=== PATIENT | male | born 1940 | race Caucasian/White ===

== ENCOUNTER 2017-12-08 11:08 | Observation (INO) | payer OTHER ==
[2017-12-08] MEDS ORDERED: morphine CARPU-JECT 2 MG/1 ML DISP.SYRIN IM ONE (11:12)
[2017-12-08] MEDS ORDERED: morphine SULFATE 4 MG/ML VIAL ONE (11:18)
--- NOTE | 2017-12-08 11:20 | PDOC ---
History of Present Illness - General Chief Complaint: Injury Stated Complaint: DISLOCATED L SHOULDER Time Seen by Provider: 12/08/17 11:12 History Source: Patient Exam Limitations: No Limitations - History of Present Illness Initial Comments: 12/08/17 11:24 Sindi 77 YOM with h/o AAA s/p repair, depression, BPH presenting to the ED s/p mechanical fall after tripping on his carpet. No LOC, +hit head against the fan , also landing on his left shoulder. +left shoulder pain and swelling, possibly dislocated. h/o left shoulder dislocation s/p operative repair and reduction. No prodromal sx. 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 no [place], dizziness, weakness, paresthesias, cp, sob, abd pain, back pain or gait instability. Past History - Past Medical History Allergies/Adverse Reactions: Allergies Allergy/AdvReac Type Severity Reaction Status Date / Time No Known Drug Allergies Allergy Verified 12/08/17 11:10 Home Medications: Ambulatory Orders Aspirin [ASA -] 81 mg PO HS 04/01/16 Paroxetine HCl [Paxil -] 20 mg PO HS 04/01/16 Nicotine Mint ([facility]) 1 tab PO PRN PRN 12/08/17 Anemia: No Asthma: No Cancer: No Cardiac Disorders: No CVA: No COPD: No CHF: No Dementia: No Diabetes: No 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) Disorders: Yes (ENLARGED PROSTATE) HTN: No Hypercholesterolemia: No Liver Disease: No Seizures: No Thyroid Disease: No - Surgical History Abdominal Surgery: Yes (ABDOMINAL AORTIC ANEURYSM 2012) Appendectomy: No Cardiac Surgery: No Cholecystectomy: No Lung Surgery: No Neurologic Surgery: No Orthopedic Surgery: Yes (L SHOULDER DISLOCATION, PARTIAL LEFT KNEE REPAIR) - Suicide/Smoking/Psychosocial Hx Smoking History: Former smoker Have you smoked in the past 12 months: No If you are a former smoker, when did you quit?: 2000 Hx Alcohol Use: No Drug/Substance Use Hx: No Substance Use Type: None Hx Substance Use Treatment: No Review of Systems - Review of Systems Able to Perform ROS?: Yes Comments:: 12/08/17 11:26 Constitutional: no fevers or chills. HEENT: no headache or dizziness. CVS: no cp or syncope. Resp: no sob. Abdomen: no abdominal pain, nausea or vomiting. MUSCULOSKELETAL: +joint pain and swelling. No neck or back pain. SKIN: no redness or skin changes, no discharge, no rash. Hematologic: no easy bruising/bleeding. NEUROLOGIC: No headache, LOC or altered mental status. No weakness, numbness or tingling. All other systems reviewed and negative, or as documented in HPI. *Physical Exam - Physical Exam Comments: 12/08/17 11:24 General: GCS 15 NAD HEENT: NCAT, PERRL, EOMI. Airway intact. No hematoma over forehead Neck: neck supple, no midline C spine tenderness, ROM intact. Resp: Lungs clear, no crepitus Chest: no clavicle or chest wall tenderness CVS: RRR, 2+ pulses throughout. Abdomen: Abdomen soft, NTND, nonperitoneal. Back: Back nontender, no midline spinal tenderness, FROM, no stepoffs. MSK: Pelvis stable, ROM limited in abduction, extension and flexion at left shoulder. +left AC tenderness and squared off shoulder with palp paucity, deltoid/axillnary nerve sensation intact. prox strength 4/5 passive ROM limited 2/2 pain. 5/5 shoulder shrug strength. No distal elbow or forearm or wrist tenderness. sensation grossly intact in median/ radial/ulnar distribution. 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 2+ radialis pulses bilaterally and symmetric. Neuro: Alert, no focal neuro deficits. Skin: intact, normal color and well perfused. no bruising or skin dislocation. 12/08/17 11:33 ED Treatment Course - LABORATORY CBC & Chemistry Diagram: 12/08/17 12:20 12/08/17 12:20 - RADIOLOGY Radiology Studies Ordered: Category Date Time Status HEAD CT WITHOUT CONTRAST [CT] Stat CT Scan 12/08/17 11:12 Ordered HUMERUS-LEFT [RAD] Stat Radiology 12/08/17 11:13 Ordered SHOULDER-LEFT [RAD] Stat Radiology 12/08/17 11:13 Ordered Medical Decision Making - Medical Decision Making 12/08/17 11:26 77 YOM s/p trip and fall, +hit forehead, no LOC, also landed on left shoulder c/ o pain and swelling DDx. prox humerus fx, anterior shoulder dislocation. ICH, SDH, closed head injury. clinically doubt c spine injury or syncope, clear historian and mechanical fall history. no cp or respiratory distress or skin change/findings/ wounds. Vital signs stable. pain med administration with IM morphine plan for XR left shoulder/humerus to r/o prox humerus fx/anterior shoulder dislocation and CT head to r/o bleed neurovascular intact over affected area; oriented appropriately, alert and no focal deficits. . only on ASA, no AC. CT head neg. XR LUE: prox humerus displaced fx and joint space widening in glenoid fossa, inferior displacement noted. placed in sling for immobilization. Plan: Ortho cs to [id number]- pt has fall safety concerns given etiology of his injury today and pt feels more comfortable with hospital observation.. basic labs ordered, TxS. admit for pain control, neurovasc checks and supportive care, fall safety prevention and assessment and ortho eval, spoke with JORGE Phelps, in agreement with plan, most likely nonoperative. admitted to hospitalist. 12/08/17 12:00 12/08/17 12:20 *DC/Admit/Observation/Transfer Diagnosis at time of Disposition: Closed fracture of left proximal humerus Qualifiers: Encounter type: initial encounter Fracture morphology: unspecified fracture morphology Qualified Code(s): S42.202A - Unspecified fracture of upper end of left humerus, initial encounter for closed fracture - Discharge Dispostion Condition at time of disposition: Guarded Decision to Admit order: Yes Decision to Admit order Date/Time: 12/08/17 12:20 12/08/17: 12:20pm - Referrals - Patient Instructions - Post Discharge Activity
[2017-12-08 11:30] VITALS: BMI 25.7
[2017-12-08 12:58] LABS: ANION GAP 6 (8-16); BASO % 0.7 % (0-2.0); BLOOD UREA NITROGEN 29 mg/dl (7-18); CHLORIDE 103 mmol/L (98-107); CO2 25 mmol/L (22-28); CREATININE 0.9 mg/dl (0.6-1.3); EOS % 5.5 % (0-4.5); GLUCOSE,RANDOM 121 mg/dl (74-106); HEMATOCRIT 39.3 % (35.4-49); HEMOGLOBIN 13.6 GM/dl (11.7-16.9); LYMPH % 16.9 % (8-40); MCH 32.2 pg (25.7-33.7); MCHC 34.6 g/dl (32.0-35.9); MEAN PLT VOLUME 7.9 fl (7.5-11.1); MONO % 7.1 % (3.8-10.2); NEUT % 69.8 % (42.8-82.8); PLATELET COUNT 167 K/MM3 (134-434); RBC 4.22 M/mm3 (4.00-5.60); SODIUM 134 mmol/L (136-145); WHITE BLOOD COUNT 8.8 K/mm3 (4.0-10.8)
--- NOTE | 2017-12-08 13:20 | HP ---
CHIEF COMPLAINT: s/p mechanical fall, left shoulder pain PCP: Dr Dawson HISTORY OF PRESENT ILLNESS: Patient is a 77 y/o male with a past medical history of anxiety, past surgical history of partial left knee replacement, AAA repair 2012 and left shoulder rotator cuff repair 1978. Patient reports he was ambulating at home, tripped on his area rug and fell onto his left shoulder. He reports ongoing pain to the left upper extremity that worsens upon movement. Patient denies any paresthesia to the upper extremity ER course was notable for: (1)x-ray of left humerus, comminuted displaced left head and neck fracture (2)ct of head no acute pathology (3)chest xray: no infiltrates no effusions noted Recent Travel: none PAST MEDICAL HISTORY: see HPI PAST SURGICAL HISTORY: see HPI Social History: retired, resides at home alone Smoking:none Alcohol:none Drugs: none Family History:non-contributory allergies: No Known Drug Allergies Allergy (Verified 12/08/17 11:10) HOME MEDICATIONS: Home Medications Medication Instructions Recorded Aspirin [ASA -] 81 mg PO HS 04/01/16 Paroxetine HCl [Paxil -] 20 mg PO HS 04/01/16 REVIEW OF SYSTEMS CONSTITUTIONAL: Absent: fever, chills, diaphoresis, generalized weakness, malaise, loss of appetite, weight change HEENT: Absent: rhinorrhea, nasal congestion, throat pain, throat swelling, difficulty swallowing, mouth swelling, ear pain, eye pain, visual changes CARDIOVASCULAR: Absent: chest pain, syncope, palpitations, irregular heart rate, lightheadedness , peripheral edema RESPIRATORY: Absent: cough, shortness of breath, dyspnea with exertion, orthopnea, wheezing, stridor, hemoptysis GASTROINTESTINAL: Absent: abdominal pain, abdominal distension, nausea, vomiting, diarrhea, constipation, melena, hematochezia GENITOURINARY: Absent: dysuria, frequency, urgency, hesitancy, hematuria, flank pain, genital pain MUSCULOSKELETAL: Present: left shoulder pain Absent: myalgia, arthralgia, joint swelling, back pain, neck pain SKIN: Absent: rash, itching, pallor HEMATOLOGIC/IMMUNOLOGIC: Absent: easy bleeding, easy bruising, lymphadenopathy, frequent infections ENDOCRINE: Absent: unexplained weight gain, unexplained weight loss, heat intolerance, cold intolerance NEUROLOGIC: Absent: headache, focal weakness or paresthesias, dizziness, unsteady gait, seizure, mental status changes, bladder or bowel incontinence PSYCHIATRIC: Absent: anxiety, depression, suicidal or homicidal ideation, hallucinations. PHYSICAL EXAMINATION Vital Signs - 24 hr 12/08/17 12/08/17 12/08/17 11:09 13:00 13:06 Temperature 98.7 F 97.8 F 97.8 F Pulse Rate 75 68 Pulse Rate [ 68 Right Radial] Respiratory 16 16 16 Rate Blood Pressure 139/90 120/77 Blood Pressure 120/77 [Right Arm] O2 Sat by Pulse 96 96 96 Oximetry (%) GENERAL: Awake, alert, and fully oriented, in no acute distress. HEAD: Normal with no signs of trauma. EYES: Pupils equal, round and reactive to light, extraocular movements intact, sclera anicteric, conjunctiva clear. No lid lag. EARS, NOSE, THROAT: Ears normal, nares patent, oropharynx clear without exudates. Moist mucous membranes. NECK: Normal range of motion, supple without lymphadenopathy, JVD, or masses. LUNGS: Breath sounds equal, clear to auscultation bilaterally. No wheezes, and no crackles. No accessory muscle use. HEART: Regular rate and rhythm, normal S1 and S2 without murmur, rub or gallop. ABDOMEN: Soft, nontender, not distended, normoactive bowel sounds, no guarding, no rebound, no masses. No hepatomegaly or splenomegaly. MUSCULOSKELETAL: Normal range of motion at all joints. No bony deformities or tenderness. No CVA tenderness. UPPER EXTREMITIES: 2+ pulses, warm, well-perfused. No cyanosis. No clubbing. No peripheral edema. LEFT UPPER EXTREMITY: + DEFORMITY OF THE PROXIMAL HUMERUS WITH ECCHYMOSIS, LESS THAN 3 SECOND CAPILLARY REFILL +4 RADIAL PULSES PATIENT IS ABLE TO MOVE THE DIGITS OF THE HAND WITHOUT ANY DIFFICULTY LOWER EXTREMITIES: 2+ pulses, warm, well-perfused. No calf tenderness. No peripheral edema. NEUROLOGICAL: Cranial nerves II-XII intact. Normal speech. Normal gait. PSYCHIATRIC: Cooperative. Good eye contact. Appropriate mood and affect. SKIN: Warm, dry, normal turgor, no rashes or lesions noted, normal capillary refill. Laboratory Results - last 24 hr 12/08/17 12/08/17 12:20 12:20 WBC 8.8 RBC 4.22 Hgb 13.6 Hct 39.3 MCV 93.0 MCH 32.2 MCHC 34.6 RDW 12.0 Plt Count 167 D MPV 7.9 Absolute Neuts (auto) 6.1 Neutrophils % 69.8 Lymphocytes % 16.9 Monocytes % 7.1 Eosinophils % 5.5 H Basophils % 0.7 Sodium 134 L Potassium 4.0 D Chloride 103 Carbon Dioxide 25 D Anion Gap 6 L BUN 29 H Creatinine 0.9 Creat Clearance w eGFR > 60 Random Glucose 121 H D Calcium 9.0 ASSESSMENT/PLAN: 1) ms left humeral head/neck fracture - ortho consulted by ED physician, Dr Mullen - britton to left upper extremity - neurovascular checks -tylenol for minimal pain, oxycodone for severe pain - physical therapy evaluation f/e/n - regular diet ppx - oob - less than 2mn stay dispo: pt requires obsv admission Visit type - Emergency Visit Emergency Visit: Yes ED Registration Date: 12/08/17 Care time: The patient presented to the Emergency Department on the above date and was hospitalized for further evaluation of their emergent condition. - New Patient This patient is new to me today: Yes Date on this admission: 12/08/17 - Critical Care Critical Care patient: No Hospitalist Screening - Colonoscopy Questionnaire Colonoscopy Questionnaire: Colonoscopy Questionnaire - Patient: 50 - 75 years old and never had a screening colonoscopy: No History of colon or rectal polyps, or CA: No History of IBD, Crohn's disease or UC: No History of abdominal radiation therapy as a child: No - Relative: 1 with colon or rectal CA, or polyps at age 60 or younger: No Colon or rectal CA diagnosed at age 45 or younger: No Multiple relatives with colon or rectal CA: No - Outcome: Screening Result: Negative Screen
[2017-12-08] MEDS: oxyCODONE HCL 5 MG TABLET PO PRN (20:00)
[2017-12-08] MEDS: ACETAMINOPHEN 325 MG TABLET (FP) PO PRN (21:08)
[2017-12-08] MEDS ORDERED: ASPIRIN 81 MG CHEWABLE TABLETS PO SCH (22:00)
[2017-12-08] MEDS ORDERED: PARoxetine HCL 20 MG TABLET (FP) PO SCH (22:00)
[2017-12-09] MEDS: oxyCODONE HCL 5 MG TABLET PO PRN (06:33)
--- NOTE | 2017-12-09 08:46 | CON.ORTH ---
Consult Reason for Consultation:: left humerus fx - Alcohol/Substance Use Hx Alcohol Use: No - Smoking History Smoking history: Former smoker Have you smoked in the past 12 months: No If you are a former smoker, when did you quit?: 2000 Home Medications - Allergies Allergies/Adverse Reactions: Allergies Allergy/AdvReac Type Severity Reaction Status Date / Time No Known Drug Allergies Allergy Verified 12/08/17 11:10 - Home Medications Home Medications: Ambulatory Orders Aspirin [ASA -] 81 mg PO HS 04/01/16 Paroxetine HCl [Paxil -] 20 mg PO HS 04/01/16 Nicotine Mint ([facility]) 1 tab PO PRN PRN 12/08/17 Physical Exam for Ortho Vital Signs: Vital Signs Temperature 98.8 F 12/09/17 05:00 Pulse Rate 80 12/09/17 05:00 Respiratory Rate 18 12/09/17 05:00 Blood Pressure 112/59 12/09/17 05:00 O2 Sat by Pulse Oximetry (%) 94 L 12/09/17 05:00 Labs: CBC, BMP 12/08/17 12:20 12/08/17 12:20 - Upper Extremity Shoulder: Yes: Left, Limited ROM, Pain, Swelling, Tenderness, Other (well healed surgical incision, + swelling, ++ ttp, decr rom, nvi) Imaging - Results X-ray: Report Reviewed, Image Reviewed Assessment/Plan 77 y/o male with a past medical history of anxiety, past surgical history of partial left knee replacement, AAA repair 2012 and left shoulder rotator cuff repair 1978. Patient reports he was ambulating at home, tripped on his area rug and fell onto his left shoulder. He reports ongoing pain to the left upper extremity that worsens upon movement. Patient denies any paresthesia to the upper extremity. a/p left proximal humerus fx No surgical treatment at this time sling NWB pain control ok to d/c from ortho pov d/c planning d/w Dr. Levin
--- NOTE | 2017-12-09 11:51 | DS ---
Physical Exam: SUBJECTIVE: Patient seen and examined patient reports feeling well and denies any chest pain or shortness of breath, does report pain to the left upper arm denies any paresthesia extremity OBJECTIVE: Patient is a 77 y/o male with a past medical history of anxiety, past surgical history of partial left knee replacement, AAA repair 2012 and left shoulder rotator cuff repair 1978. Patient reports he was ambulating at home, tripped on his area rug and fell onto his left shoulder. He reports ongoing pain to the left upper extremity that worsens upon movement. Patient denies any paresthesia to the upper extremity ER course was notable for: (1)x-ray of left humerus, comminuted displaced left head and neck fracture (2)ct of head no acute pathology (3)chest xray: no infiltrates no effusions noted Vital Signs Period Temp Pulse Resp BP Sys/Verde Pulse Ox Last 24 Hr 97.6 F-98.8 F 68-84 16-18 97-120/55-77 94-96 PHYSICAL EXAM GENERAL: Awake, alert, and fully oriented, in no acute distress. HEAD: Normal with no signs of trauma. EYES: Pupils equal, round and reactive to light, extraocular movements intact, sclera anicteric, conjunctiva clear. No lid lag. EARS, NOSE, THROAT: Ears normal, nares patent, oropharynx clear without exudates. Moist mucous membranes. NECK: Normal range of motion, supple without lymphadenopathy, JVD, or masses. LUNGS: Breath sounds equal, clear to auscultation bilaterally. No wheezes, and no crackles. No accessory muscle use. HEART: Regular rate and rhythm, normal S1 and S2 without murmur, rub or gallop. ABDOMEN: Soft, nontender, not distended, normoactive bowel sounds, no guarding, no rebound, no masses. No hepatomegaly or splenomegaly. MUSCULOSKELETAL: Normal range of motion at all joints. No bony deformities or tenderness. No CVA tenderness. UPPER EXTREMITIES: 2+ pulses, warm, well-perfused. No cyanosis. No clubbing. No peripheral edema. LEFT UPPER EXTREMITY: + DEFORMITY OF THE PROXIMAL HUMERUS WITH ECCHYMOSIS, LESS THAN 3 SECOND CAPILLARY REFILL +4 RADIAL PULSES PATIENT IS ABLE TO MOVE THE DIGITS OF THE HAND WITHOUT ANY DIFFICULTY LOWER EXTREMITIES: 2+ pulses, warm, well-perfused. No calf tenderness. No peripheral edema. NEUROLOGICAL: Cranial nerves II-XII intact. Normal speech. Normal gait. PSYCHIATRIC: Cooperative. Good eye contact. Appropriate mood and affect. SKIN: Warm, dry, normal turgor, no rashes or lesions noted, normal capillary refill. LABS Laboratory Results - last 24 hr 12/08/17 12/08/17 12/08/17 12:20 12:20 12:20 WBC 8.8 RBC 4.22 Hgb 13.6 Hct 39.3 MCV 93.0 MCH 32.2 MCHC 34.6 RDW 12.0 Plt Count 167 D MPV 7.9 Absolute Neuts (auto) 6.1 Neutrophils % 69.8 Lymphocytes % 16.9 Monocytes % 7.1 Eosinophils % 5.5 H Basophils % 0.7 Sodium 134 L Potassium 4.0 D Chloride 103 Carbon Dioxide 25 D Anion Gap 6 L BUN 29 H Creatinine 0.9 Creat Clearance w eGFR > 60 Random Glucose 121 H D Calcium 9.0 Blood Type O NEGATIVE Antibody Screen Negative HOSPITAL COURSE: patient was admitted from the emergency department to observation for pain management for a left humeral head/neck fracture. Orthopedic surgeon (JORGE morales) was consulted. Sling applied, the patient ambulated throughout nursing station without any difficulty. Pain was well controlled with narcotic and nonnarcotic management. Date of Admission:12/08/17 Date of Discharge: 12/09/17 Minutes to complete discharge: 45 Discharge Summary Reason For Visit: CLOSED FRACTURE OF LEFT PROXIMAL HUMERUS Current Active Problems Closed fracture of left proximal humerus (Acute) Condition: Guarded - Instructions Referrals: Dirk Funez MD [Primary Care Provider] - - Home Medications Comprehensive Discharge Medication List: Ambulatory Orders Aspirin [ASA -] 81 mg PO HS 04/01/16 Paroxetine HCl [Paxil -] 20 mg PO HS 04/01/16 Nicotine Mint ([facility]) 1 tab PO PRN PRN 12/08/17
--- NOTE | 2017-12-09 14:33 | EKG ---
Test Reason : Blood Pressure : / mmHG Vent. Rate : 074 BPM Atrial Rate : 074 BPM P-R Int : 168 ms QRS Dur : 082 ms QT Int : 386 ms P-R-T Axes : -10 005 029 degrees QTc Int : 428 ms POOR DATA QUALITY, INTERPRETATION MAY BE ADVERSELY AFFECTED NORMAL SINUS RHYTHM NORMAL ECG WHEN COMPARED WITH ECG OF 06-OCT-2013 12:54, PREMATURE VENTRICULAR COMPLEXES ARE NO LONGER PRESENT Confirmed by ANDRAE CALERO, LEONOR ([id number]) on 12/09/2017 2:32:39 PM Referred By: MD CHAPPELL Confirmed By:LEONOR ABEBE MD
[2017-12-09 14:36] VITALS: BP 121/58; PULSE 70; TEMP 97.6
[2017-12-09] MEDS: ACETAMINOPHEN 325 MG TABLET (FP) PO PRN (15:15)
== END 2017-12-09 16:30 | disposition home health service (06) ==
LOC: FER 11:08 → FM/S 12:18
PROVIDERS: ADMIT Internal Medicine; ATTEND Nurse Practitioner Family
PROC: 3E023NZ Introduction of Analgesics, Hypnotics, Sedatives into Muscle, Percutaneous Approach (ICD-10-PCS; principal; 2017-12-08)
DX: S42.202A Unspecified fracture of upper end of left humerus, initial encounter for closed fracture (principal); W01.198A Fall on same level from slipping, tripping and stumbling with subsequent striking against other object, initial encounter; Y93.01 Activity, walking, marching and hiking; Y92.009 Unspecified place in unspecified non-institutional (private) residence as the place of occurrence of the external cause; F41.9 Anxiety disorder, unspecified; F32.9 Major depressive disorder, single episode, unspecified; N40.0 Benign prostatic hyperplasia without lower urinary tract symptoms; Z86.79 Personal history of other diseases of the circulatory system; Z79.82 Long term (current) use of aspirin; Z87.891 Personal history of nicotine dependence
CPT/HCPCS: 36415; 70450-TC; 71045-TC-FY; 73030-TC-LT-FY; 73060-TC-LT-FY; 80048; 85025; 86850; 86900; 86901; 93005; 96372; 97116-GP; 97162-GP; 99284-25; G0378

== ENCOUNTER 2017-12-17 09:30 | Inpatient (IN) | payer OTHER ==
[2017-12-17 09:51] VITALS: BMI 19.5
--- NOTE | 2017-12-17 10:06 | PDOC ---
History of Present Illness - General Chief Complaint: Nausea Stated Complaint: shaking,nausea Time Seen by Provider: 12/17/17 09:32 History Source: Patient Exam Limitations: No Limitations - History of Present Illness Initial Comments: 12/17/17 10:11 Pt is a 77y M hx of AAA sp repair, depression, bph, recent hospitalization for humeral fracture s/p fall about 1 week ago presents with complaint of nausea/ chills that started approximately 3am. Pt endorses feeling weak/malaise. Pt endorses a mild nonproductive cough the past few days. Deneis any cp, sob, abd pain, dysuria, diarrhea, melena. Pt still has mild pain in his shoulder that has been improving every day. PMD:Dr. Savage Past History - Past Medical History Allergies/Adverse Reactions: Allergies Allergy/AdvReac Type Severity Reaction Status Date / Time No Known Drug Allergies Allergy Verified 12/08/17 11:10 Home Medications: Ambulatory Orders Aspirin [ASA -] 81 mg PO HS 04/01/16 Paroxetine HCl [Paxil -] 20 mg PO HS 04/01/16 Nicotine Mint ([facility]) 1 tab PO PRN PRN 12/08/17 Acetaminophen [Tylenol .Regular Strength -] 650 mg PO Q4H PRN tablet 12/09/17 oxyCODONE HCL [Roxicodone -] 5 mg PO Q6H PRN #28 tablet MDD 4 12/09/17 Anemia: No Asthma: No Cancer: No Cardiac Disorders: No CVA: No COPD: No CHF: No Dementia: No Diabetes: No 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) Disorders: Yes (ENLARGED PROSTATE) HTN: No Hypercholesterolemia: No Liver Disease: No Psychiatric Problems: Yes (DEPRESSION) Seizures: No Thyroid Disease: No - Surgical History Abdominal Surgery: Yes (ABDOMINAL AORTIC ANEURYSM 2012) Appendectomy: No Cardiac Surgery: No Cholecystectomy: No Lung Surgery: No Neurologic Surgery: No Orthopedic Surgery: Yes (L SHOULDER DISLOCATION, PARTIAL LEFT KNEE REPLACEMENT) - Suicide/Smoking/Psychosocial Hx Smoking History: Never smoked Have you smoked in the past 12 months: No If you are a former smoker, when did you quit?: 2000 Information on smoking cessation initiated: No 'Breaking Loose' booklet given: 12/08/17 Hx Alcohol Use: No Drug/Substance Use Hx: No Substance Use Type: None Hx Substance Use Treatment: No Review of Systems - Review of Systems Able to Perform ROS?: Yes Comments:: 12/17/17 10:53 Constitutional - +Chills, malaise no reported Fever, HEENT: no reported vision changes, sore throat Respiratory: +cough, no reported sob, hemoptysis Cardiac: no reported chest pain, palpitations, light headedness, leg swelling Abd/GI: no reported abd pain, nausea, vomiting, blood per rectum, melena, diarrhea : no reported dysuria, frequency, discharge Musculskelatal - no reported back pain, joint swelling skin - no reported bruising, erythema, rash neurological: no reported headache, numbness, focal weakness, tingling, ataxia, hematologic: no reported easy bruising, easy bleeding *Physical Exam - Vital Signs Last Vital Signs Temp Pulse Resp BP Pulse Ox 100.6 F H 112 H 20 139/78 100 12/17/17 09:31 12/17/17 09:31 12/17/17 09:31 12/17/17 09:31 12/17/17 09:31 - Physical Exam Comments: 12/17/17 10:55 GENERAL: The patient is awake, alert, and fully oriented, Nontoxic - in no acute distress. HEAD: Normocephalic, atraumatic. EYES: extraocular movements intact, sclera anicteric, conjunctiva clear. ENT: Normal voice, Moist mucous membranes. NECK: Normal range of motion, supple LUNGS: Breath sounds equal, clear to auscultation bilaterally. No wheezes, no rhonchi, no rales. HEART: tachycardic ABDOMEN: Soft, nontender. No guarding, no rebound. No CVA tenderness EXTREMITIES: ecchymosis on L chest/shoulder, trace edema on LUE, normal n/v status on LUE, no LE edema on legs NEUROLOGICAL: No facial assymetry, Normal speech, PSYCH: Normal mood, normal affect. SKIN: hot to touch, Dry, normal turgor, Heart Score/ECG Review - ECG Impressions Comment:: 12/17/17 10:56 Twelve-lead EKG was performed and reviewed by me. There is normal sinus rhythm with a rate of 120 The axis is normal. The intervals are normal. There is normal R wave progression Impression: Sinus tachycardia ED Treatment Course - LABORATORY CBC & Chemistry Diagram: 12/17/17 10:45 12/17/17 10:45 - RADIOLOGY Radiology Studies Ordered: Category Date Time Status CHEST X-RAY PORTABLE* [RAD] Stat Radiology 12/17/17 09:56 Ordered Medical Decision Making - Critical Care Time Total Critical Care Time (minutes): 35 Critical Care Statement: The care of this patient involved high complexity decision making to prevent further life threatening deterioration of the patient 's condition and/or to evaluate & treat vital organ system(s) failure or risk of failure. - Medical Decision Making 12/17/17 10:56 77-year-old gentleman history of recent shoulder injury presents with malaise, chills, mild cough. Exam is unremarkable besides being hot to touch and being tachycardic. Sepsis order set obtained, differential includes occult infection will rule out pneumonia, UTI Will reassess 12/17/17 13:09 labs reviewed no leukocytosis noted lactic acid slightly elevated at 2.2 trop slightly elevated at .11 - suspect trop leak from his tachycardia no cp or signs of ischemia on his ekg will admit for further management pt had only a 1 night stay 1 week ago - will treat for CAP with ceftriaxone and azithromycin case dw ART PSYCHOTHERAPIST OR THERAPIST syed agree with management stable fo rmed surg pts vitals were repeated and are much improved, though bp is a bit soft. will continue hydration Case discussed in detail with admitting physician including history, physical exam and ancillary studies. Admitting physician has assumed care for the patient, will follow all pending diagnostics and will complete the evaluation and treatment. *DC/Admit/Observation/Transfer Diagnosis at time of Disposition: Pneumonia Qualifiers: Pneumonia type: due to unspecified organism Laterality: right Lung location: unspecified part of lung Qualified Code(s): J18.9 - Pneumonia, unspecified organism Closed fracture of left proximal humerus Qualifiers: Encounter type: initial encounter Fracture morphology: unspecified fracture morphology Qualified Code(s): S42.202A - Unspecified fracture of upper end of left humerus, initial encounter for closed fracture Sepsis Qualifiers: Sepsis type: sepsis due to unspecified organism Qualified Code(s): A41.9 - Sepsis, unspecified organism - Discharge Dispostion Condition at time of disposition: Guarded Decision to Admit order: Yes - Referrals - Patient Instructions - Post Discharge Activity
[2017-12-17] MEDS ORDERED: ACETAMINOPHEN 325 MG TABLET (FP) PO ONE (10:24)
[2017-12-17 11:03] LABS: HEMOGLOBIN 11.9 GM/dl (11.7-16.9); MCH 31.8 pg (25.7-33.7); MCHC 34.1 g/dl (32.0-35.9); MEAN CELL VOLUME 93.1 fl (80-96); MEAN PLT VOLUME 7.5 fl (7.5-11.1); PLATELET COUNT 245 K/MM3 (134-434); RBC 3.76 M/mm3 (4.00-5.60); RDW 12.5 % (11.9-15.9); WHITE BLOOD COUNT 9.6 K/mm3 (4.0-10.8)
[2017-12-17] MEDS ORDERED: ACETAMINOPHEN 325 MG TABLET (FP) ONE (11:03)
[2017-12-17 11:13] LABS: ACTIVATED PTT 27.7 SECONDS (25.2-36.5)
[2017-12-17] MEDS ORDERED: SODIUM CHLORIDE 500 ML IV STA (11:14)
[2017-12-17] MEDS ORDERED: AZITHROMYCIN IVPB 500 MG in DEXTROSE 5%-WATER - 250 ML IVPB ONE (11:14)
[2017-12-17] MEDS ORDERED: CEFTRIAXONE 1 GM in DEXTROSE 5%-WATER - 50 ML IVPB ONE (11:14)
[2017-12-17 11:18] LABS: INR 1.2 (0.82-1.09); PROTHROMBIN TIME (PATIENT) 13.4 SEC (10.2-13.0)
[2017-12-17 12:06] LABS: PLATELET ESTIMATE ADEQUATE
[2017-12-17] MEDS ORDERED: AZITHROMYCIN 500 MG VIAL IVPB ONE (12:07)
[2017-12-17] MEDS ORDERED: cefTRIAXone SODIUM 1 GM VIAL ONE (12:07)
[2017-12-17 12:20] LABS: VENOUS PC02 46.8 mmHg (38-52); VENOUS PH 7.39 (7.32-7.42); VENOUS PO2 23.4 mmHg (28-48)
[2017-12-17 12:44] LABS: ALBUMIN 3.2 g/dl (3.4-5.0); ANION GAP 8 (8-16); BLOOD UREA NITROGEN 25 mg/dL (7-18); CALCIUM 8.9 mg/dL (8.5-10.1); CHLORIDE 104 mmol/L (98-107); CO2 27 mmol/L (21-32); CREATININE 1.1 mg/dL (0.7-1.3); GLUCOSE,RANDOM 101 mg/dL (74-106); POTASSIUM 4.6 mmol/L (3.5-5.1); SGOT/AST 23 U/L (15-37); SGPT/ALT 23 U/L (12-78); SODIUM 139 mmol/L (136-145)
[2017-12-17 12:46] LABS: ALK PHOS 98 U/L (45-117); TOT PROT 6.6 g/dl (6.4-8.2)
--- NOTE | 2017-12-17 12:53 | HP ---
CHIEF COMPLAINT: generalized malaise PCP: Dr Dawson HISTORY OF PRESENT ILLNESS: Patient is a 77 y/o male, with a past medical history of depression, BPH, and a past surgical history of AAA repair. patient reports generalized weakness and malaise for the past week with productive cough. Of note patient was recently discharged from this hospital on December 10 2017 after a observation stay for a left proximal humerus fracture ER course was notable for: (1) chest xray, right lower lobe infiltrate (2)MAXIMUM TEMPERATURE 100.6 (3)lactic acid 2.2 Recent Travel: none PAST MEDICAL HISTORY: see history of present illness PAST SURGICAL HISTORY:see history of present illness Social History: retired resides at home alone Smoking:former smoker quit 2000 Alcohol:none Drugs: none Family History: non-contributory to this admission Allergies No Known Drug Allergies Allergy (Verified 12/08/17 11:10) HOME MEDICATIONS: Home Medications Medication Instructions Recorded Aspirin [ASA -] 81 mg PO HS 04/01/16 Paroxetine HCl [Paxil -] 20 mg PO HS 04/01/16 Nicotine Mint ([facility]) 1 tab PO PRN PRN 12/08/17 Acetaminophen [Tylenol .Regular 650 mg PO Q4H PRN tablet 12/09/17 Strength -] oxyCODONE HCL [Roxicodone -] 5 mg PO Q6H PRN #28 tablet MDD 4 12/09/17 REVIEW OF SYSTEMS CONSTITUTIONAL: present: generalized weakness, malaise Absent: fever, chills, diaphoresis, , loss of appetite, weight change HEENT: Absent: rhinorrhea, nasal congestion, throat pain, throat swelling, difficulty swallowing, mouth swelling, ear pain, eye pain, visual changes CARDIOVASCULAR: Absent: chest pain, syncope, palpitations, irregular heart rate, lightheadedness , peripheral edema RESPIRATORY: Present: cough, Absent: shortness of breath, dyspnea with exertion, orthopnea, wheezing, stridor, hemoptysis GASTROINTESTINAL: Absent: abdominal pain, abdominal distension, nausea, vomiting, diarrhea, constipation, melena, hematochezia GENITOURINARY: Absent: dysuria, frequency, urgency, hesitancy, hematuria, flank pain, genital pain MUSCULOSKELETAL: Absent: myalgia, arthralgia, joint swelling, back pain, neck pain SKIN: Absent: rash, itching, pallor HEMATOLOGIC/IMMUNOLOGIC: Absent: easy bleeding, easy bruising, lymphadenopathy, frequent infections ENDOCRINE: Absent: unexplained weight gain, unexplained weight loss, heat intolerance, cold intolerance NEUROLOGIC: Absent: headache, focal weakness or paresthesias, dizziness, unsteady gait, seizure, mental status changes, bladder or bowel incontinence PSYCHIATRIC: Absent: anxiety, depression, suicidal or homicidal ideation, hallucinations. PHYSICAL EXAMINATION Vital Signs - 24 hr 12/17/17 12/17/17 12/17/17 09:31 11:28 12:12 Temperature 100.6 F H 98.6 F Pulse Rate 112 H Pulse Rate [ 116 H 90 Apical] Respiratory 20 20 18 Rate Blood Pressure 139/78 Blood Pressure 97/53 98/53 [Right Arm] O2 Sat by Pulse 100 97 96 Oximetry (%) 12/17/17 12:48 Temperature Pulse Rate Pulse Rate [ 91 H Apical] Respiratory 18 Rate Blood Pressure Blood Pressure 93/49 [Right Arm] O2 Sat by Pulse 95 Oximetry (%) GENERAL: Awake, alert, and fully oriented, in no acute distress. HEAD: Normal with no signs of trauma. EYES: Pupils equal, round and reactive to light, extraocular movements intact, sclera anicteric, conjunctiva clear. No lid lag. EARS, NOSE, THROAT: Ears normal, nares patent, oropharynx clear without exudates. Moist mucous membranes. NECK: Normal range of motion, supple without lymphadenopathy, JVD, or masses. LUNGS: Breath sounds equal, crackles to billateral bases, clear to apexes, No wheezes No accessory muscle use. HEART: Regular rate and rhythm, normal S1 and S2 without murmur, rub or gallop. ABDOMEN: Soft, nontender, not distended, normoactive bowel sounds, no guarding, no rebound, no masses. No hepatomegaly or splenomegaly. MUSCULOSKELETAL: Normal range of motion at all joints. No bony deformities or tenderness. No CVA tenderness. UPPER EXTREMITIES: ecchymosis noted to the left proximal humerus no deformity noted sling in placed, 2+ pulses, warm, well-perfused. No cyanosis. No clubbing. No peripheral edema. LOWER EXTREMITIES: 2+ pulses, warm, well-perfused. No calf tenderness. No peripheral edema. NEUROLOGICAL: Cranial nerves II-XII intact. Normal speech. Normal gait. PSYCHIATRIC: Cooperative. Good eye contact. Appropriate mood and affect. SKIN: Warm, dry, normal turgor, no rashes or lesions noted, normal capillary refill. Laboratory Results - last 24 hr 12/17/17 12/17/17 12/17/17 10:45 10:45 10:45 WBC 9.6 RBC 3.76 L Hgb 11.9 Hct 35.0 L MCV 93.1 MCH 31.8 MCHC 34.1 RDW 12.5 Plt Count 245 D MPV 7.5 Absolute Neuts (auto) 8.2 Neutrophils % No Result Required. Neutrophils % (Manual) 82.0 Band Neutrophils % 2.0 Lymphocytes % No Result Required. Lymphocytes % (Manual) 12.0 Monocytes % (Manual) 2 L Eosinophils % (Manual) 2.0 Platelet Estimate Adequate PT with INR 13.4 H INR 1.20 PTT (Actin FS) 27.7 VBG pH 7.39 POC VBG pCO2 46.8 POC VBG pO2 23.4 L Mixed VBG HCO3 27.8 H Sodium Potassium Chloride Carbon Dioxide Anion Gap BUN Creatinine Creat Clearance w eGFR Random Glucose Lactic Acid Calcium Total Bilirubin AST ALT Alkaline Phosphatase Troponin I Total Protein Albumin 12/17/17 12/17/17 12/17/17 10:45 10:45 10:45 WBC RBC Hgb Hct MCV MCH MCHC RDW Plt Count MPV Absolute Neuts (auto) Neutrophils % Neutrophils % (Manual) Band Neutrophils % Lymphocytes % Lymphocytes % (Manual) Monocytes % (Manual) Eosinophils % (Manual) Platelet Estimate PT with INR INR PTT (Actin FS) VBG pH POC VBG pCO2 POC VBG pO2 Mixed VBG HCO3 Sodium 139 Potassium 4.6 Chloride 104 Carbon Dioxide 27 Anion Gap 8 BUN 25 H Creatinine 1.1 Creat Clearance w eGFR > 60 Random Glucose 101 Lactic Acid 2.2 H* Calcium 8.9 Total Bilirubin 1.0 AST 23 D ALT 23 Alkaline Phosphatase 98 Troponin I 0.11 H Total Protein 6.6 Albumin 3.2 L ASSESSMENT/PLAN: 1) pulmonary community acquired pneumonia - curb score 2, continue Rocephin and Zithromax - lactic acid elevated, 500ml NS given in ED, continue NS @100ml/hr, repeat lactic acid at 1300 - Pending urine antigens follow-up blood cultures - Combivent nebulizers as needed, keep SpO2 above 92% with supplemental O2 as needed - incentive spiromter - trend WBC and fever curve 2) psych depression - continue home medications 3) cardiovascular elevated troponin - Troponin 0.11, EKG sinus tachycardia nonspecific ST abnormality, elevated troponin likely secondary to ischemic demand, close monitoring continue to trend - Continuous cardiac monitoring F/E/N - regular diet - replete electrolytes when necessary ppx - Heparin - Zantac dispo: Patient requires inpatient admission Hospitalist Screening - Colonoscopy Questionnaire Colonoscopy Questionnaire: Colonoscopy Questionnaire
[2017-12-17] MEDS ORDERED: ACETAMINOPHEN 325 MG TABLET (FP) PO PRN (13:00)
[2017-12-17 13:59] LABS: PH,URINE 5.5 (4.5-8); URINE APPEARANCE Clear; URINE BILIRUBIN Negative (NEGATIVE); URINE COLOR Yellow; URINE GLUCOSE (UA) Negative (NEGATIVE); URINE KETONE Negative (NEGATIVE); URINE LEUK ESTERASE Negative (NEGATIVE); URINE NITRITE Negative (NEGATIVE); URINE PROTEIN Negative (NEGATIVE); URINE UROBILINOGEN 0.2 (0.2-1.0)
[2017-12-17] MEDS ORDERED: SODIUM CHLORIDE 1,000 ML IV SCH (14:00)
[2017-12-17] MEDS ORDERED: ALBUTEROL SO4 0.083% IH SOL 2.5 MG/3 ML VIAL.NEB. NEB PRN (14:04)
[2017-12-17] MEDS ORDERED: ENOXAPARIN NA (PORCINE) 60 MG/0.6 ML DISP.SYRIN SQ SCH (18:00)
[2017-12-17] MEDS: DOCUSATE SODIUM 100 MG CAPSULE (FP) PO SCH (21:37)
[2017-12-17] MEDS ORDERED: ASPIRIN 81 MG CHEWABLE TABLETS PO SCH (22:00)
[2017-12-17] MEDS ORDERED: HEPARIN NA (PORCINE) 5,000 UNITS/ML 1ML VIAL SQ SCH (22:00)
[2017-12-17] MEDS ORDERED: RANITIDINE HCL 150 MG TABLET (FP) PO SCH (22:00)
--- NOTE | 2017-12-17 23:26 | HOSP ---
Subjective - Review of Symptoms Events since last encounter: Hospitalist Encounter Was informed by primary team that the patient's troponin is elevated After speaking with the RN the Technology Analyst requests patient to be transferred to Telemetry at the [facility] Assessment Patient is a 77 y/o male, with a past medical history of depression, BPH, and a past surgical history of AAA repair. patient reports generalized weakness and malaise for the past week with productive cough. Admitted for Pneumonia Plan: Nursing Supervisor Assembly Department aware, transfer orders placed by SAMUEL Valdez. Patient awaiting bed Stat EKG ordered for comparison EKG-showed Posterior Infarct, possibly acute, Acute TN, STEMI, changes from initial ST with ST abnormality Call placed to Cardiology, discussed with Dr. Hamitlon Asa 162mg ordered Patient denies chest pain, chest pressure, palpitations, back pain,SOB at present. Patient awaiting transport via EMS [facility] Musculoskeletal: Yes: Extremity Pain Physical Examination Vital Signs: Vital Signs Temperature 98 F 12/17/17 15:14 Pulse Rate 101 H 12/17/17 15:14 Respiratory Rate 18 12/17/17 15:14 Blood Pressure 97/72 12/17/17 15:14 O2 Sat by Pulse Oximetry (%) 97 12/17/17 21:00 Constitutional: Yes: No Distress, Calm, Thin Eyes: Yes: WNL, Conjunctiva Clear, PERRL HENT: Yes: WNL, Atraumatic, Normocephalic Neck: Yes: WNL, Supple, Trachea Midline Cardiovascular: Yes: Regular Rate and Rhythm, S1, S2 Respiratory: Yes: Diminished, On Nasal O2 (right base) Gastrointestinal: Yes: Soft, Hypoactive Bowel Sounds Renal/: Yes: WNL Musculoskeletal: Yes: Other (left humeral pain) Extremities: Yes: Other (ecchymosis to left humerus with sling) Edema: No Peripheral Pulses WNL: Yes Integumentary: Yes: Bruising Neurological: Yes: WNL, Alert, Oriented, Cran Nerves II-XII Intact Psychiatric: Yes: WNL, Alert, Oriented Labs: CBC, BMP 12/17/17 10:45 12/17/17 10:45 Laboratory Results - last 24 hr 12/17/17 12/17/17 12/17/17 10:45 10:45 10:45 WBC 9.6 RBC 3.76 L Hgb 11.9 Hct 35.0 L MCV 93.1 MCH 31.8 MCHC 34.1 RDW 12.5 Plt Count 245 D MPV 7.5 Absolute Neuts (auto) 8.2 Neutrophils % No Result Required. Neutrophils % (Manual) 82.0 Band Neutrophils % 2.0 Lymphocytes % No Result Required. Lymphocytes % (Manual) 12.0 Monocytes % (Manual) 2 L Eosinophils % (Manual) 2.0 Platelet Estimate Adequate PT with INR 13.4 H INR 1.20 PTT (Actin FS) 27.7 VBG pH 7.39 POC VBG pCO2 46.8 POC VBG pO2 23.4 L Mixed VBG HCO3 27.8 H Sodium Potassium Chloride Carbon Dioxide Anion Gap BUN Creatinine Creat Clearance w eGFR Random Glucose Lactic Acid Calcium Total Bilirubin AST ALT Alkaline Phosphatase Creatine Kinase Creatine Kinase Index CK-MB (CK-2) Troponin I Total Protein Albumin Urine Color Urine Appearance Urine pH Ur Specific [place] Urine Protein Urine Glucose (UA) Urine Ketones Urine Blood Urine Nitrite Urine Bilirubin Urine Urobilinogen Ur Leukocyte Esterase 12/17/17 12/17/17 12/17/17 10:45 10:45 10:45 WBC RBC Hgb Hct MCV MCH MCHC RDW Plt Count MPV Absolute Neuts (auto) Neutrophils % Neutrophils % (Manual) Band Neutrophils % Lymphocytes % Lymphocytes % (Manual) Monocytes % (Manual) Eosinophils % (Manual) Platelet Estimate PT with INR INR PTT (Actin FS) VBG pH POC VBG pCO2 POC VBG pO2 Mixed VBG HCO3 Sodium 139 Potassium 4.6 Chloride 104 Carbon Dioxide 27 Anion Gap 8 BUN 25 H Creatinine 1.1 Creat Clearance w eGFR > 60 Random Glucose 101 Lactic Acid 2.2 H* Calcium 8.9 Total Bilirubin 1.0 AST 23 D ALT 23 Alkaline Phosphatase 98 Creatine Kinase Creatine Kinase Index CK-MB (CK-2) Troponin I 0.11 H Total Protein 6.6 Albumin 3.2 L Urine Color Urine Appearance Urine pH Ur Specific [place] Urine Protein Urine Glucose (UA) Urine Ketones Urine Blood Urine Nitrite Urine Bilirubin Urine Urobilinogen Ur Leukocyte Esterase 12/17/17 12/17/17 12/17/17 13:00 13:52 16:00 WBC RBC Hgb Hct MCV MCH MCHC RDW Plt Count MPV Absolute Neuts (auto) Neutrophils % Neutrophils % (Manual) Band Neutrophils % Lymphocytes % Lymphocytes % (Manual) Monocytes % (Manual) Eosinophils % (Manual) Platelet Estimate PT with INR INR PTT (Actin FS) VBG pH POC VBG pCO2 POC VBG pO2 Mixed VBG HCO3 Sodium Potassium Chloride Carbon Dioxide Anion Gap BUN Creatinine Creat Clearance w eGFR Random Glucose Lactic Acid 1.1 Calcium Total Bilirubin AST ALT Alkaline Phosphatase Creatine Kinase Creatine Kinase Index CK-MB (CK-2) Troponin I 1.17 H* Total Protein Albumin Urine Color Yellow Urine Appearance Clear Urine pH 5.5 Ur Specific [place] 1.010 Urine Protein Negative Urine Glucose (UA) Negative Urine Ketones Negative Urine Blood Negative Urine Nitrite Negative Urine Bilirubin Negative Urine Urobilinogen 0.2 Ur Leukocyte Esterase Negative 12/17/17 12/17/17 12/17/17 16:00 22:00 22:00 WBC RBC Hgb Hct MCV MCH MCHC RDW Plt Count MPV Absolute Neuts (auto) Neutrophils % Neutrophils % (Manual) Band Neutrophils % Lymphocytes % Lymphocytes % (Manual) Monocytes % (Manual) Eosinophils % (Manual) Platelet Estimate PT with INR INR PTT (Actin FS) VBG pH POC VBG pCO2 POC VBG pO2 Mixed VBG HCO3 Sodium Potassium Chloride Carbon Dioxide Anion Gap BUN Creatinine Creat Clearance w eGFR Random Glucose Lactic Acid Calcium Total Bilirubin AST ALT Alkaline Phosphatase Creatine Kinase 188 335 H Creatine Kinase Index 8.1 H* 7.7 H* CK-MB (CK-2) 15.4 H 25.9 H Troponin I 3.82 H* D Total Protein Albumin Urine Color Urine Appearance Urine pH Ur Specific [place] Urine Protein Urine Glucose (UA) Urine Ketones Urine Blood Urine Nitrite Urine Bilirubin Urine Urobilinogen Ur Leukocyte Esterase Current Medications Generic Name Dose Route Start Last Admin Trade Name Freq PRN Reason Stop Dose Admin Acetaminophen 650 mg 12/17/17 13:00 Tylenol - PO Q4H PRN FEVER Albuterol Sulfate 1 amp 12/17/17 14:04 Ventolin 0.083% Nebulizer Soln - NEB Q4H PRN SHORT OF BREATH/WHEEZING Aspirin 81 mg 12/17/17 22:00 12/17/17 21:37 Asa - PO 81 mg HS CHANTELLE Administration Docusate Sodium 100 mg 12/17/17 14:00 12/17/17 21:37 Colace - PO 100 mg TID CHANTELLE Administration Enoxaparin Sodium 60 mg 12/17/17 18:00 12/17/17 20:03 Lovenox - SQ 60 mg Q12H CHANTELLE Administration Sodium Chloride 1,000 mls @ 100 mls/hr 12/17/17 14:00 12/17/17 14:25 Normal Saline - IV 100 mls/hr ASDIR CHANTELLE Administration Azithromycin 250 mg/ Dextrose 250 mls @ 250 mls/hr 12/18/17 10:00 IVPB DAILY CHANTELLE Ceftriaxone Sodium 1 gm in 50 mls @ 100 mls/hr 12/18/17 10:00 Rocephin 1gm Ivpb (Pre-Docked) IVPB DAILY CHANTELLE Protocol Ranitidine HCl 150 mg 12/17/17 22:00 12/17/17 21:37 Zantac - PO 150 mg BID CHANTELLE Administration Intake & Output 12/14/17 12/15/17 12/16/17 12/17/17 23:59 23:59 23:59 23:59 Weight 60 kg Critical Care Total Critical Care Time (in minutes): 35 Critical Care Statement: The care of this patient involved high complexity decision making to prevent further life threatening deterioration of the patient 's condition and/or to evaluate & treat vital organ system(s) failure or risk of failure.
[2017-12-17] MEDS ORDERED: ASPIRIN 81 MG CHEWABLE TABLETS PO ONE (23:47)
[2017-12-18] MEDS ORDERED: diphenhydrAMINE HCL 25 MG CAPSULE (FP) PO ONE ×3 (01:39→21:34)
--- NOTE | 2017-12-18 01:45 | PN ---
Progress Note (short form) - Note Progress Note: ICU Resident Note HPI: Briefly, 77yo M with h/o of AAA (repaired in 2012), BPH, and depression who initially presented with b/l pneumonia noted at Street to have L underarm discomfort. Pt has been having these symptoms intermittently, however attributed it to fall where he fractured his humerus. Currently pt does not have any complaints. He denies any chest pain, underarm pain, shortness of breath, diaphoresis, jaw claudication, abdominal pain, palpitations, fever/ chills, back pain. His only need is to receive his home Paxil dose and if he could possibly have anything to aid his sleep. Brief PE: Gen: Resting comfortably laying in bed, alert, oriented x3 HEENT: EOMI, CHRISTIAN, sclera anicteric, MMM Neck: No JVD Lungs: CTA b/l no accessory muscle use Cardiac: regular rhythm with 87bpm on overhead monitor, no murmurs appreciated at the moment, PMI at apex Abd: soft, NT/ND, normoactive BS, no bruits auscultated currently Ext: no edema noted A/P: Elevated troponins 2/2 to NSTEMI Multilobar pneumonia H/o Depression H/o AAA s/p repair (2012) H/o BPH H/o Constipation Dr. Santos aware of pt --ASA 162mg given PO If pain resurfaces can give morphine vs. nitro SL if BP allows Rpt cardiac profile in AM (increasing troponins to 3.1) ABX per primary team: Agree with Zithromax and Rocephin Urine and Blood cultures pending Tylenol PRN for fevers CXR and Chest CT reviewed Will reinitiate Paxil 5mg PO HS as pt reports he takes this nightly Benadryl 25mg PO for sleep aid tonight ONCE Continue Colace FEN: No fluids indicated, no electrolyte abnormalities currently, regular diet PPX: DVT - Lovenox already on board; GI - Zantic 150mg PO BID Dispo: Telemetry monitoring; pt currently in ICU due to lack of telemetry beds available? Loki Pearson, DO - IM PGY-2
[2017-12-18] MEDS ORDERED: ACETAMINOPHEN 325 MG TABLET (FP) PO PRN ×2 (01:55→01:59)
[2017-12-18] MEDS ORDERED: ALBUTEROL SO4 0.083% IH SOL 2.5 MG/3 ML VIAL.NEB. NEB PRN (01:55)
[2017-12-18] MEDS ORDERED: ALBUTEROL SO4 2.5/IPRATROPIUM 0.5 INH SOL 3 ML VIAL.NEB. NEB PRN (01:59)
[2017-12-18] MEDS ORDERED: DOCUSATE SODIUM 100 MG CAPSULE (FP) PO SCH (06:00)
[2017-12-18] MEDS ORDERED: ENOXAPARIN NA (PORCINE) 60 MG/0.6 ML DISP.SYRIN SQ SCH ×2 (06:00→08:00)
[2017-12-18 06:09] LABS: BASO % 0.3 % (0-2.0); EOS % 2.2 % (0-4.5); HEMATOCRIT 27.1 % (35.4-49); HEMOGLOBIN 9.5 GM/dL (11.7-16.9); LYMPH % 12.7 % (8-40); MCH 32.3 pg (25.7-33.7); MEAN CELL VOLUME 92.3 fl (80-96); MEAN PLT VOLUME 7.6 fl (7.5-11.1); MONO % 5.7 % (3.8-10.2); NEUT % 79.1 % (42.8-82.8); PLATELET COUNT 179 K/MM3 (134-434); RBC 2.93 M/mm3 (4.00-5.60); RDW 13.2 % (11.9-15.9); WHITE BLOOD COUNT 14.2 K/mm3 (4.0-10.0)
[2017-12-18 06:23] LABS: INR 1.32 (0.83-1.09); PROTHROMBIN TIME (PATIENT) 14.9 SEC (9.7-13.0)
[2017-12-18 06:33] LABS: CHLORIDE 107 mmol/L (98-107); POTASSIUM 4.1 mmol/L (3.5-5.1); SODIUM 140 mmol/L (136-145)
[2017-12-18 06:40] LABS: ALBUMIN 2.6 g/dl (3.4-5.0); ALK PHOS 82 U/L (45-117); ANION GAP 6 (8-16); BILIRUBIN,TOTAL 0.7 mg/dL (0.2-1.0); BLOOD UREA NITROGEN 20 mg/dL (7-18); CALCIUM 8.3 mg/dL (8.5-10.1); CO2 27 mmol/L (21-32); CREATININE 0.8 mg/dL (0.7-1.3); GLUCOSE,RANDOM 100 mg/dL (74-106); SGOT/AST 59 U/L (15-37); SGPT/ALT 22 U/L (12-78); TOT PROT 5.6 g/dl (6.4-8.2)
[2017-12-18] MEDS: DOCUSATE SODIUM 100 MG CAPSULE (FP) PO SCH ×4 (07:00→21:28)
--- NOTE | 2017-12-18 08:35 | PN ---
Progress Note (short form) - Note Progress Note: Chief Complaint: Events noted, notes reviewed, denies any chest pain or dyspnea , reports left arm discomfort at the fracture site History of Present Illness: Seen and examined in the ICU. Full consult dictated - Current Medication List Current Medications: Current Medications Acetaminophen (Tylenol -) 650 mg PO Q4H PRN PRN Reason: FEVER Albuterol/Ipratropium (Duoneb -) 1 amp NEB Q4H PRN PRN Reason: SHORTNESS OF BREATH Aspirin (Asa -) 81 mg PO HS [facility] Docusate Sodium (Colace -) 100 mg PO TID [facility] Last Admin: 12/18/17 07:00 Dose: 100 mg Enoxaparin Sodium (Lovenox -) 60 mg SQ BID@0800,2000 [facility] Azithromycin 250 mg/ Dextrose 250 mls @ 250 mls/hr IVPB DAILY [facility] Ceftriaxone Sodium 1 gm/ (Dextrose) 50 mls @ 100 mls/hr IVPB DAILY [facility]; Protocol Paroxetine HCl (Paxil -) 5 mg PO HS [facility] Ranitidine HCl (Zantac -) 150 mg PO BID [facility] Review of Systems - Review of Systems Cardiovascular: As noted above Respiratory: denies: Hemoptysis, Orthopnea, PND reoprts: Cough Gastrointestinal: denies: Abdominal Pain, Constipation, Diarrhea, Melena, Nausea , Vomiting, Rectal Bleeding Genitourinary: denies: Dysuria, Hematuria Musculoskeletal: No symptoms reported Neurological: denies: Dizziness, Headache, Seizure Endocrine: denies: Excessive Sweating - Objective Vital Signs: Last Vital Signs Temp Pulse Resp BP Pulse Ox 99.9 F H 76 11 L 93/56 99 12/18/17 02:00 12/18/17 06:00 12/18/17 06:00 12/18/17 06:00 12/18/17 02:01 Intake & Output 12/15/17 12/16/17 12/17/17 12/18/17 23:59 23:59 23:59 23:59 Intake Total 100 Balance 100 Weight 132 lb 4.438 oz Neck: Supple Negative JVD No Bruit Cardiovascular: S1 S2 Regular Rate and Rhythm No Murmurs noted Respiratory: Minimal Scattered Rhonchi Gastrointestinal: Soft Benign Normal Bowel Sounds Ext: No Edema Intact Distal Pulses Labs: Troponin, BNP 12/17/17 12/17/17 12/17/17 10:45 16:00 22:00 Troponin I 0.11 H 1.17 H* 3.82 H* D 12/18/17 12/18/17 12/18/17 05:30 05:30 05:30 Troponin I Cancelled 7.43 H* CBC, BMP 12/18/17 05:30 12/18/17 05:30 Hepatic Panel Total Bilirubin 0.7 mg/dL (0.2-1.0) 12/18/17 05:30 AST 59 U/L (15-37) H D 12/18/17 05:30 ALT 22 U/L (12-78) 12/18/17 05:30 Alkaline Phosphatase 82 U/L (45-117) D 12/18/17 05:30 Albumin 2.6 g/dl (3.4-5.0) L 12/18/17 05:30 Assessment/Plan ASSESSMENT: 1. Clinical presentation is consistent with CAD NSTEMI/posterior infarct currently asymptomatic angina pectoris, for medical management considering current co-morbidities 2. 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 Pneumonia, probable community acquired 4. Hypercholesterolemia 5. History of abdominal aortic aneurysm post EVAR 6. Recent fall fracture Humerus for conservative management 7. Anemia 8. Pre-renal azotemia PLAN: 1. B-Blockers hemodynamics permitting 2. ACEI or ARBS hemodynamics permitting 3. High dose statins, Lipitor 4. ASA and Lovenox, in addition Brilinta with caution and close monitoring of CBC/Hg 5. Antibiotics as per the primary team 6. Echocardiography for evaluation of LV size and function and valvular function 7. Pending clinical course will plan either conservative strategy/MPI study and deciding future intervention vs. invasive strategy (intervention is being deferred at this point considering patient is asymptomatic, with extensive pneumonia) Mc Hamilton MD
--- NOTE | 2017-12-18 09:01 | EKG ---
Test Reason : Blood Pressure : / mmHG Vent. Rate : 120 BPM Atrial Rate : 120 BPM P-R Int : 166 ms QRS Dur : 086 ms QT Int : 304 ms P-R-T Axes : 040 005 065 degrees QTc Int : 429 ms SINUS TACHYCARDIA NONSPECIFIC ST ABNORMALITY ABNORMAL ECG WHEN COMPARED WITH ECG OF 08-DEC-2017 12:31, VENT. RATE HAS INCREASED BY [address] NOW DEPRESSED IN ANTERIOR LEADS Confirmed by ARIANA CAELRO, INGA ([id number]) on 12/18/2017 9:01:11 AM Referred By: KWASI WHITLEY Confirmed By:INGA LANE MD
[2017-12-18] MEDS ORDERED: DEXTROSE 5%-WATER - 50 ML IVPB ONE (09:09)
[2017-12-18] MEDS ORDERED: cefTRIAXone SODIUM 1 GM VIAL ONE (09:09)
[2017-12-18] MEDS ORDERED: PT OWN MED DRAWER 7, Y5N ONE ×3 (09:55→20:46)
[2017-12-18] MEDS ORDERED: VALSARTAN 40 MG TABLET (FP) PO SCH (10:00)
[2017-12-18] MEDS ORDERED: metoPROLOL SUCCINATE 25 MG TAB.SR.24H (FP) PO SCH (10:00)
[2017-12-18] MEDS ORDERED: AZITHROMYCIN IVPB 250 MG in DEXTROSE 5%-WATER - 250 ML IVPB SCH ×3 (10:00)
[2017-12-18] MEDS ORDERED: CEFTRIAXONE 1 GM/50 ML BAG IVPB SCH ×2 (10:00)
[2017-12-18] MEDS ORDERED: RANITIDINE HCL 150 MG TABLET (FP) PO SCH ×2 (10:00)
[2017-12-18] MEDS ORDERED: CEFTRIAXONE 1 GM in DEXTROSE 5%-WATER - 50 ML IVPB SCH (10:00)
[2017-12-18] MEDS ORDERED: TICAGRELOR 90 MG TABLET PO SCH (10:00)
--- NOTE | 2017-12-18 10:18 | CONS ---
DATE OF CONSULTATION: 12/18/2017 REQUESTING PHYSICIAN: Hospitalist. CHIEF COMPLAINT: Dyspnea, elevated troponin I, abnormal electrocardiogram consistent with [id number] elevation myocardial infarction. HISTORY OF PRESENT ILLNESS: A 77-year-old male who denied any prior history of coronary artery disease or congestive heart failure, with known history of probable hypercholesterolemia, currently on no statin therapy, abdominal aortic aneurysm, post EVAR endovascular repair, who recently presented to [facility] after sustaining extent of fall and was noted to have fractured humerus, which was treated conservatively. Patient presented to the emergency room last night with increasing dyspnea, cough and upon evaluation in the emergency room he was noted to have evidence of pneumonia. In addition, patient was noted to have elevated troponin I consistent with acute coronary syndrome and subsequently he was noted to have further evaluation of troponin I levels with evolving electrocardiogram. Patient denied any chest discomfort, but had been reporting left shoulder discomfort at the site of the fracture. Denied any orthopnea or paroxysmal nocturnal dyspnea. Denied any peripheral edema. Denied any palpitation, dizziness, lightheadedness, or syncope. PAST MEDICAL HISTORY: Probable hypercholesterolemia currently on no statin therapy, denied any hypertension, or diabetes mellitus, abdominal aortic aneurysm, post endovascular repair. SOCIAL HISTORY: Prior history of tobacco abuse. FAMILY HISTORY: Positive coronary artery disease. ALLERGIES: No known medical allergies. MEDICATIONS: Medical therapy at home included aspirin 81 mg once a day, Paxil 20 mg once a day, and oxycodone 5 mg every 6 hours as needed. REVIEW OF SYSTEMS: Head and Neck: He denies headache, photophobia, blurring of vision. Respiratory: Cough productive of clear sputum. Cardiovascular: As noted above. Gastrointestinal: Denied nausea, vomiting, diarrhea, abdominal discomfort. Genitourinary: No symptoms reported. Musculoskeletal: Left shoulder discomfort. PHYSICAL EXAMINATION: Vitals: Blood pressure is 93/56 mmHg. Pulse rate is 76 beats per minute. Temperature 99.9 Fahrenheit. Head and Neck: Pupils equal, reactive to light and accommodation. Extraocular muscles intact. Anicteric sclera. Negative JVD. No bruit appreciated. Chest: Minimal scattered rhonchi. Cardiovascular: S1, S2 regular. No murmurs appreciated. Abdomen: Soft, benign, normoactive bowel sounds. Extremities: Negative edema, intact peripheral pulses, no calf tenderness. Electrocardiogram revealed sinus rhythm, early transition, ST segment depression in the anterior chest leads suggestive of a posterior wall myocardial infarction. CBC revealed white count 14.3, hemoglobin 9.5, platelet count 175. Basic metabolic profile revealed sodium 140, potassium 4.1, BUN 20, creatinine 0.8, glucose 100. Liver function testing revealed AST of 59. CPK and troponin I levels were noted. Chest x-ray was noted. ASSESSMENT: 1. Clinical presentation consistent with coronary artery disease, [id number] elevation myocardial infarction, acute posterior wall infarct, currently asymptomatic, angina pectoris for conservative medical management considering his current comorbidities. 2. Probable systolic/diastolic left ventricular dysfunction with class 0 [place] Heart Association Classification left ventricular failure. 3. Pneumonia, probably community-acquired. 4. Hypercholesterolemia. 5. History of abdominal aortic aneurysm post endovascular aneurysm repair. 6. Recent fall fractured humerus for conservative management. 7. Anemia. 8. Prerenal azotemia. RECOMMENDATIONS: 1. Beta-blockers, hemodynamics permitting. 2. MARTHA inhibitors or angiotensin receptive blockers, hemodynamics permitting. 3. High-dose statin therapy, Lipitor, or Crestor. 4. Aspirin plus Lovenox and in addition Brilinta therapy with caution and close monitoring of CBC and hemoglobin. 5. Antibiotics as per the primary team. 6. Echocardiography for evaluation left ventricular size and systolic function and valvular function. 7. Pending clinical course will plan either conservative strategy, myocardial perfusion imaging study and deciding future intervention, versus invasive strategy intervention is being deferred at this point considering patient is asymptomatic with his comorbidity, extensive pneumonia. Above was discussed in detail with the patient. Thank you for the kind referral. MILDRED CHENEY M.D. [id number]
--- NOTE | 2017-12-18 12:52 | PN ---
Teaching Attending Note Name of Resident: Esteban Graham ATTENDING PHYSICIAN STATEMENT I saw and evaluated the patient. I reviewed the resident's note and discussed the case with the resident. I agree with the resident's findings and plan as documented. SUBJECTIVE: Pt seen and examined in the ICU. Denies chest pain but with left arm pain. + nonproductive cough. Fever curve trending down. OBJECTIVE: Vital Signs Period Temp Pulse Resp BP Sys/Verde Pulse Ox Last 24 Hr 98 F-99.9 F 73-101 11-20 93-108/56-72 95-99 Intake & Output 12/15/17 12/16/17 12/17/17 12/18/17 23:59 23:59 23:59 23:59 Intake Total 650 Balance 650 Weight 60 kg Gen: NAD at rest Heart: RRR Lung: right base rales Abd: soft, nontender Ext: no edema CBC, BMP 12/18/17 05:30 12/18/17 05:30 Active Medications Acetaminophen (Tylenol -) 650 mg PO Q4H PRN PRN Reason: FEVER Albuterol/Ipratropium (Duoneb -) 1 amp NEB Q4H PRN PRN Reason: SHORTNESS OF BREATH Aspirin (Asa -) 81 mg PO HS [facility] Atorvastatin Calcium (Lipitor -) 80 mg PO HS [facility] Docusate Sodium (Colace -) 100 mg PO TID [facility] Last Admin: 12/18/17 07:00 Dose: 100 mg Enoxaparin Sodium (Lovenox -) 60 mg SQ BID@0800,2000 [facility] Last Admin: 12/18/17 09:00 Dose: 60 mg Azithromycin 250 mg/ Dextrose 250 mls @ 250 mls/hr IVPB DAILY [facility] Last Admin: 12/18/17 11:00 Dose: 250 mls/hr Ceftriaxone Sodium 1 gm/ (Dextrose) 50 mls @ 100 mls/hr IVPB DAILY [facility]; Protocol Last Admin: 12/18/17 09:52 Dose: 100 mls/hr Metoprolol Succinate (Toprol Xl -) 25 mg PO DAILY [facility] Last Admin: 12/18/17 09:57 Dose: 25 mg Paroxetine HCl (Paxil -) 5 mg PO HS [facility] Ranitidine HCl (Zantac -) 150 mg PO BID [facility] Last Admin: 12/18/17 09:52 Dose: 150 mg Ticagrelor (Brilinta -) 90 mg PO BID [facility] Last Admin: 12/18/17 10:00 Dose: 90 mg Valsartan (Diovan -) 40 mg PO DAILY [facility] Last Admin: 12/18/17 10:00 Dose: 40 mg ASSESSMENT AND PLAN: Pneumonia Acute NSTEMI LV Systolic/Diastolic Dysfunction Hypercholesterolemia h/o AAA s/p EVAR Recent Left Humerus fracture - continue antibiotics - f/u cultures - ASA, brilinta - continue anticoagulation - beta oskar, statin - O2 to keep Spo2 >90% - echocardiogram - when more stable, will likely need stress testing - can monitor on telemetry
[2017-12-18] MEDS ORDERED: ARTIFICIAL TEARS (POLYVINYL ALCOHOL 1.4%) OPTH DROPS OU PRN (13:58)
--- NOTE | 2017-12-18 14:31 | CONSULT ---
Consultation: CONSULT REQUEST: We have been asked to medically evaluate this patient for critical care. HISTORY OF PRESENT ILLNESS: 77 y/o M w/PMH of AAA repair (2012), BPH, depression presented to [place] ER with cough and generalized weakness and was found to have pneumonia. Pt was being treated for pna and trops were being trended as part of workup and found to have elevated trops with EKG changes (ST segment depression). Pt was transferred to ICU at [facility]. Pt denies having any chest pain, nausea, radiating pain or discomfort, SOB, chest pressure. He has pain in his L arm due to humeral fracture sustained approx 1 week ago. He otherwise has no complaints at this time. Denies fevers, chills, CP, SOB, abd pain, pain with urination, light-headedness, dizziness, sick contacts, recent travel. PMH: AAA repair 2012, BPH, depression PSHx: AAA repair 2012 SH: Former smoker, quit 2000; lives at home alone Allergies: NKDA REVIEW OF SYSTEMS: CONSTITUTIONAL: +generalized weakness Absent: fever, chills CARDIOVASCULAR: Absent: chest pain, lightheadedness RESPIRATORY: +cough Absent: shortness of breath, dyspnea with exertion GASTROINTESTINAL: Absent: abdominal pain, nausea, vomiting GENITOURINARY: Absent: dysuria, frequency, urgency, hesitancy, hematuria, flank pain, genital pain NEUROLOGIC: Absent: headache, dizziness PHYSICAL EXAMINATION Vital Signs - 24 hr 12/17/17 12/17/17 12/17/17 15:14 21:00 22:30 Temperature 98 F 98.1 F Pulse Rate 100 H Pulse Rate [ 101 H Apical] Respiratory 18 18 Rate Blood Pressure 108/61 Blood Pressure 97/72 [Right Arm] O2 Sat by Pulse 95 97 Oximetry (%) 12/18/17 12/18/17 12/18/17 01:00 02:00 02:01 Temperature 99.8 F H 99.9 F H Pulse Rate 83 85 Pulse Rate [ Apical] Respiratory 15 17 Rate Blood Pressure 98/58 95/58 Blood Pressure [Right Arm] O2 Sat by Pulse 99 Oximetry (%) 12/18/17 12/18/17 12/18/17 04:00 06:00 08:00 Temperature Pulse Rate 73 76 85 Pulse Rate [ Apical] Respiratory 12 11 L 17 Rate Blood Pressure 107/58 93/56 95/60 Blood Pressure [Right Arm] O2 Sat by Pulse Oximetry (%) 12/18/17 12/18/17 12/18/17 08:33 10:00 12:00 Temperature 98.0 F Pulse Rate 84 80 Pulse Rate [ Apical] Respiratory 17 20 20 Rate Blood Pressure 105/67 99/62 Blood Pressure [Right Arm] O2 Sat by Pulse 99 Oximetry (%) GENERAL: Awake, alert, and fully oriented, in no acute distress. EYES:extraocular movements intact, sclera anicteric, conjunctiva clear. EARS, NOSE, THROAT: Moist mucous membranes. LUNGS: Breath sounds equal, clear to auscultation bilaterally. HEART: Regular rate and rhythm, normal S1 and S2 ABDOMEN: Soft, nontender, not distended, normoactive bowel sounds. LOWER EXTREMITIES: warm, well-perfused. No peripheral edema. NEUROLOGICAL: Normal speech PSYCHIATRIC: Cooperative. Good eye contact. Appropriate mood and affect. SKIN: Warm, dry Laboratory Results - last 24 hr 12/17/17 12/17/17 12/17/17 13:00 16:00 16:00 WBC RBC Hgb Hct MCV MCH MCHC RDW Plt Count MPV Absolute Neuts (auto) Neutrophils % Lymphocytes % Monocytes % Eosinophils % Basophils % Nucleated RBC % PT with INR INR Sodium Potassium Chloride Carbon Dioxide Anion Gap BUN Creatinine Creat Clearance w eGFR Random Glucose Lactic Acid 1.1 Calcium Total Bilirubin AST ALT Alkaline Phosphatase Creatine Kinase 188 Creatine Kinase Index 8.1 H* CK-MB (CK-2) 15.4 H Troponin I 1.17 H* Total Protein Albumin Triglycerides Cholesterol Total LDL Cholesterol HDL Cholesterol 12/17/17 12/17/17 12/18/17 22:00 22:00 05:30 WBC 14.2 H RBC 2.93 L Hgb 9.5 L Hct 27.1 L D MCV 92.3 MCH 32.3 MCHC 35.0 RDW 13.2 Plt Count 179 MPV 7.6 Absolute Neuts (auto) 11.2 Neutrophils % 79.1 D Lymphocytes % 12.7 D Monocytes % 5.7 Eosinophils % 2.2 Basophils % 0.3 Nucleated RBC % 0 PT with INR INR Sodium Potassium Chloride Carbon Dioxide Anion Gap BUN Creatinine Creat Clearance w eGFR Random Glucose Lactic Acid Calcium Total Bilirubin AST ALT Alkaline Phosphatase Creatine Kinase 335 H Creatine Kinase Index 7.7 H* CK-MB (CK-2) 25.9 H Troponin I 3.82 H* D Total Protein Albumin Triglycerides Cholesterol Total LDL Cholesterol HDL Cholesterol 12/18/17 12/18/17 12/18/17 05:30 05:30 05:30 WBC RBC Hgb Hct MCV MCH MCHC RDW Plt Count MPV Absolute Neuts (auto) Neutrophils % Lymphocytes % Monocytes % Eosinophils % Basophils % Nucleated RBC % PT with INR 14.90 H INR 1.32 H Sodium 140 Potassium 4.1 Chloride 107 Carbon Dioxide 27 Anion Gap 6 L BUN 20 H Creatinine 0.8 Creat Clearance w eGFR > 60 Random Glucose 100 Lactic Acid Calcium 8.3 L Total Bilirubin 0.7 AST 59 H D ALT 22 Alkaline Phosphatase 82 D Creatine Kinase Creatine Kinase Index CK-MB (CK-2) Troponin I Cancelled Total Protein 5.6 L Albumin 2.6 L Triglycerides Cholesterol Total LDL Cholesterol HDL Cholesterol 12/18/17 12/18/17 12/18/17 05:30 05:30 09:06 WBC RBC Hgb Hct MCV MCH MCHC RDW Plt Count MPV Absolute Neuts (auto) Neutrophils % Lymphocytes % Monocytes % Eosinophils % Basophils % Nucleated RBC % PT with INR INR Sodium Potassium Chloride Carbon Dioxide Anion Gap BUN Creatinine Creat Clearance w eGFR Random Glucose Lactic Acid Calcium Total Bilirubin AST ALT Alkaline Phosphatase Creatine Kinase 428 H Creatine Kinase Index 6.9 H* CK-MB (CK-2) 29.58 H Troponin I 7.43 H* Total Protein Albumin Triglycerides 43 D Cancelled Cholesterol 105 D Cancelled Total LDL Cholesterol 54 D Cancelled HDL Cholesterol 46 Cancelled Active Medications Generic Name Dose Route Start Last Admin Trade Name Freq PRN Reason Stop Dose Admin Acetaminophen 650 mg 12/18/17 01:59 Tylenol - PO Q4H PRN FEVER Albuterol/Ipratropium 1 amp 12/18/17 01:59 Duoneb - NEB Q4H PRN SHORTNESS OF BREATH Artificial Tears 1 drop 12/18/17 13:58 Artificial Tears OU TID PRN DRY EYES Aspirin 81 mg 12/18/17 22:00 Asa - PO HS [facility] Atorvastatin Calcium 80 mg 12/18/17 22:00 Lipitor - PO HS [facility] Docusate Sodium 100 mg 12/18/17 06:00 12/18/17 13:55 Colace - PO 100 mg TID [facility] Administration Enoxaparin Sodium 60 mg 12/18/17 08:00 12/18/17 09:00 Lovenox - SQ 60 mg BID@0800,2000 [facility] Administration Azithromycin 250 mg/ Dextrose 250 mls @ 250 mls/hr 12/18/17 10:00 12/18/17 11 :00 IVPB 250 mls/hr DAILY [facility] Administration Ceftriaxone Sodium 1 gm/ 50 mls @ 100 mls/hr 12/18/17 10:00 12/18/17 09:52 Dextrose IVPB 100 mls/hr DAILY [facility] Administration Protocol Metoprolol Succinate 25 mg 12/18/17 10:00 12/18/17 09:57 Toprol Xl - PO 25 mg DAILY [facility] Administration Nicotine 7 mg 12/19/17 10:00 Nicoderm Patch - TD DAILY [facility] Paroxetine HCl 5 mg 12/18/17 22:00 Paxil - PO HS [facility] Ranitidine HCl 150 mg 12/18/17 10:00 12/18/17 09:52 Zantac - PO 150 mg BID [facility] Administration Ticagrelor 90 mg 12/18/17 10:00 12/18/17 10:00 Brilinta - PO 90 mg BID [facility] Administration Valsartan 40 mg 12/18/17 10:00 12/18/17 10:00 Diovan - PO 40 mg DAILY [facility] Administration ASSESSMENT/PLAN: 77 y/o M w/PMH of AAA repair (2012), BPH, depression presented to [place] ER with cough and generalized weakness and was found to have pneumonia. Found to have concurrent NSTEMI. NSTEMI -ASA, Ticagrelor, Lipitor 80 mg, Tylenol for pain -Lovenox full dose -Cardiology on board -Trend trops until peak -Toprol XL 25 mg po qd -Valsartan 40 mg po qd -ECHO -Check EKG for evolution of UT -O2 supplementation to keep O2 saturation >90% -check TSH, Mg CAP -Monitor CXR in AM -Ceftriaxone -Azithromycin -O2 supplementation to keep O2 saturation >90% -Nicotine dependance -Nicotine patch -Depression -c/w paxil -DVT ppx -on lovenox -FEN -No fluids -Monitor electrolytes -Low fat/cholesterol diet Dispo: Transfer to tele. Visit type - Emergency Visit Emergency Visit: Yes ED Registration Date: 12/17/17 Care time: The patient presented to the Emergency Department on the above date and was hospitalized for further evaluation of their emergent condition. - New Patient This patient is new to me today: Yes Date on this admission: 12/18/17 - Critical Care Critical Care patient: Yes Total Critical Care Time (in minutes): 45 Critical Care Statement: The care of this patient involved high complexity decision making to prevent further life threatening deterioration of the patient 's condition and/or to evaluate & treat vital organ system(s) failure or risk of failure.
--- NOTE | 2017-12-18 18:20 | PN ---
Physical Exam: SUBJECTIVE: Patient seen and examined Events noted. Patient is comfortable with no acute distress. No shortness breath , no fever or chills, lying in bed with no acute distress. OBJECTIVE: Vital Signs Temperature 97 F L 12/18/17 17:17 Pulse Rate 83 12/18/17 17:17 Respiratory Rate 20 12/18/17 17:17 Blood Pressure 144/59 12/18/17 17:17 O2 Sat by Pulse Oximetry (%) 99 12/18/17 08:33 GENERAL: The patient is awake, alert, and fully oriented, in no acute distress. HEAD: Normal with no signs of trauma. EYES: PERRL, extraocular movements intact, sclera anicteric, conjunctiva clear. ENT: Ears normal, oropharynx clear without exudates, moist mucous membranes. NECK: Trachea midline, full range of motion, supple. LUNGS: Breath sounds equal, clear to auscultation bilaterally, no wheezes, no crackles, no accessory muscle use. HEART: Regular rate and rhythm, S1, S2 without murmur, rub or gallop. ABDOMEN: Soft, nontender, nondistended, normoactive bowel sounds, no guarding, no rebound, no hepatosplenomegaly, no masses appreciated. EXTREMITIES: 2+ pulses, warm, well-perfused, no edema. NEUROLOGICAL: Cranial nerves II through XII grossly intact. Normal speech, gait not observed. PSYCH: Normal mood, normal affect. SKIN: Warm, dry, normal turgor, no rashes or lesions noted CBCD WBC 14.2 K/mm3 (4.0-10.0) H 12/18/17 05:30 RBC 2.93 M/mm3 (4.00-5.60) L 12/18/17 05:30 Hgb 9.5 GM/dL (11.7-16.9) L 12/18/17 05:30 Hct 27.1 % (35.4-49) L D 12/18/17 05:30 MCV 92.3 fl (80-96) 12/18/17 05:30 MCHC 35.0 g/dl (32.0-35.9) 12/18/17 05:30 RDW 13.2 % (11.9-15.9) 12/18/17 05:30 Plt Count 179 K/MM3 (134-434) 12/18/17 05:30 MPV 7.6 fl (7.5-11.1) 12/18/17 05:30 CMP Sodium 140 mmol/L (136-145) 12/18/17 05:30 Potassium 4.1 mmol/L (3.5-5.1) 12/18/17 05:30 Chloride 107 mmol/L (98-107) 12/18/17 05:30 Carbon Dioxide 27 mmol/L (21-32) 12/18/17 05:30 Anion Gap 6 (8-16) L 12/18/17 05:30 BUN 20 mg/dL (7-18) H 12/18/17 05:30 Creatinine 0.8 mg/dL (0.7-1.3) 12/18/17 05:30 Creat Clearance w eGFR > 60 (>60) 12/18/17 05:30 Random Glucose 100 mg/dL (74-106) 12/18/17 05:30 Calcium 8.3 mg/dL (8.5-10.1) L 12/18/17 05:30 Total Bilirubin 0.7 mg/dL (0.2-1.0) 12/18/17 05:30 AST 59 U/L (15-37) H D 12/18/17 05:30 ALT 22 U/L (12-78) 12/18/17 05:30 Alkaline Phosphatase 82 U/L (45-117) D 12/18/17 05:30 Total Protein 5.6 g/dl (6.4-8.2) L 12/18/17 05:30 Albumin 2.6 g/dl (3.4-5.0) L 12/18/17 05:30 CARDIAC ENZYMES Creatine Kinase 442 IU/L (39-308) H 12/18/17 16:10 Troponin I 9.25 ng/ml (0.00-0.05) H* 12/18/17 16:10 Active Medications Generic Name Dose Route Start Last Admin Trade Name Freq PRN Reason Stop Dose Admin Acetaminophen 650 mg 12/18/17 14:44 Tylenol - PO Q4H PRN FEVER Albuterol/Ipratropium 1 amp 12/18/17 14:44 Duoneb - NEB Q4H PRN SHORTNESS OF BREATH Artificial Tears 1 drop 12/18/17 13:58 Artificial Tears OU TID PRN DRY EYES Aspirin 81 mg 12/18/17 22:00 Asa - PO HS [facility] Atorvastatin Calcium 80 mg 12/18/17 22:00 Lipitor - PO HS [facility] Docusate Sodium 100 mg 12/18/17 22:00 Colace - PO TID [facility] Enoxaparin Sodium 60 mg 12/18/17 20:00 Lovenox - SQ BID@0800,2000 [facility] Azithromycin 250 mg/ Dextrose 250 mls @ 250 mls/hr 12/19/17 10:00 IVPB DAILY [facility] Ceftriaxone Sodium 1 gm/ 50 mls @ 100 mls/hr 12/19/17 10:00 Dextrose IVPB DAILY [facility] Protocol Metoprolol Succinate 25 mg 12/19/17 10:00 Toprol Xl - PO DAILY [facility] Nicotine 7 mg 12/19/17 10:00 Nicoderm Patch - TD DAILY [facility] Paroxetine HCl 5 mg 12/18/17 22:00 Paxil - PO HS [facility] Ranitidine HCl 150 mg 12/18/17 22:00 Zantac - PO BID [facility] Ticagrelor 90 mg 12/18/17 22:00 Brilinta - PO BID [facility] Valsartan 40 mg 12/19/17 10:00 Diovan - PO DAILY [facility] Home Medications Medication Instructions Recorded Aspirin [ASA -] 81 mg PO HS 04/01/16 Paroxetine HCl [Paxil -] 20 mg PO HS 04/01/16 Acetaminophen [Tylenol .Regular 650 mg PO Q4H PRN tablet 12/09/17 Strength -] oxyCODONE HCL [Roxicodone -] 5 mg PO Q6H PRN #28 tablet MDD 4 12/09/17 ASSESSMENT/PLAN: Patient is a 77 y/o male, with a past medical history of depression, BPH, and a past surgical history of AAA repair. patient reports generalized weakness and malaise for the past week with productive cough. On December 10 2017 ,Patient was in the hospital for a left proximal humerus fracture # Multilobar Pneumonia (CAP) on IV antibiotic , Pulmonary on the case, On rocephin Zithromax # NSTEMI , Ekg consistent with posterior [place],Dr. Santos is on the case, elevated troponins on Lovenox, Brilinta continue, Aspirin, in Tele to be monitored, echo ordered, to evaluate the LV function . 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 invasive strategy (intervention is being deferred at this point considering patient is asymptomatic, with extensive pneumonia) DVT Px: Lovenox Visit type - Emergency Visit Emergency Visit: Yes ED Registration Date: 12/17/17 Care time: The patient presented to the Emergency Department on the above date and was hospitalized for further evaluation of their emergent condition. - New Patient This patient is new to me today: No - Critical Care Critical Care patient: No
[2017-12-18] MEDS: ENOXAPARIN NA (PORCINE) 60 MG/0.6 ML DISP.SYRIN SQ SCH (21:27)
[2017-12-18] MEDS: ASPIRIN 81 MG CHEWABLE TABLETS PO SCH (21:27)
[2017-12-18] MEDS: RANITIDINE HCL 150 MG TABLET (FP) PO SCH (21:27)
[2017-12-18] MEDS: TICAGRELOR 90 MG TABLET PO SCH (21:27)
[2017-12-18] MEDS: PARoxetine HCL 10 MG TABLET (FP) PO SCH (21:27)
[2017-12-18] MEDS: ACETAMINOPHEN 325 MG TABLET (FP) PO PRN (21:28)
[2017-12-18] MEDS: ATORVASTATIN CA 80 MG TABLET (FP) PO SCH (21:28)
[2017-12-18] MEDS ORDERED: ATORVASTATIN CA 80 MG TABLET (FP) PO SCH (22:00)
[2017-12-18] MEDS ORDERED: ASPIRIN 81 MG CHEWABLE TABLETS PO SCH ×2 (22:00)
[2017-12-18] MEDS ORDERED: PARoxetine HCL 10 MG TABLET (FP) PO SCH (22:00)
[2017-12-18] MEDS ORDERED: PARoxetine HCL 20 MG TABLET (FP) PO SCH (22:00)
[2017-12-19] MEDS: DOCUSATE SODIUM 100 MG CAPSULE (FP) PO SCH ×3 (05:49→21:18)
[2017-12-19 07:15] LABS: ANION GAP 6 (8-16); BLOOD UREA NITROGEN 17 mg/dL (7-18); CALCIUM 8.4 mg/dL (8.5-10.1); CHLORIDE 106 mmol/L (98-107); CO2 28 mmol/L (21-32); GLUCOSE,RANDOM 115 mg/dL (74-106); POTASSIUM 4.1 mmol/L (3.5-5.1); SODIUM 140 mmol/L (136-145)
[2017-12-19 07:18] LABS: BASO % 0.3 % (0-2.0); EOS % 4.5 % (0-4.5); HEMATOCRIT 29.1 % (35.4-49); LYMPH % 11.5 % (8-40); MCH 32.2 pg (25.7-33.7); MCHC 34.3 g/dl (32.0-35.9); MEAN CELL VOLUME 93.8 fl (80-96); MEAN PLT VOLUME 7.9 fl (7.5-11.1); MONO % 9.2 % (3.8-10.2); NEUT % 74.5 % (42.8-82.8); PLATELET COUNT 211 K/MM3 (134-434); RDW 13.2 % (11.9-15.9); WHITE BLOOD COUNT 11.8 K/mm3 (4.0-10.0)
--- NOTE | 2017-12-19 08:54 | PN ---
Physical Exam: SUBJECTIVE: Patient seen and examined at bedside. No cute events overnight. Denies chest pain, sob, fever/chills, headache/dizziness. OBJECTIVE: Vital Signs Period Temp Pulse Resp BP Sys/Verde Pulse Ox Last 24 Hr 97 F-98.4 F 80-88 18-23 99-144/59-78 99 GENERAL: AAOx3. NAD. Resting comfortably. HEAD: Normal with no signs of trauma. EYES: Pupils equal, round and reactive to light, extraocular movements intact, sclera anicteric, conjunctiva clear. No lid lag. EARS, NOSE, THROAT: Ears normal, nares patent, oropharynx clear without exudates. Moist mucous membranes. NECK: Normal range of motion, supple without lymphadenopathy, JVD, or masses. LUNGS: Breath sounds equal, crackles to bilateral bases, clear to apexes. No wheezes. No accessory muscle use. HEART: Regular rate and rhythm, normal S1 and S2 without murmur, rub or gallop. ABDOMEN: Soft, nontender, not distended, normoactive bowel sounds, no guarding, no rebound, no masses. No hepatomegaly or splenomegaly. MUSCULOSKELETAL: Normal range of motion at all joints. No bony deformities or tenderness. No CVA tenderness. UPPER EXTREMITIES: Ecchymosis noted to the left proximal humerus. No deformity noted. Sling in place, 2+ pulses, warm, well-perfused. No cyanosis. No clubbing. No peripheral edema. LOWER EXTREMITIES: 2+ pulses, warm, well-perfused. No calf tenderness. No peripheral edema. NEUROLOGICAL: Cranial nerves II-XII intact. Normal speech. Normal gait. PSYCHIATRIC: Cooperative. Good eye contact. Appropriate mood and affect. SKIN: Warm, dry, normal turgor, no rashes or lesions noted, normal capillary refill. Laboratory Results - last 24 hr 12/18/17 12/18/17 12/18/17 05:30 09:06 16:10 WBC RBC Hgb Hct MCV MCH MCHC RDW Plt Count MPV Absolute Neuts (auto) Neutrophils % Lymphocytes % Monocytes % Eosinophils % Basophils % Nucleated RBC % Sodium Potassium Chloride Carbon Dioxide Anion Gap BUN Creatinine Creat Clearance w eGFR Random Glucose Calcium Creatine Kinase 442 H Creatine Kinase Index 6.7 H* CK-MB (CK-2) 29.79 H Troponin I 7.43 H* 9.25 H* Triglycerides 43 D Cancelled Cholesterol 105 D Cancelled Total LDL Cholesterol 54 D Cancelled HDL Cholesterol 46 Cancelled 12/19/17 12/19/17 06:05 06:05 WBC 11.8 H RBC 3.10 L Hgb 10.0 L Hct 29.1 L MCV 93.8 MCH 32.2 MCHC 34.3 RDW 13.2 Plt Count 211 MPV 7.9 Absolute Neuts (auto) 8.8 Neutrophils % 74.5 Lymphocytes % 11.5 Monocytes % 9.2 Eosinophils % 4.5 D Basophils % 0.3 Nucleated RBC % 0 Sodium 140 Potassium 4.1 Chloride 106 Carbon Dioxide 28 Anion Gap 6 L BUN 17 Creatinine 1.0 Creat Clearance w eGFR > 60 Random Glucose 115 H Calcium 8.4 L Creatine Kinase Creatine Kinase Index CK-MB (CK-2) Troponin I 7.60 H* Triglycerides Cholesterol Total LDL Cholesterol HDL Cholesterol Active Medications Generic Name Dose Route Start Last Admin Trade Name Freq PRN Reason Stop Dose Admin Acetaminophen 650 mg 12/18/17 14:44 12/18/17 21:28 Tylenol - PO 650 mg Q4H PRN Administration FEVER Albuterol/Ipratropium 1 amp 12/18/17 14:44 Duoneb - NEB Q4H PRN SHORTNESS OF BREATH Artificial Tears 1 drop 12/18/17 13:58 Artificial Tears OU TID PRN DRY EYES Aspirin 81 mg 12/18/17 22:00 12/18/17 21:27 Asa - PO 81 mg HS [facility] Administration Atorvastatin Calcium 80 mg 12/18/17 22:00 12/18/17 21:28 Lipitor - PO 80 mg HS [facility] Administration Docusate Sodium 100 mg 12/18/17 22:00 12/19/17 05:49 Colace - PO Not Given TID [facility] Enoxaparin Sodium 60 mg 12/18/17 20:00 12/18/17 21:27 Lovenox - SQ 60 mg BID@0800,2000 [facility] Administration Azithromycin 250 mg/ Dextrose 250 mls @ 250 mls/hr 12/19/17 10:00 IVPB DAILY [facility] Ceftriaxone Sodium 1 gm/ 50 mls @ 100 mls/hr 12/19/17 10:00 Dextrose IVPB DAILY [facility] Protocol Metoprolol Succinate 25 mg 12/19/17 10:00 Toprol Xl - PO DAILY [facility] Nicotine 7 mg 12/19/17 10:00 Nicoderm Patch - TD DAILY [facility] Paroxetine HCl 5 mg 12/18/17 22:00 12/18/17 21:27 Paxil - PO 5 mg HS [facility] Administration Ranitidine HCl 150 mg 12/18/17 22:00 12/18/17 21:27 Zantac - PO 150 mg BID [facility] Administration Ticagrelor 90 mg 12/18/17 22:00 12/18/17 21:27 Brilinta - PO 90 mg BID [facility] Administration Valsartan 40 mg 12/19/17 10:00 Diovan - PO DAILY [facility]: CXR: Right infiltrate. Old left rib trauma. Recent proximal left humeral trauma. Prominent mediastinum. CT chest: pending ECG: NORMAL SINUS RHYTHM. POSTERIOR INFARCT , POSSIBLY ACUTE ASSESSMENT/PLAN: 77M w/PMH of AAA repair (2012), BPH, depression presented to [place] ER with cough and generalized weakness and was found to have pneumonia. Found to have concurrent NSTEMI. #NSTEMI; Initial ECG showed new posterior infarct. Pt stable and asymptomatic today. Trops peaked yesterday at 9.25, today 7.60. -cont Aspirin 81 mg PO HS -cont Ticagrelor 90 mg PO BID -cont Atorvastatin 80 mg PO HS -cont Tylenol 650 mg PO Q4H for pain -cont Lovenox 60 mg SQ BID -cont Toprol XL 25 mg PO QD -cont Valsartan 40 mg PO QD -Per cardio (Dr. Hamilton): cont to monitor CBC/Hgb as pt is taking Aspirin, Ticragrelor and Lovenox. Pending clinical course will plan either conservative strategy/MPI study and deciding future intervention vs. invasive strategy ( intervention is being deferred at this point considering patient is asymptomatic , with extensive pneumonia) -ECHO in AM, f/u results for possible LV/RV or valvular dysfxn -O2 supplementation to keep O2 saturation >90% #CAP. Pt stable, denies sob or cough. -cont Ceftriaxone 50cc @ 100cc/hr -cont Azithromycin 250cc @ 250cc/hr -O2 supplementation to keep O2 saturation >90% -Monitor CXR in AM -urine cx (-) -blood cx (-) x48hrs -Urine Ag presumptive (-) for Legionella/Pneumococcal #Nicotine dependance -Nicotine patch 7 mg TD QD #Depression -cont Paxil 5 mg PO HS #DVT ppx -cont Lovenox 60 mg SQ BID #FEN -No fluids -Monitor electrolytes -Low fat/cholesterol diet Dispo -cont to monitor on tele Visit type - Emergency Visit Emergency Visit: Yes ED Registration Date: 12/17/17 Care time: The patient presented to the Emergency Department on the above date and was hospitalized for further evaluation of their emergent condition. - New Patient This patient is new to me today: Yes Date on this admission: 12/19/17 - Critical Care Critical Care patient: No
--- NOTE | 2017-12-19 08:58 | EKG ---
Test Reason : Blood Pressure : / mmHG Vent. Rate : 100 BPM Atrial Rate : 100 BPM P-R Int : 194 ms QRS Dur : 084 ms QT Int : 338 ms P-R-T Axes : 041 006 013 degrees QTc Int : 436 ms NORMAL SINUS RHYTHM POSTERIOR INFARCT , POSSIBLY ACUTE ACUTE [place] / STEMI ABNORMAL ECG WHEN COMPARED WITH ECG OF 17-DEC-2017 10:28, NO SIGNIFICANT CHANGE WAS FOUND Confirmed by ARIANA CALERO, INGA ([id number]) on 12/19/2017 8:58:43 AM Referred By: ANGELA IVEY Confirmed By:INGA LANE MD
[2017-12-19] MEDS ORDERED: cefTRIAXone SODIUM 1 GM VIAL ONE (10:02)
[2017-12-19] MEDS ORDERED: DEXTROSE 5%-WATER - 50 ML IVPB ONE (10:02)
[2017-12-19] MEDS: ENOXAPARIN NA (PORCINE) 60 MG/0.6 ML DISP.SYRIN SQ SCH ×2 (10:13→21:17)
[2017-12-19] MEDS: CEFTRIAXONE 1 GM in DEXTROSE 5%-WATER - 50 ML IVPB SCH (10:14)
[2017-12-19] MEDS: RANITIDINE HCL 150 MG TABLET (FP) PO SCH ×2 (10:15→21:18)
[2017-12-19] MEDS: VALSARTAN 40 MG TABLET (FP) PO SCH (10:15)
[2017-12-19] MEDS: AZITHROMYCIN IVPB 250 MG in DEXTROSE 5%-WATER - 250 ML IVPB SCH (10:15)
[2017-12-19] MEDS: metoPROLOL SUCCINATE 25 MG TAB.SR.24H (FP) PO SCH (10:15)
[2017-12-19] MEDS: NICOTINE 7 MG/24 HOURS TOPICAL PATCH TD SCH (10:16)
[2017-12-19] MEDS: TICAGRELOR 90 MG TABLET PO SCH ×2 (10:16→21:18)
--- NOTE | 2017-12-19 10:20 | PN ---
Progress Note (short form) - Note Progress Note: Chief Complaint: Events noted, notes reviewed, denies any chest pain or dyspnea , reports persistence left arm discomfort at the fracture site History of Present Illness: Seen and examined on telemetry. Events noted, notes reviewed, denies any chest pain or dyspnea, reports persistence left arm discomfort at the fracture site CPK and Troponin I noted Plan to proceed with echocardiography in AM and eventually plan further evaluation including MPI study vs. invasive strategy - Current Medication List Current Medications: Current Medications Acetaminophen (Tylenol -) 650 mg PO Q4H PRN PRN Reason: FEVER Last Admin: 12/18/17 21:28 Dose: 650 mg Albuterol/Ipratropium (Duoneb -) 1 amp NEB Q4H PRN PRN Reason: SHORTNESS OF BREATH Artificial Tears (Artificial Tears) 1 drop OU TID PRN PRN Reason: DRY EYES Aspirin (Asa -) 81 mg PO [facility] Last Admin: 12/18/17 21:27 Dose: 81 mg Atorvastatin Calcium (Lipitor -) 80 mg PO [facility] Last Admin: 12/18/17 21:28 Dose: 80 mg Docusate Sodium (Colace -) 100 mg PO TID [facility] Last Admin: 12/19/17 05:49 Dose: Not Given Enoxaparin Sodium (Lovenox -) 60 mg SQ BID@0800,2000 [facility] Last Admin: 12/19/17 10:13 Dose: 60 mg Azithromycin 250 mg/ Dextrose 250 mls @ 250 mls/hr IVPB DAILY [facility] Last Admin: 12/19/17 10:15 Dose: 250 mls/hr Ceftriaxone Sodium 1 gm/ (Dextrose) 50 mls @ 100 mls/hr IVPB DAILY [facility]; Protocol Last Admin: 12/19/17 10:14 Dose: 100 mls/hr Metoprolol Succinate (Toprol Xl -) 25 mg PO DAILY [facility] Last Admin: 12/19/17 10:15 Dose: 25 mg Nicotine (Nicoderm Patch -) 7 mg TD DAILY [facility] Last Admin: 12/19/17 10:16 Dose: 7 mg Paroxetine HCl (Paxil -) 5 mg PO HS [facility] Last Admin: 12/18/17 21:27 Dose: 5 mg Ranitidine HCl (Zantac -) 150 mg PO BID [facility] Last Admin: 12/19/17 10:15 Dose: 150 mg Ticagrelor (Brilinta -) 90 mg PO BID [facility] Last Admin: 12/19/17 10:16 Dose: 90 mg Valsartan (Diovan -) 40 mg PO DAILY [facility] Last Admin: 12/19/17 10:15 Dose: 40 mg Review of Systems - Review of Systems Cardiovascular: As noted above Respiratory: denies: Hemoptysis, Orthopnea, PND or Cough Gastrointestinal: denies: Abdominal Pain, Constipation, Diarrhea, Melena, Nausea , Vomiting, Rectal Bleeding Genitourinary: denies: Dysuria, Hematuria Musculoskeletal: No symptoms reported Neurological: denies: Dizziness, Headache, Seizure Endocrine: denies: Excessive Sweating - Objective Vital Signs: Last Vital Signs Temp Pulse Resp BP Pulse Ox 98.4 F 86 20 109/63 99 12/19/17 06:00 12/19/17 06:00 12/19/17 06:00 12/19/17 06:00 12/18/17 21:00 Intake & Output 12/16/17 12/17/17 12/18/17 12/19/17 23:59 23:59 23:59 23:59 Intake Total 1330 Output Total 660 600 Balance 670 -600 Weight 132 lb 4.438 oz Neck: Supple Negative JVD No Bruit Cardiovascular: S1 S2 Regular Rate and Rhythm No Murmurs noted Respiratory: Clear to A&P Gastrointestinal: Soft Benign Normal Bowel Sounds Ext: No Edema Intact Distal Pulses Labs: Troponin, BNP 12/18/17 12/19/17 16:10 06:05 Troponin I 9.25 H* 7.60 H* CBC, BMP 12/19/17 06:05 12/19/17 06:05 Hepatic Panel Total Bilirubin 0.7 mg/dL (0.2-1.0) 12/18/17 05:30 AST 59 U/L (15-37) H D 12/18/17 05:30 ALT 22 U/L (12-78) 12/18/17 05:30 Alkaline Phosphatase 82 U/L (45-117) D 12/18/17 05:30 Albumin 2.6 g/dl (3.4-5.0) L 12/18/17 05:30 INR, PTT INR 1.32 (0.83-1.09) H 12/18/17 05:30 Assessment/Plan ASSESSMENT: 1. CAD post NSTEMI/posterior infarct angina pectoris, continue medical management considering current co-morbidities 2. 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 Pneumonia, probable community acquired 4. Hypercholesterolemia 5. History of abdominal aortic aneurysm post EVAR 6. Recent fall fracture Humerus for conservative management 7. Anemia 8. Pre-renal azotemia, resolved PLAN: 1. Continue Toprol XL hemodynamics permitting 2. Continue Diovan hemodynamics permitting 3. Continue Lipitor 4. Continue ASA, Brilinta and Lovenox, with caution and close monitoring of CBC/ Hg, Lovenox to be D/C in AM 5. Antibiotics as per the primary team 6. Echocardiography for evaluation of LV size and function and valvular function 7. Pending clinical course and results of echocardiography will plan either conservative strategy/MPI study and deciding future intervention vs. invasive strategy (intervention is being deferred at this point considering patient is asymptomatic, with extensive pneumonia) Mc Hamilton MD
--- NOTE | 2017-12-19 12:43 | PN ---
Teaching Attending Note Name of Resident: Bailee Zhou ATTENDING PHYSICIAN STATEMENT I saw and evaluated the patient. I reviewed the resident's note and discussed the case with the resident. I agree with the resident's findings and plan as documented. SUBJECTIVE: Patient is comfortable with no acute changes. No fever or chills, no shortness of breath. OBJECTIVE: Vital Signs Temperature 98.2 F 12/19/17 10:00 Pulse Rate 76 12/19/17 10:00 Respiratory Rate 20 12/19/17 10:00 Blood Pressure 112/59 12/19/17 10:00 O2 Sat by Pulse Oximetry (%) 99 12/19/17 10:00 CBCD WBC 11.8 K/mm3 (4.0-10.0) H 12/19/17 06:05 RBC 3.10 M/mm3 (4.00-5.60) L 12/19/17 06:05 Hgb 10.0 GM/dL (11.7-16.9) L 12/19/17 06:05 Hct 29.1 % (35.4-49) L 12/19/17 06:05 MCV 93.8 fl (80-96) 12/19/17 06:05 MCHC 34.3 g/dl (32.0-35.9) 12/19/17 06:05 RDW 13.2 % (11.9-15.9) 12/19/17 06:05 Plt Count 211 K/MM3 (134-434) 12/19/17 06:05 MPV 7.9 fl (7.5-11.1) 12/19/17 06:05 CMP Sodium 140 mmol/L (136-145) 12/19/17 06:05 Potassium 4.1 mmol/L (3.5-5.1) 12/19/17 06:05 Chloride 106 mmol/L (98-107) 12/19/17 06:05 Carbon Dioxide 28 mmol/L (21-32) 12/19/17 06:05 Anion Gap 6 (8-16) L 12/19/17 06:05 BUN 17 mg/dL (7-18) 12/19/17 06:05 Creatinine 1.0 mg/dL (0.7-1.3) 12/19/17 06:05 Creat Clearance w eGFR > 60 (>60) 12/19/17 06:05 Random Glucose 115 mg/dL (74-106) H 12/19/17 06:05 Calcium 8.4 mg/dL (8.5-10.1) L 12/19/17 06:05 Total Bilirubin 0.7 mg/dL (0.2-1.0) 12/18/17 05:30 AST 59 U/L (15-37) H D 12/18/17 05:30 ALT 22 U/L (12-78) 12/18/17 05:30 Alkaline Phosphatase 82 U/L (45-117) D 12/18/17 05:30 Total Protein 5.6 g/dl (6.4-8.2) L 12/18/17 05:30 Albumin 2.6 g/dl (3.4-5.0) L 12/18/17 05:30 CARDIAC ENZYMES Creatine Kinase 442 IU/L (39-308) H 12/18/17 16:10 Troponin I 7.60 ng/ml (0.00-0.05) H* 12/19/17 06:05 Current Medications Generic Name Dose Route Start Last Admin Trade Name Freq PRN Reason Stop Dose Admin Acetaminophen 650 mg 12/18/17 14:44 12/18/17 21:28 Tylenol - PO 650 mg Q4H PRN Administration FEVER Albuterol/Ipratropium 1 amp 12/18/17 14:44 Duoneb - NEB Q4H PRN SHORTNESS OF BREATH Artificial Tears 1 drop 12/18/17 13:58 Artificial Tears OU TID PRN DRY EYES Aspirin 81 mg 12/18/17 22:00 12/18/17 21:27 Asa - PO 81 mg HS [facility] Administration Atorvastatin Calcium 80 mg 12/18/17 22:00 12/18/17 21:28 Lipitor - PO 80 mg HS [facility] Administration Docusate Sodium 100 mg 12/18/17 22:00 12/19/17 05:49 Colace - PO Not Given TID [facility] Enoxaparin Sodium 60 mg 12/18/17 20:00 12/19/17 10:13 Lovenox - SQ 60 mg BID@0800,2000 [facility] Administration Azithromycin 250 mg/ Dextrose 250 mls @ 250 mls/hr 12/19/17 10:00 12/19/17 10 :15 IVPB 250 mls/hr DAILY [facility] Administration Ceftriaxone Sodium 1 gm/ 50 mls @ 100 mls/hr 12/19/17 10:00 12/19/17 10:14 Dextrose IVPB 100 mls/hr DAILY [facility] Administration Protocol Metoprolol Succinate 25 mg 12/19/17 10:00 12/19/17 10:15 Toprol Xl - PO 25 mg DAILY [facility] Administration Nicotine 7 mg 12/19/17 10:00 12/19/17 10:16 Nicoderm Patch - TD 7 mg DAILY [facility] Administration Paroxetine HCl 5 mg 12/18/17 22:00 12/18/17 21:27 Paxil - PO 5 mg HS [facility] Administration Ranitidine HCl 150 mg 12/18/17 22:00 12/19/17 10:15 Zantac - PO 150 mg BID [facility] Administration Ticagrelor 90 mg 12/18/17 22:00 12/19/17 10:16 Brilinta - PO 90 mg BID [facility] Administration Valsartan 40 mg 12/19/17 10:00 12/19/17 10:15 Diovan - PO 40 mg DAILY [facility] Administration Home Medications Medication Instructions Recorded Aspirin [ASA -] 81 mg PO HS 04/01/16 Paroxetine HCl [Paxil -] 20 mg PO HS 04/01/16 Acetaminophen [Tylenol .Regular 650 mg PO Q4H PRN tablet 12/09/17 Strength -] oxyCODONE HCL [Roxicodone -] 5 mg PO Q6H PRN #28 tablet MDD 4 12/09/17 ASSESSMENT AND PLAN: Patient is a 77 y/o male, with a past medical history of depression, BPH, and a past surgical history of AAA repair. patient reports generalized weakness and malaise for the past week with productive cough. On December 10 2017 ,Patient was in the hospital for a left proximal humerus fracture # Multilobar Pneumonia (CAP) on IV antibiotic , Pulmonary on the case, On rocephin Zithromax # NSTEMI , Ekg consistent with posterior [place],Dr. Santos is on the case, elevated troponins on Lovenox, Brilinta continue, Aspirin, in Tele to be monitored, echo ordered, and pending to evaluate the LV function . on aci/BB/ lipitor 80/ # Acute Systolic/diastolic LV dysfunction with class 0 NYHA classification LV failure # Hypercholesterolemia on Lipitor # History of abdominal aortic aneurysm post EVAR (2012) # Recent fall fracture Humerus for conservative management # Anemia # Hx of BPH # Hx of Depression on Paxil #Constipation on colace 3x per day # Hx of smoking on Nicoderm patch As per Danielle conditioning room worker : plan either conservative strategy/MPI study and deciding future intervention vs. invasive strategy (intervention is being deferred at this point considering patient is asymptomatic, with extensive pneumonia)
--- NOTE | 2017-12-19 13:05 | PN ---
Progress Note (short form) - Note Progress Note: PULMONARY Denies shortness of breath or chest pain. No fevers or chills. Vital Signs Period Temp Pulse Resp BP Sys/Verde Pulse Ox Last 24 Hr 97 F-98.4 F 76-88 18-23 102-144/59-78 99-99 Gen: NAD at rest Heart: RRR Lung: decreased breath sounds at the bases, scattered rales Abd: soft, nontender Ext: no edema CBC, BMP 12/19/17 06:05 12/19/17 06:05 Active Medications Acetaminophen (Tylenol -) 650 mg PO Q4H PRN PRN Reason: FEVER Last Admin: 12/18/17 21:28 Dose: 650 mg Albuterol/Ipratropium (Duoneb -) 1 amp NEB Q4H PRN PRN Reason: SHORTNESS OF BREATH Artificial Tears (Artificial Tears) 1 drop OU TID PRN PRN Reason: DRY EYES Aspirin (Asa -) 81 mg PO [facility] Last Admin: 12/18/17 21:27 Dose: 81 mg Atorvastatin Calcium (Lipitor -) 80 mg PO HS [facility] Last Admin: 12/18/17 21:28 Dose: 80 mg Docusate Sodium (Colace -) 100 mg PO TID [facility] Last Admin: 12/19/17 05:49 Dose: Not Given Enoxaparin Sodium (Lovenox -) 60 mg SQ BID@0800,2000 [facility] Last Admin: 12/19/17 10:13 Dose: 60 mg Azithromycin 250 mg/ Dextrose 250 mls @ 250 mls/hr IVPB DAILY [facility] Last Admin: 12/19/17 10:15 Dose: 250 mls/hr Ceftriaxone Sodium 1 gm/ (Dextrose) 50 mls @ 100 mls/hr IVPB DAILY [facility]; Protocol Last Admin: 12/19/17 10:14 Dose: 100 mls/hr Metoprolol Succinate (Toprol Xl -) 25 mg PO DAILY [facility] Last Admin: 12/19/17 10:15 Dose: 25 mg Nicotine (Nicoderm Patch -) 7 mg TD DAILY [facility] Last Admin: 12/19/17 10:16 Dose: 7 mg Paroxetine HCl (Paxil -) 5 mg PO HS [facility] Last Admin: 12/18/17 21:27 Dose: 5 mg Ranitidine HCl (Zantac -) 150 mg PO BID [facility] Last Admin: 12/19/17 10:15 Dose: 150 mg Ticagrelor (Brilinta -) 90 mg PO BID [facility] Last Admin: 12/19/17 10:16 Dose: 90 mg Valsartan (Diovan -) 40 mg PO DAILY [facility] Last Admin: 12/19/17 10:15 Dose: 40 mg A/P Pneumonia Acute NSTEMI LV Systolic/Diastolic Dysfunction Hypercholesterolemia h/o AAA s/p EVAR Recent Left Humerus fracture - continue antibiotics - ASA, brilinta - continue anticoagulation per cardiology - beta oskar, statin - O2 to keep Spo2 >90% - echocardiogram - will likely need stress testing
--- NOTE | 2017-12-19 19:51 | EKG ---
Test Reason : Blood Pressure : / mmHG Vent. Rate : 080 BPM Atrial Rate : 080 BPM P-R Int : 202 ms QRS Dur : 090 ms QT Int : 382 ms P-R-T Axes : 002 008 040 degrees QTc Int : 440 ms NORMAL SINUS RHYTHM NONSPECIFIC ST AND T WAVE ABNORMALITY ABNORMAL ECG WHEN COMPARED WITH ECG OF 17-DEC-2017 23:31, T WAVE INVERSION NOW EVIDENT IN ANTERIOR LEADS Confirmed by ARIANA CALERO, INGA ([id number]) on 12/19/2017 7:51:40 PM Referred By: Confirmed By:INGA LANE MD
[2017-12-19] MEDS ORDERED: diphenhydrAMINE HCL 25 MG CAPSULE (FP) PO ONE (20:45)
[2017-12-19] MEDS: PARoxetine HCL 10 MG TABLET (FP) PO SCH (21:18)
[2017-12-19] MEDS: ACETAMINOPHEN 325 MG TABLET (FP) PO PRN (21:18)
[2017-12-19] MEDS: ATORVASTATIN CA 80 MG TABLET (FP) PO SCH (21:18)
[2017-12-19] MEDS: ASPIRIN 81 MG CHEWABLE TABLETS PO SCH (21:18)
[2017-12-20] MEDS: DOCUSATE SODIUM 100 MG CAPSULE (FP) PO SCH ×3 (05:37→21:36)
[2017-12-20] MEDS: ALBUTEROL SO4 2.5/IPRATROPIUM 0.5 INH SOL 3 ML VIAL.NEB. NEB PRN (07:31)
[2017-12-20 08:20] LABS: HEMATOCRIT 32.5 % (35.4-49); MCH 31.7 pg (25.7-33.7); MCHC 33.9 g/dl (32.0-35.9); MEAN CELL VOLUME 93.7 fl (80-96); MEAN PLT VOLUME 8.2 fl (7.5-11.1); PLATELET COUNT 246 K/MM3 (134-434); RBC 3.47 M/mm3 (4.00-5.60); RDW 13.3 % (11.9-15.9); WHITE BLOOD COUNT 12.5 K/mm3 (4.0-10.0)
[2017-12-20 09:04] LABS: ANION GAP 7 (8-16); BLOOD UREA NITROGEN 15 mg/dL (7-18); CALCIUM 9.1 mg/dL (8.5-10.1); CHLORIDE 103 mmol/L (98-107); CO2 29 mmol/L (21-32); CREATININE 0.9 mg/dL (0.7-1.3); GLUCOSE,RANDOM 105 mg/dL (74-106); POTASSIUM 4.9 mmol/L (3.5-5.1); SODIUM 139 mmol/L (136-145)
[2017-12-20] MEDS ORDERED: DEXTROSE 5%-WATER - 50 ML IVPB ONE (09:23)
[2017-12-20] MEDS ORDERED: cefTRIAXone SODIUM 1 GM VIAL ONE (09:23)
[2017-12-20] MEDS: AZITHROMYCIN IVPB 250 MG in DEXTROSE 5%-WATER - 250 ML IVPB SCH (09:29)
[2017-12-20] MEDS: CEFTRIAXONE 1 GM in DEXTROSE 5%-WATER - 50 ML IVPB SCH (09:29)
[2017-12-20] MEDS: RANITIDINE HCL 150 MG TABLET (FP) PO SCH ×2 (09:30→21:37)
[2017-12-20] MEDS: VALSARTAN 40 MG TABLET (FP) PO SCH (09:30)
[2017-12-20] MEDS: metoPROLOL SUCCINATE 25 MG TAB.SR.24H (FP) PO SCH (09:30)
[2017-12-20] MEDS: ACETAMINOPHEN 325 MG TABLET (FP) PO PRN (09:30)
[2017-12-20] MEDS: TICAGRELOR 90 MG TABLET PO SCH ×2 (09:31→21:37)
[2017-12-20] MEDS: NICOTINE 7 MG/24 HOURS TOPICAL PATCH TD SCH (09:31)
[2017-12-20] MEDS: ENOXAPARIN NA (PORCINE) 60 MG/0.6 ML DISP.SYRIN SQ SCH (09:32)
--- NOTE | 2017-12-20 10:39 | PN ---
Progress Note, Physician History of Present Illness: Patient denies any chest pain or dyspnea, reports persistence left arm discomfort at the fracture site. - Current Medication List Current Medications: Active Medications Acetaminophen (Tylenol -) 650 mg PO Q4H PRN PRN Reason: FEVER Last Admin: 12/20/17 09:30 Dose: 650 mg Albuterol/Ipratropium (Duoneb -) 1 amp NEB Q4H PRN PRN Reason: SHORTNESS OF BREATH Last Admin: 12/20/17 07:31 Dose: 1 amp Artificial Tears (Artificial Tears) 1 drop OU TID PRN PRN Reason: DRY EYES Aspirin (Asa -) 81 mg PO [facility] Last Admin: 12/19/17 21:18 Dose: 81 mg Atorvastatin Calcium (Lipitor -) 80 mg PO HS [facility] Last Admin: 12/19/17 21:18 Dose: 80 mg Docusate Sodium (Colace -) 100 mg PO TID [facility] Last Admin: 12/20/17 05:37 Dose: Not Given Enoxaparin Sodium (Lovenox -) 60 mg SQ BID@0800,2000 [facility] Last Admin: 12/20/17 09:32 Dose: 60 mg Azithromycin 250 mg/ Dextrose 250 mls @ 250 mls/hr IVPB DAILY [facility] Last Admin: 12/20/17 09:29 Dose: 250 mls/hr Ceftriaxone Sodium 1 gm/ (Dextrose) 50 mls @ 100 mls/hr IVPB DAILY [facility]; Protocol Last Admin: 12/20/17 09:29 Dose: 100 mls/hr Metoprolol Succinate (Toprol Xl -) 25 mg PO DAILY [facility] Last Admin: 12/20/17 09:30 Dose: 25 mg Nicotine (Nicoderm Patch -) 7 mg TD DAILY [facility] Last Admin: 12/20/17 09:31 Dose: 7 mg Paroxetine HCl (Paxil -) 5 mg PO [facility] Last Admin: 12/19/17 21:18 Dose: 5 mg Ranitidine HCl (Zantac -) 150 mg PO BID [facility] Last Admin: 12/20/17 09:30 Dose: 150 mg Ticagrelor (Brilinta -) 90 mg PO BID [facility] Last Admin: 12/20/17 09:31 Dose: 90 mg Valsartan (Diovan -) 40 mg PO DAILY [facility] Last Admin: 12/20/17 09:30 Dose: 40 mg - Objective Vital Signs: Vital Signs Temperature 98.9 F 12/20/17 06:00 Pulse Rate 87 12/20/17 06:00 Respiratory Rate 20 12/20/17 06:00 Blood Pressure 129/77 12/20/17 06:00 O2 Sat by Pulse Oximetry (%) 98 12/19/17 21:00 Constitutional: Yes: No Distress, Calm Neck: Yes: Supple Cardiovascular: Yes: Regular Rate and Rhythm Respiratory: Yes: Regular, CTA Bilaterally, On Nasal O2 Gastrointestinal: Yes: Normal Bowel Sounds, Soft Edema: No Labs: CBC, BMP 12/20/17 06:25 12/20/17 06:25 INR, PTT INR 1.32 (0.83-1.09) H 12/18/17 05:30 - ....Imaging EKG: Report Reviewed (NSR nonspec ST-T changes) Problem List - Problems (1) NSTEMI (non-ST elevated myocardial infarction) Code(s): I21.4 - NON-ST ELEVATION (NSTEMI) MYOCARDIAL INFARCTION (2) Closed fracture of left proximal humerus Code(s): S42.A - UNSP FRACTURE OF UPPER END OF LEFT HUMERUS, INIT FOR CLOS FX Qualifiers: Encounter type: initial encounter Fracture morphology: unspecified fracture morphology Qualified Code(s): S42.202A - Unspecified fracture of upper end of left humerus, initial encounter for closed fracture (3) Pneumonia Code(s): J18.9 - PNEUMONIA, UNSPECIFIED ORGANISM Qualifiers: Pneumonia type: due to unspecified organism Laterality: right Lung location: unspecified part of lung Qualified Code(s): J18.9 - Pneumonia, unspecified organism (4) Diastolic dysfunction Code(s): I51.9 - HEART DISEASE, UNSPECIFIED (5) History of endovascular stent graft for abdominal aortic aneurysm Code(s): Z95.828 - PRESENCE OF OTHER VASCULAR IMPLANTS AND GRAFTS Assessment/Plan 1. CAD post NSTEMI/posterior infarct angina pectoris, continue medical management considering current co-morbidities 2. 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 Pneumonia, probable community acquired 4. Hypercholesterolemia 5. History of abdominal aortic aneurysm post EVAR 6. Recent fall with left humerus fracture for conservative management 7. Anemia 8. Pre-renal azotemia, resolved PLAN: 1. Continue Toprol XL 25 qd hemodynamics permitting 2. Continue Diovan 40 qd hemodynamics permitting 3. Continue Lipitor 80 qhs 4. Continue ASA 81 qd, Brilinta 90 bid and change Lovenox to DVT dosing, with caution and close monitoring of CBC/Hg, trops have peaked 5. Empiric antibiotics as per the primary team, BD, O2 to keep Spo2 >90% 6. Echocardiography for evaluation of LV size and function and valvular function 7. Pending clinical course and results of echocardiography will plan either conservative strategy/MPI study and deciding future intervention vs. invasive strategy (intervention is being deferred at this point considering patient is asymptomatic, with extensive pneumonia)
--- NOTE | 2017-12-20 11:22 | PN ---
Progress Note (short form) - Note Progress Note: Denies shortness of breath or chest pain. Some discomfort at fracture site. No fevers or chills. Intake & Output 12/17/17 12/18/17 12/19/17 12/20/17 23:59 23:59 23:59 23:59 Intake Total 1330 10 Output Total 660 600 Balance 670 -590 Weight 132 lb 4.438 oz Last Vital Signs Temp Pulse Resp BP Pulse Ox 98.9 F 87 20 129/77 98 12/20/17 06:00 12/20/17 06:00 12/20/17 06:00 12/20/17 06:00 12/19/17 21:00 Active Medications Acetaminophen (Tylenol -) 650 mg PO Q4H PRN PRN Reason: FEVER Last Admin: 12/20/17 09:30 Dose: 650 mg Albuterol/Ipratropium (Duoneb -) 1 amp NEB Q4H PRN PRN Reason: SHORTNESS OF BREATH Last Admin: 12/20/17 07:31 Dose: 1 amp Artificial Tears (Artificial Tears) 1 drop OU TID PRN PRN Reason: DRY EYES Aspirin (Asa -) 81 mg PO HS [facility] Last Admin: 12/19/17 21:18 Dose: 81 mg Atorvastatin Calcium (Lipitor -) 80 mg PO HS [facility] Last Admin: 12/19/17 21:18 Dose: 80 mg Docusate Sodium (Colace -) 100 mg PO TID [facility] Last Admin: 12/20/17 05:37 Dose: Not Given Enoxaparin Sodium (Lovenox -) 40 mg SQ DAILY [facility] Azithromycin 250 mg/ Dextrose 250 mls @ 250 mls/hr IVPB DAILY [facility] Last Admin: 12/20/17 09:29 Dose: 250 mls/hr Ceftriaxone Sodium 1 gm/ (Dextrose) 50 mls @ 100 mls/hr IVPB DAILY [facility]; Protocol Last Admin: 12/20/17 09:29 Dose: 100 mls/hr Metoprolol Succinate (Toprol Xl -) 25 mg PO DAILY [facility] Last Admin: 12/20/17 09:30 Dose: 25 mg Nicotine (Nicoderm Patch -) 7 mg TD DAILY [facility] Last Admin: 12/20/17 09:31 Dose: 7 mg Paroxetine HCl (Paxil -) 5 mg PO HS [facility] Last Admin: 12/19/17 21:18 Dose: 5 mg Ranitidine HCl (Zantac -) 150 mg PO BID [facility] Last Admin: 12/20/17 09:30 Dose: 150 mg Ticagrelor (Brilinta -) 90 mg PO BID [facility] Last Admin: 12/20/17 09:31 Dose: 90 mg Valsartan (Diovan -) 40 mg PO DAILY [facility] Last Admin: 12/20/17 09:30 Dose: 40 mg Gen: NAD at rest Heart: RRR Lung: decreased breath sounds at the bases, scattered rhonchi Abd: soft, nontender Ext: no edema Laboratory Results - last 24 hr 12/20/17 12/20/17 06:25 06:25 WBC 12.5 H RBC 3.47 L Hgb 11.0 L Hct 32.5 L MCV 93.7 MCH 31.7 MCHC 33.9 RDW 13.3 Plt Count 246 MPV 8.2 Sodium 139 Potassium 4.9 Chloride 103 Carbon Dioxide 29 Anion Gap 7 L BUN 15 Creatinine 0.9 Creat Clearance w eGFR > 60 Random Glucose 105 Calcium 9.1 A/P Pneumonia Acute NSTEMI LV Systolic/Diastolic Dysfunction Hypercholesterolemia h/o AAA s/p EVAR Recent Left Humerus fracture - ABX - ASA / brilinta - VTE prophylaxis - beta oskar, statin - O2 to keep Spo2 >90% Dr Medina
--- NOTE | 2017-12-20 17:16 | PN ---
Physical Exam: SUBJECTIVE: Patient seen and examined. No acute events overnight. Pt denies chest pain, sob, fever, chills, nausea, vomiting. Morris PO intake. OBJECTIVE: Vital Signs Vital Signs - 8 hr 12/20/17 10:00 Temperature 98.4 F Pulse Rate 91 H Respiratory 20 Rate Blood Pressure 108/61 O2 Sat by Pulse 98 Oximetry (%) PHYSICAL EXAMINATION GENERAL: AAOx3. NAD. Resting comfortably. HEAD: Normal with no signs of trauma. EYES: Pupils equal, round and reactive to light, extraocular movements intact, sclera anicteric, conjunctiva clear. No lid lag. EARS, NOSE, THROAT: Ears normal, nares patent, oropharynx clear without exudates. Moist mucous membranes. NECK: Normal range of motion, supple without lymphadenopathy, JVD, or masses. LUNGS: Breath sounds equal, crackles to bilateral bases, clear to apexes. No wheezes. No accessory muscle use. HEART: Regular rate and rhythm, normal S1 and S2 without murmur, rub or gallop. ABDOMEN: Soft, nontender, not distended, normoactive bowel sounds, no guarding, no rebound, no masses. No hepatomegaly or splenomegaly. MUSCULOSKELETAL: Normal range of motion at all joints. No bony deformities or tenderness. No CVA tenderness. UPPER EXTREMITIES: Ecchymosis noted to the left proximal humerus. No deformity noted. Sling in place, 2+ pulses, warm, well-perfused. No cyanosis. No clubbing. No peripheral edema. LOWER EXTREMITIES: 2+ pulses, warm, well-perfused. No calf tenderness. No peripheral edema. NEUROLOGICAL: Cranial nerves II-XII intact. Normal speech. Normal gait. PSYCHIATRIC: Cooperative. Good eye contact. Appropriate mood and affect. SKIN: Warm, dry, normal turgor, no rashes or lesions noted, normal capillary refill. Laboratory Results - last 24 hr 12/20/17 12/20/17 06:25 06:25 WBC 12.5 H RBC 3.47 L Hgb 11.0 L Hct 32.5 L MCV 93.7 MCH 31.7 MCHC 33.9 RDW 13.3 Plt Count 246 MPV 8.2 Sodium 139 Potassium 4.9 Chloride 103 Carbon Dioxide 29 Anion Gap 7 L BUN 15 Creatinine 0.9 Creat Clearance w eGFR > 60 Random Glucose 105 Calcium 9.1 Active Medications Generic Name Dose Route Start Last Admin Trade Name Freq PRN Reason Stop Dose Admin Acetaminophen 650 mg 12/18/17 14:44 12/20/17 09:30 Tylenol - PO 650 mg Q4H PRN Administration FEVER Albuterol/Ipratropium 1 amp 12/18/17 14:44 12/20/17 07:31 Duoneb - NEB 1 amp Q4H PRN Administration SHORTNESS OF BREATH Artificial Tears 1 drop 12/18/17 13:58 Artificial Tears OU TID PRN DRY EYES Aspirin 81 mg 12/18/17 22:00 12/19/17 21:18 Asa - PO 81 mg HS [facility] Administration Atorvastatin Calcium 80 mg 12/18/17 22:00 12/19/17 21:18 Lipitor - PO 80 mg HS [facility] Administration Docusate Sodium 100 mg 12/18/17 22:00 12/20/17 14:13 Colace - PO Not Given TID [facility] Enoxaparin Sodium 40 mg 12/21/17 10:00 Lovenox - SQ DAILY [facility] Azithromycin 250 mg/ Dextrose 250 mls @ 250 mls/hr 12/19/17 10:00 12/20/17 09 :29 IVPB 250 mls/hr DAILY [facility] Administration Ceftriaxone Sodium 1 gm/ 50 mls @ 100 mls/hr 12/19/17 10:00 12/20/17 09:29 Dextrose IVPB 100 mls/hr DAILY [facility] Administration Protocol Metoprolol Succinate 25 mg 12/19/17 10:00 12/20/17 09:30 Toprol Xl - PO 25 mg DAILY [facility] Administration Nicotine 7 mg 12/19/17 10:00 12/20/17 09:31 Nicoderm Patch - TD 7 mg DAILY [facility] Administration Paroxetine HCl 5 mg 12/18/17 22:00 12/19/17 21:18 Paxil - PO 5 mg HS [facility] Administration Ranitidine HCl 150 mg 12/18/17 22:00 12/20/17 09:30 Zantac - PO 150 mg BID [facility] Administration Ticagrelor 90 mg 12/18/17 22:00 12/20/17 09:31 Brilinta - PO 90 mg BID [facility] Administration Valsartan 40 mg 12/19/17 10:00 12/20/17 09:30 Diovan - PO 40 mg DAILY [facility] Administration IMAGING: CXR: Right infiltrate. Old left rib trauma. Recent proximal left humeral trauma. Prominent mediastinum. CT chest: Mild COPD changes w/ airspace disease/pna mainly in the R lung and minimal airspace opacities/infiltrates in the L lower lobe. ECG: NORMAL SINUS RHYTHM. POSTERIOR INFARCT , POSSIBLY ACUTE ASSESSMENT/PLAN: 77M w/PMH of AAA repair (2012), BPH, depression presented to [place] ER with cough and generalized weakness and was found to have pneumonia. Found to have concurrent NSTEMI. #NSTEMI; Initial ECG showed new posterior infarct. Pt stable and asymptomatic today. Trops peaked yesterday at 9.25, today 7.60. -cont Aspirin 81 mg PO HS -cont Ticagrelor 90 mg PO BID -cont Atorvastatin 80 mg PO HS -cont Tylenol 650 mg PO Q4H for pain -cont Lovenox 60 mg SQ BID -cont Toprol XL 25 mg PO QD -cont Valsartan 40 mg PO QD -Per cardio (Dr. Hamilton): cont to monitor CBC/Hgb as pt is taking Aspirin, Ticragrelor and Lovenox. Pending clinical course will plan either conservative strategy/MPI study and deciding future intervention vs. invasive strategy ( intervention is being deferred at this point considering patient is asymptomatic , with extensive pneumonia) -ECHO in AM, f/u results for possible LV/RV or valvular dysfxn -O2 supplementation to keep O2 saturation >90% #CAP. Pt stable, denies sob or cough. Afebrile at 98.4. -cont Ceftriaxone 50cc @ 100cc/hr (Day 2) -cont Azithromycin 250cc @ 250cc/hr (Day 2) -O2 supplementation to keep O2 saturation >90% -Monitor CXR in AM -urine cx (-) -blood cx (-) x72hrs -Urine Ag presumptive (-) for Legionella/Pneumococcal #Nicotine dependance -Nicotine patch 7 mg TD QD #Depression -cont Paxil 5 mg PO HS #DVT ppx -cont Lovenox 60 mg SQ BID #FEN -No fluids -Monitor electrolytes -Low fat/cholesterol diet Dispo -cont to monitor on tele Visit type - Emergency Visit Emergency Visit: Yes ED Registration Date: 12/17/17 Care time: The patient presented to the Emergency Department on the above date and was hospitalized for further evaluation of their emergent condition. - New Patient This patient is new to me today: No - Critical Care Critical Care patient: No
--- NOTE | 2017-12-20 17:24 | ECHO ---
Name: JAIDEN DUNNE, Exam:Adult Echocardiogram Study Date: 12/20/2017 03:57 PM Age: 77 yrs Reason For Study: r/o lv dysfunction Height: 69 in Weight: 132 lb BSA: 1.7 m2 MMode/2D Measurements & Calculations IVSd: 1.4 cm Ao root diam: 3.6 cm LVIDd: 4.4 cm LA dimension: 3.1 cm LVIDs: 2.9 cm LVPWd: 1.1 cm LVPWs: 1.8 cm EDV(Teich): 88.3 ml ESV(Teich): 31.2 ml LVOT diam: 2.6 cm Doppler Measurements & Calculations MV E max lewis: 49.9 cm/sec Ao V2 max: 161.7 cm/sec MV A max lewis: 71.1 cm/sec Ao max P.5 mmHg MV E/A: 0.70 MV dec time: 0.12 sec ROBEL(V,D): 2.8 cm2 LV V1 max P.8 mmHg PA V2 max: 114.6 cm/sec LV V1 max: 83.9 cm/sec PA max P.3 mmHg PA acc slope: 304.6 cm/sec2 PA acc time: 0.25 sec Med Peak E' Lewis: 7.3 cm/sec PA pr(Accel): -35.1 mmHg Med E/e': 6.8 Lat Peak E' Lewis: 7.9 cm/sec Lat E/e': 6.3 Tech Comments broken left shoulder. Procedure The study was technically limited with all images being suboptimal in quality. Left Ventricle The left ventricle is normal in size. Poor acoustic window precludes accurate assessment of LV systol ic function. Cannot accurately assess LVEF. Regional wall motion could not be accurately assessed. Right Ventricle The right ventricle is not well visualized. Right ventricular function cannot be assessed due to poor image quality. Atria The left atrial size is normal. Right atrial size is normal. Mitral Valve The mitral valve is normal in structure and function. There is no mitral regurgitation noted. Tricuspid Valve The tricuspid valve is not well visualized. Aortic Valve The aortic valve is not well visualized. Pulmonic Valve The pulmonic valve is not well visualized. Mild pulmonic valvular regurgitation. Great Vessels The aortic root is normal size. Moderately dilated ascending thoracic aorta (4.3 cm). Pericardium/Pleura There is no pericardial effusion. Interpretation Summary The study was technically limited with all images being suboptimal in quality. The left ventricle is normal in size. Poor acoustic window precludes accurate assessment of LV systolic function. Cannot accurately assess LVEF Regional wall motion could not be accurately assessed Right ventricular function cannot be assessed due to poor image quality. The left atrial size is normal. Right atrial size is normal. The tricuspid valve is not well visualized. The aortic valve is not well visualized. Mild pulmonic valvular regurgitation. The aortic root is normal size. Moderately dilated ascending thoracic aorta (4.3 cm) There is no pericardial effusion. Previous study is not available for comparison Josue Vaz MD 12/20/2017 05:24 PM
--- NOTE | 2017-12-20 21:22 | PN ---
Teaching Attending Note Name of Resident: Bailee Zhou ATTENDING PHYSICIAN STATEMENT I saw and evaluated the patient. I reviewed the resident's note and discussed the case with the resident. I agree with the resident's findings and plan as documented. SUBJECTIVE: Patient is doing better, no new complain. No fever or chils , no shortness of breath. OBJECTIVE: Vital Signs Temperature 99.0 F 12/20/17 16:30 Pulse Rate 79 12/20/17 16:30 Respiratory Rate 20 12/20/17 16:30 Blood Pressure 108/61 12/20/17 16:30 O2 Sat by Pulse Oximetry (%) 98 12/20/17 10:00 CBCD WBC 12.5 K/mm3 (4.0-10.0) H 12/20/17 06:25 RBC 3.47 M/mm3 (4.00-5.60) L 12/20/17 06:25 Hgb 11.0 GM/dL (11.7-16.9) L 12/20/17 06:25 Hct 32.5 % (35.4-49) L 12/20/17 06:25 MCV 93.7 fl (80-96) 12/20/17 06:25 MCHC 33.9 g/dl (32.0-35.9) 12/20/17 06:25 RDW 13.3 % (11.9-15.9) 12/20/17 06:25 Plt Count 246 K/MM3 (134-434) 12/20/17 06:25 MPV 8.2 fl (7.5-11.1) 12/20/17 06:25 CMP Sodium 139 mmol/L (136-145) 12/20/17 06:25 Potassium 4.9 mmol/L (3.5-5.1) 12/20/17 06:25 Chloride 103 mmol/L (98-107) 12/20/17 06:25 Carbon Dioxide 29 mmol/L (21-32) 12/20/17 06:25 Anion Gap 7 (8-16) L 12/20/17 06:25 BUN 15 mg/dL (7-18) 12/20/17 06:25 Creatinine 0.9 mg/dL (0.7-1.3) 12/20/17 06:25 Creat Clearance w eGFR > 60 (>60) 12/20/17 06:25 Random Glucose 105 mg/dL (74-106) 12/20/17 06:25 Calcium 9.1 mg/dL (8.5-10.1) 12/20/17 06:25 Total Bilirubin 0.7 mg/dL (0.2-1.0) 12/18/17 05:30 AST 59 U/L (15-37) H D 12/18/17 05:30 ALT 22 U/L (12-78) 12/18/17 05:30 Alkaline Phosphatase 82 U/L (45-117) D 12/18/17 05:30 Total Protein 5.6 g/dl (6.4-8.2) L 12/18/17 05:30 Albumin 2.6 g/dl (3.4-5.0) L 12/18/17 05:30 CARDIAC ENZYMES Creatine Kinase 442 IU/L (39-308) H 12/18/17 16:10 Troponin I 7.60 ng/ml (0.00-0.05) H* 12/19/17 06:05 Current Medications Generic Name Dose Route Start Last Admin Trade Name Freq PRN Reason Stop Dose Admin Acetaminophen 650 mg 12/18/17 14:44 12/20/17 09:30 Tylenol - PO 650 mg Q4H PRN Administration FEVER Albuterol/Ipratropium 1 amp 12/18/17 14:44 12/20/17 07:31 Duoneb - NEB 1 amp Q4H PRN Administration SHORTNESS OF BREATH Artificial Tears 1 drop 12/18/17 13:58 Artificial Tears OU TID PRN DRY EYES Aspirin 81 mg 12/18/17 22:00 12/19/17 21:18 Asa - PO 81 mg HS [facility] Administration Atorvastatin Calcium 80 mg 12/18/17 22:00 12/19/17 21:18 Lipitor - PO 80 mg HS [facility] Administration Docusate Sodium 100 mg 12/18/17 22:00 12/20/17 14:13 Colace - PO Not Given TID [facility] Enoxaparin Sodium 40 mg 12/21/17 10:00 Lovenox - SQ DAILY [facility] Azithromycin 250 mg/ Dextrose 250 mls @ 250 mls/hr 12/19/17 10:00 12/20/17 09 :29 IVPB 250 mls/hr DAILY [facility] Administration Ceftriaxone Sodium 1 gm/ 50 mls @ 100 mls/hr 12/19/17 10:00 12/20/17 09:29 Dextrose IVPB 100 mls/hr DAILY [facility] Administration Protocol Metoprolol Succinate 25 mg 12/19/17 10:00 12/20/17 09:30 Toprol Xl - PO 25 mg DAILY [facility] Administration Nicotine 7 mg 12/19/17 10:00 12/20/17 09:31 Nicoderm Patch - TD 7 mg DAILY [facility] Administration Paroxetine HCl 5 mg 12/18/17 22:00 12/19/17 21:18 Paxil - PO 5 mg HS [facility] Administration Ranitidine HCl 150 mg 12/18/17 22:00 12/20/17 09:30 Zantac - PO 150 mg BID [facility] Administration Ticagrelor 90 mg 12/18/17 22:00 12/20/17 09:31 Brilinta - PO 90 mg BID [facility] Administration Valsartan 40 mg 12/19/17 10:00 12/20/17 09:30 Diovan - PO 40 mg DAILY [facility] Administration Home Medications Medication Instructions Recorded Aspirin [ASA -] 81 mg PO HS 04/01/16 Paroxetine HCl [Paxil -] 20 mg PO HS 04/01/16 Acetaminophen [Tylenol .Regular 650 mg PO Q4H PRN tablet 12/09/17 Strength -] oxyCODONE HCL [Roxicodone -] 5 mg PO Q6H PRN #28 tablet MDD 4 12/09/17 CT: B/L pneumonia ASSESSMENT AND PLAN: Patient is a 77 y/o male, with a past medical history of depression, BPH, and a past surgical history of AAA repair. patient reports generalized weakness and malaise for the past week with productive cough. On December 10 2017 ,Patient was in the hospital for a left proximal humerus fracture # B/L Pneumonia (CAP) continue IV antibiotic , Pulmonary on the case, On rocephin Zithromax # NSTEMI , Ekg consistent with posterior ND, Dr. Santos is on the case, elevated troponins on Lovenox, Brilinta continue, Aspirin, in Tele ,continue to monitor , echo ordered, and pending to evaluate the LV function . on aci/BB/ lipitor 80/ # Acute Systolic/diastolic LV dysfunction with class 0 NYHA classification LV failure # Hypercholesterolemia on Lipitor # History of abdominal aortic aneurysm post EVAR (2012) # Recent fall fracture Humerus for conservative management # Anemia # Hx of BPH # Hx of Depression on Paxil #Constipation on colace 3x per day # Hx of smoking on Nicoderm patch As per Danielle engravings polisher : plan to tx the patient to [facility] for Cath.
[2017-12-20] MEDS ORDERED: PT OWN MED DRAWER 7, Y5N ONE (21:34)
[2017-12-20] MEDS: ATORVASTATIN CA 80 MG TABLET (FP) PO SCH (21:36)
[2017-12-20] MEDS: PARoxetine HCL 10 MG TABLET (FP) PO SCH (21:37)
[2017-12-20] MEDS: ASPIRIN 81 MG CHEWABLE TABLETS PO SCH (21:37)
[2017-12-21] MEDS: ACETAMINOPHEN 325 MG TABLET (FP) PO PRN ×3 (01:00→22:21)
[2017-12-21] MEDS: DOCUSATE SODIUM 100 MG CAPSULE (FP) PO SCH ×3 (05:36→22:21)
[2017-12-21 06:43] LABS: HEMATOCRIT 31.8 % (35.4-49); MCHC 34.6 g/dl (32.0-35.9); MEAN CELL VOLUME 92.7 fl (80-96); MEAN PLT VOLUME 8.1 fl (7.5-11.1); PLATELET COUNT 257 K/MM3 (134-434); RBC 3.44 M/mm3 (4.00-5.60); WHITE BLOOD COUNT 10.2 K/mm3 (4.0-10.0)
[2017-12-21 07:07] LABS: ANION GAP 8 (8-16); BLOOD UREA NITROGEN 19 mg/dL (7-18); CALCIUM 8.9 mg/dL (8.5-10.1); CHLORIDE 104 mmol/L (98-107); CO2 27 mmol/L (21-32); CREATININE 0.8 mg/dL (0.7-1.3); GLUCOSE,RANDOM 115 mg/dL (74-106); POTASSIUM 3.9 mmol/L (3.5-5.1); SODIUM 139 mmol/L (136-145)
--- NOTE | 2017-12-21 08:00 | PN ---
Progress Note (short form) - Note Progress Note: Chief Complaint: Events noted, notes reviewed, denies any chest pain or dyspnea , reports persistence left arm discomfort at the fracture site History of Present Illness: Seen and examined on telemetry. Events noted, notes reviewed, denies any chest pain or dyspnea, reports persistence left arm discomfort at the fracture site CPK and Troponin I noted, peaked Echocardiography report noted, limited study unable to assess LV wall motion and LVEF, patient cannot perform MPI study related to the above noted fracture so plan to proceed with early C& coronary angiography, risk, benifits and alternatives were reviewed in detail - Current Medication List Current Medications: Current Medications Acetaminophen (Tylenol -) 650 mg PO Q4H PRN PRN Reason: FEVER Last Admin: 12/21/17 01:00 Dose: 650 mg Albuterol/Ipratropium (Duoneb -) 1 amp NEB Q4H PRN PRN Reason: SHORTNESS OF BREATH Last Admin: 12/20/17 07:31 Dose: 1 amp Artificial Tears (Artificial Tears) 1 drop OU TID PRN PRN Reason: DRY EYES Aspirin (Asa -) 81 mg PO HS [facility] Last Admin: 12/20/17 21:37 Dose: 81 mg Atorvastatin Calcium (Lipitor -) 80 mg PO HS [facility] Last Admin: 12/20/17 21:36 Dose: 80 mg Docusate Sodium (Colace -) 100 mg PO TID [facility] Last Admin: 12/21/17 05:36 Dose: Not Given Enoxaparin Sodium (Lovenox -) 40 mg SQ DAILY [facility] Azithromycin 250 mg/ Dextrose 250 mls @ 250 mls/hr IVPB DAILY [facility] Last Admin: 12/20/17 09:29 Dose: 250 mls/hr Ceftriaxone Sodium 1 gm/ (Dextrose) 50 mls @ 100 mls/hr IVPB DAILY [facility]; Protocol Last Admin: 12/20/17 09:29 Dose: 100 mls/hr Metoprolol Succinate (Toprol Xl -) 25 mg PO DAILY [facility] Last Admin: 12/20/17 09:30 Dose: 25 mg Nicotine (Nicoderm Patch -) 7 mg TD DAILY [facility] Last Admin: 12/20/17 09:31 Dose: 7 mg Paroxetine HCl (Paxil -) 5 mg PO HS [facility] Last Admin: 12/20/17 21:37 Dose: 5 mg Ranitidine HCl (Zantac -) 150 mg PO BID [facility] Last Admin: 12/20/17 21:37 Dose: 150 mg Ticagrelor (Brilinta -) 90 mg PO BID [facility] Last Admin: 12/20/17 21:37 Dose: 90 mg Valsartan (Diovan -) 40 mg PO DAILY [facility] Last Admin: 12/20/17 09:30 Dose: 40 mg Review of Systems - Review of Systems Cardiovascular: As noted above Respiratory: denies: Hemoptysis, Orthopnea, PND or Cough Gastrointestinal: denies: Abdominal Pain, Constipation, Diarrhea, Melena, Nausea , Vomiting, Rectal Bleeding Genitourinary: denies: Dysuria, Hematuria Musculoskeletal: No symptoms reported Neurological: denies: Dizziness, Headache, Seizure Endocrine: denies: Excessive Sweating - Objective Vital Signs: Last Vital Signs Temp Pulse Resp BP Pulse Ox 97 F L 82 20 114/78 99 12/21/17 05:00 12/21/17 05:00 12/21/17 05:00 12/21/17 05:00 12/20/17 21:00 Intake & Output 12/18/17 12/19/17 12/20/17 12/21/17 23:59 23:59 23:59 23:59 Intake Total 1330 10 Output Total 690 981 3958 1150 Balance 670 -590 -1150 -1150 Neck: Supple Negative JVD No Bruit Cardiovascular: S1 S2 Regular Rate and Rhythm No Murmurs noted Respiratory: Clear to A&P Gastrointestinal: Soft Benign Normal Bowel Sounds Ext: No Edema Intact Distal Pulses Labs: CBC, BMP 12/21/17 06:00 12/21/17 06:00 Assessment/Plan ASSESSMENT: 1. CAD post NSTEMI/posterior infarct angina pectoris, as outlined above to proceed with early LHC& coronary angiography 2. 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 Pneumonia, probable community acquired, resolving 4. Hypercholesterolemia 5. History of abdominal aortic aneurysm post EVAR 6. Recent fall fracture Humerus for conservative management 7. Anemia 8. Pre-renal azotemia, resolved PLAN: 1. Continue Toprol XL hemodynamics permitting 2. Continue Diovan hemodynamics permitting 3. Continue Lipitor 4. Continue ASA, Brilinta 5. Continue Lovenox, DVT prophylaxis 6. Antibiotics as per the primary team 7. As outlined above early LHC& coronary angiography discussed in detailed with the patient Mc Hamilton MD
--- NOTE | 2017-12-21 08:42 | PN ---
Teaching Attending Note Name of Resident: Bailee Zhou ATTENDING PHYSICIAN STATEMENT I saw and evaluated the patient. I reviewed the resident's note and discussed the case with the resident. I agree with the resident's findings and plan as documented. SUBJECTIVE: Patient is comfrtoable with no acute distress, no shortness of breath, no nausea or vomiting. OBJECTIVE: Vital Signs Temperature 97 F L 12/21/17 05:00 Pulse Rate 82 12/21/17 05:00 Respiratory Rate 20 12/21/17 05:00 Blood Pressure 114/78 12/21/17 05:00 O2 Sat by Pulse Oximetry (%) 99 12/20/17 21:00 CBCD WBC 10.2 K/mm3 (4.0-10.0) H 12/21/17 06:00 RBC 3.44 M/mm3 (4.00-5.60) L 12/21/17 06:00 Hgb 11.0 GM/dL (11.7-16.9) L 12/21/17 06:00 Hct 31.8 % (35.4-49) L 12/21/17 06:00 MCV 92.7 fl (80-96) 12/21/17 06:00 MCHC 34.6 g/dl (32.0-35.9) 12/21/17 06:00 RDW 13.0 % (11.9-15.9) 12/21/17 06:00 Plt Count 257 K/MM3 (134-434) 12/21/17 06:00 MPV 8.1 fl (7.5-11.1) 12/21/17 06:00 CMP Sodium 139 mmol/L (136-145) 12/21/17 06:00 Potassium 3.9 mmol/L (3.5-5.1) D 12/21/17 06:00 Chloride 104 mmol/L (98-107) 12/21/17 06:00 Carbon Dioxide 27 mmol/L (21-32) 12/21/17 06:00 Anion Gap 8 (8-16) 12/21/17 06:00 BUN 19 mg/dL (7-18) H 12/21/17 06:00 Creatinine 0.8 mg/dL (0.7-1.3) 12/21/17 06:00 Creat Clearance w eGFR > 60 (>60) 12/21/17 06:00 Random Glucose 115 mg/dL (74-106) H 12/21/17 06:00 Calcium 8.9 mg/dL (8.5-10.1) 12/21/17 06:00 Total Bilirubin 0.7 mg/dL (0.2-1.0) 12/18/17 05:30 AST 59 U/L (15-37) H D 12/18/17 05:30 ALT 22 U/L (12-78) 12/18/17 05:30 Alkaline Phosphatase 82 U/L (45-117) D 12/18/17 05:30 Total Protein 5.6 g/dl (6.4-8.2) L 12/18/17 05:30 Albumin 2.6 g/dl (3.4-5.0) L 12/18/17 05:30 CARDIAC ENZYMES Creatine Kinase 442 IU/L (39-308) H 12/18/17 16:10 Troponin I 7.60 ng/ml (0.00-0.05) H* 12/19/17 06:05 Current Medications Generic Name Dose Route Start Last Admin Trade Name Freq PRN Reason Stop Dose Admin Acetaminophen 650 mg 12/18/17 14:44 12/21/17 01:00 Tylenol - PO 650 mg Q4H PRN Administration FEVER Albuterol/Ipratropium 1 amp 12/18/17 14:44 12/20/17 07:31 Duoneb - NEB 1 amp Q4H PRN Administration SHORTNESS OF BREATH Artificial Tears 1 drop 12/18/17 13:58 Artificial Tears OU TID PRN DRY EYES Aspirin 81 mg 12/18/17 22:00 12/20/17 21:37 Asa - PO 81 mg HS [facility] Administration Atorvastatin Calcium 80 mg 12/18/17 22:00 12/20/17 21:36 Lipitor - PO 80 mg HS [facility] Administration Docusate Sodium 100 mg 12/18/17 22:00 12/21/17 05:36 Colace - PO Not Given TID [facility] Enoxaparin Sodium 40 mg 12/21/17 10:00 Lovenox - SQ DAILY [facility] Azithromycin 250 mg/ Dextrose 250 mls @ 250 mls/hr 12/19/17 10:00 12/20/17 09 :29 IVPB 250 mls/hr DAILY [facility] Administration Ceftriaxone Sodium 1 gm/ 50 mls @ 100 mls/hr 12/19/17 10:00 12/20/17 09:29 Dextrose IVPB 100 mls/hr DAILY [facility] Administration Protocol Metoprolol Succinate 25 mg 12/19/17 10:00 12/20/17 09:30 Toprol Xl - PO 25 mg DAILY [facility] Administration Nicotine 7 mg 12/19/17 10:00 12/20/17 09:31 Nicoderm Patch - TD 7 mg DAILY [facility] Administration Paroxetine HCl 5 mg 12/18/17 22:00 12/20/17 21:37 Paxil - PO 5 mg HS [facility] Administration Ranitidine HCl 150 mg 12/18/17 22:00 12/20/17 21:37 Zantac - PO 150 mg BID [facility] Administration Ticagrelor 90 mg 12/18/17 22:00 12/20/17 21:37 Brilinta - PO 90 mg BID [facility] Administration Valsartan 40 mg 12/19/17 10:00 12/20/17 09:30 Diovan - PO 40 mg DAILY [facility] Administration Home Medications Medication Instructions Recorded Aspirin [ASA -] 81 mg PO HS 04/01/16 Paroxetine HCl [Paxil -] 20 mg PO HS 04/01/16 Acetaminophen [Tylenol .Regular 650 mg PO Q4H PRN tablet 12/09/17 Strength -] oxyCODONE HCL [Roxicodone -] 5 mg PO Q6H PRN #28 tablet MDD 4 12/09/17 Chest: decreased Bs Bl, No w/r/r Heart: S1S2 positive. ECHO: Moderately ascending thoracic Aorta (4.3cm) no effusion can't assess the LV function . CT: B/L infiltrate , R>L CXR: R infiltrate, old trauma left humoral ASSESSMENT AND PLAN: Patient is a 77 y/o male, with a past medical history of depression, BPH, and a past surgical history of AAA repair. patient reports generalized weakness and malaise for the past week with productive cough. On December 10 2017 ,Patient was in the hospital for a left proximal humerus fracture #BL Pneumonia (CAP) on IV antibiotic , Pulmonary on the case, On rocephin Zithromax IV continue for now. # NSTEMI , Ekg consistent with posterior WI,Dr. Santos is on the case, elevated troponins on Lovenox, Brilinta continue, Aspirin, in Tele to be monitored, echo resulted as aboe, on aci/BB/lipitor 80/continue medical treatment for now, getting transferred to [address] in am y # Acute Systolic/diastolic LV dysfunction with class 0 NYHA classification LV failure # Hypercholesterolemia on Lipitor # History of abdominal aortic aneurysm post EVAR (2012), ECHO: Moderately ascending thoracic Aorta (4.3cm) no effusion # Recent fall fracture Humerus for conservative management # Anemia # Hx of BPH # Hx of Depression on Paxil #Constipation on colace 3x per day # Hx of smoking on Nicoderm patch As per Danielle neon tube pumper : patient carl be transferred to [facility] for Cath.
[2017-12-21] MEDS ORDERED: PT OWN MED DRAWER 7, Y5N ONE ×2 (08:58→21:38)
[2017-12-21] MEDS ORDERED: DEXTROSE 5%-WATER - 100 ML IVPB ONE (08:59)
[2017-12-21] MEDS ORDERED: cefTRIAXone SODIUM 1 GM VIAL ONE (08:59)
[2017-12-21] MEDS: TICAGRELOR 90 MG TABLET PO SCH ×2 (09:52→22:21)
[2017-12-21] MEDS: RANITIDINE HCL 150 MG TABLET (FP) PO SCH ×2 (09:52→22:20)
[2017-12-21] MEDS: metoPROLOL SUCCINATE 25 MG TAB.SR.24H (FP) PO SCH (09:53)
[2017-12-21] MEDS: VALSARTAN 40 MG TABLET (FP) PO SCH (09:53)
[2017-12-21] MEDS: NICOTINE 7 MG/24 HOURS TOPICAL PATCH TD SCH (09:54)
[2017-12-21] MEDS: ENOXAPARIN NA (PORCINE) 40 MG/0.4 ML DISP.SYRIN SQ SCH (09:56)
[2017-12-21] MEDS: CEFTRIAXONE 1 GM in DEXTROSE 5%-WATER - 50 ML IVPB SCH (09:56)
[2017-12-21] MEDS: AZITHROMYCIN IVPB 250 MG in DEXTROSE 5%-WATER - 250 ML IVPB SCH (10:36)
--- NOTE | 2017-12-21 13:02 | PN ---
Progress Note (short form) - Note Progress Note: Denies shortness of breath or chest pain. Still with some discomfort at fracture site. No fevers or chills. Intake & Output 12/18/17 12/19/17 12/20/17 12/21/17 23:59 23:59 23:59 23:59 Intake Total 1330 10 420 Output Total 259 708 6329 1650 Balance 417 -919 -1150 1230 Last Vital Signs Temp Pulse Resp BP Pulse Ox 97 F L 82 20 114/78 98 12/21/17 09:00 12/21/17 09:00 12/21/17 09:00 12/21/17 09:00 12/21/17 09:00 Active Medications Acetaminophen (Tylenol -) 650 mg PO Q4H PRN PRN Reason: FEVER Last Admin: 12/21/17 10:02 Dose: 650 mg Albuterol/Ipratropium (Duoneb -) 1 amp NEB Q4H PRN PRN Reason: SHORTNESS OF BREATH Last Admin: 12/20/17 07:31 Dose: 1 amp Artificial Tears (Artificial Tears) 1 drop OU TID PRN PRN Reason: DRY EYES Last Admin: 12/21/17 10:00 Dose: 1 drop Aspirin (Asa -) 81 mg PO HS [facility] Last Admin: 12/20/17 21:37 Dose: 81 mg Atorvastatin Calcium (Lipitor -) 80 mg PO HS [facility] Last Admin: 12/20/17 21:36 Dose: 80 mg Docusate Sodium (Colace -) 100 mg PO TID [facility] Last Admin: 12/21/17 05:36 Dose: Not Given Enoxaparin Sodium (Lovenox -) 40 mg SQ DAILY [facility] Last Admin: 12/21/17 09:56 Dose: 40 mg Azithromycin 250 mg/ Dextrose 250 mls @ 250 mls/hr IVPB DAILY [facility] Last Admin: 12/21/17 10:36 Dose: 250 mls/hr Ceftriaxone Sodium 1 gm/ (Dextrose) 50 mls @ 100 mls/hr IVPB DAILY [facility]; Protocol Last Admin: 12/21/17 09:56 Dose: 100 mls/hr Melatonin (Melatonin) 5 mg PO HS PRN PRN Reason: INSOMNIA Metoprolol Succinate (Toprol Xl -) 25 mg PO DAILY [facility] Last Admin: 12/21/17 09:53 Dose: 25 mg Nicotine (Nicoderm Patch -) 7 mg TD DAILY [facility] Last Admin: 12/21/17 09:54 Dose: 7 mg Paroxetine HCl (Paxil -) 5 mg PO HS [facility] Last Admin: 12/20/17 21:37 Dose: 5 mg Ranitidine HCl (Zantac -) 150 mg PO BID [facility] Last Admin: 12/21/17 09:52 Dose: 150 mg Ticagrelor (Brilinta -) 90 mg PO BID [facility] Last Admin: 12/21/17 09:52 Dose: 90 mg Valsartan (Diovan -) 40 mg PO DAILY [facility] Last Admin: 12/21/17 09:53 Dose: 40 mg Gen: NAD at rest Heart: RRR Lung: decreased breath sounds at the bases, scattered rhonchi Abd: soft, nontender Ext: no edema Laboratory Results - last 24 hr 12/21/17 12/21/17 06:00 06:00 WBC 10.2 H RBC 3.44 L Hgb 11.0 L Hct 31.8 L MCV 92.7 MCH 32.0 MCHC 34.6 RDW 13.0 Plt Count 257 MPV 8.1 Sodium 139 Potassium 3.9 D Chloride 104 Carbon Dioxide 27 Anion Gap 8 BUN 19 H Creatinine 0.8 Creat Clearance w eGFR > 60 Random Glucose 115 H Calcium 8.9 A/P Pneumonia Acute NSTEMI LV Systolic/Diastolic Dysfunction Hypercholesterolemia h/o AAA s/p EVAR Recent Left Humerus fracture - ABX - ASA / brilinta - VTE prophylaxis - beta oskar, statin - O2 to keep Spo2 >90% Dr Medina
--- NOTE | 2017-12-21 13:28 | PN ---
Physical Exam: SUBJECTIVE: Patient seen and examined at bedside. Pt complaints of being unable to sleep due to positional discomfort because of L arm fracture. Denies chest pain, sob, nausea/vomiting, urinary/bowel symptoms. OBJECTIVE: Vital Signs Period Temp Pulse Resp BP Sys/Verde Pulse Ox Last 24 Hr 97 F-99.0 F 79-86 20-20 101-120/58-78 98-99 GENERAL: AAOx3. NAD. Resting comfortably. HEAD: Normal with no signs of trauma. EYES: Pupils equal, round and reactive to light, extraocular movements intact, sclera anicteric, conjunctiva clear. No lid lag. EARS, NOSE, THROAT: Ears normal, nares patent, oropharynx clear without exudates. Moist mucous membranes. NECK: Normal range of motion, supple without lymphadenopathy, JVD, or masses. LUNGS: Breath sounds equal, crackles to bilateral bases, clear to apexes. No wheezes. No accessory muscle use. HEART: Regular rate and rhythm, normal S1 and S2 without murmur, rub or gallop. ABDOMEN: Soft, nontender, not distended, normoactive bowel sounds, no guarding, no rebound, no masses. No hepatomegaly or splenomegaly. MUSCULOSKELETAL: Normal range of motion at all joints. No bony deformities or tenderness. No CVA tenderness. UPPER EXTREMITIES: Ecchymosis noted to the left proximal humerus. No deformity noted. Sling in place, 2+ pulses, warm, well-perfused. No cyanosis. No clubbing. No peripheral edema. LOWER EXTREMITIES: 2+ pulses, warm, well-perfused. No calf tenderness. No peripheral edema. NEUROLOGICAL: Cranial nerves II-XII intact. Normal speech. Normal gait. PSYCHIATRIC: Cooperative. Good eye contact. Appropriate mood and affect. SKIN: Warm, dry, normal turgor, no rashes or lesions noted, normal capillary refill. Laboratory Results - last 24 hr 12/21/17 12/21/17 06:00 06:00 WBC 10.2 H RBC 3.44 L Hgb 11.0 L Hct 31.8 L MCV 92.7 MCH 32.0 MCHC 34.6 RDW 13.0 Plt Count 257 MPV 8.1 Sodium 139 Potassium 3.9 D Chloride 104 Carbon Dioxide 27 Anion Gap 8 BUN 19 H Creatinine 0.8 Creat Clearance w eGFR > 60 Random Glucose 115 H Calcium 8.9 Active Medications Generic Name Dose Route Start Last Admin Trade Name Freq PRN Reason Stop Dose Admin Acetaminophen 650 mg 12/18/17 14:44 12/21/17 10:02 Tylenol - PO 650 mg Q4H PRN Administration FEVER Albuterol/Ipratropium 1 amp 12/18/17 14:44 12/20/17 07:31 Duoneb - NEB 1 amp Q4H PRN Administration SHORTNESS OF BREATH Artificial Tears 1 drop 12/18/17 13:58 12/21/17 10:00 Artificial Tears OU 1 drop TID PRN Administration DRY EYES Aspirin 81 mg 12/18/17 22:00 12/20/17 21:37 Asa - PO 81 mg HS [facility] Administration Atorvastatin Calcium 80 mg 12/18/17 22:00 12/20/17 21:36 Lipitor - PO 80 mg HS [facility] Administration Docusate Sodium 100 mg 12/18/17 22:00 12/21/17 05:36 Colace - PO Not Given TID [facility] Enoxaparin Sodium 40 mg 12/21/17 10:00 12/21/17 09:56 Lovenox - SQ 40 mg DAILY [facility] Administration Azithromycin 250 mg/ Dextrose 250 mls @ 250 mls/hr 12/19/17 10:00 12/21/17 10 :36 IVPB 250 mls/hr DAILY [facility] Administration Ceftriaxone Sodium 1 gm/ 50 mls @ 100 mls/hr 12/19/17 10:00 12/21/17 09:56 Dextrose IVPB 100 mls/hr DAILY [facility] Administration Protocol Melatonin 5 mg 12/21/17 22:00 Melatonin PO HS PRN INSOMNIA Metoprolol Succinate 25 mg 12/19/17 10:00 12/21/17 09:53 Toprol Xl - PO 25 mg DAILY [facility] Administration Nicotine 7 mg 12/19/17 10:00 12/21/17 09:54 Nicoderm Patch - TD 7 mg DAILY [facility] Administration Paroxetine HCl 5 mg 12/18/17 22:00 12/20/17 21:37 Paxil - PO 5 mg HS [facility] Administration Ranitidine HCl 150 mg 12/18/17 22:00 12/21/17 09:52 Zantac - PO 150 mg BID [facility] Administration Ticagrelor 90 mg 12/18/17 22:00 12/21/17 09:52 Brilinta - PO 90 mg BID [facility] Administration Valsartan 40 mg 12/19/17 10:00 12/21/17 09:53 Diovan - PO 40 mg DAILY [facility] Administration IMAGING: CXR: Right infiltrate. Old left rib trauma. Recent proximal left humeral trauma. Prominent mediastinum. CT chest: Mild COPD changes w/ airspace disease/pna mainly in the R lung and minimal airspace opacities/infiltrates in the L lower lobe. ECG: NORMAL SINUS RHYTHM. POSTERIOR INFARCT , POSSIBLY ACUTE -Urine Ag presumptive (-) for Legionella/Pneumococcal ASSESSMENT/PLAN: 77M w/PMH of AAA repair (2012), BPH, depression presented to [facility] with cough and generalized weakness and was found to have pneumonia. Found to have concurrent NSTEMI. #NSTEMI; Initial ECG showed new posterior infarct. Pt stable and asymptomatic today. -cont Aspirin 81 mg PO HS -cont Ticagrelor 90 mg PO BID -cont Atorvastatin 80 mg PO HS -cont Tylenol 650 mg PO Q4H for pain -cont Lovenox 60 mg SQ BID -cont Toprol XL 25 mg PO QD -cont Valsartan 40 mg PO QD -Per cardio (Dr. Hamilton): Limited echo study done, unable to asses LV wall motion and LVEF; MPI study could not be performed due to noted fracture. Pt will be going to [facility] for cardiac cath. -O2 supplementation to keep O2 saturation >90% #CAP. Pt stable, denies sob or cough. Afebrile at 97. -cont Ceftriaxone 50cc @ 100cc/hr (Day 3) -cont Azithromycin 250cc @ 250cc/hr (Day 3) -O2 supplementation to keep O2 saturation >90% -urine cx (-) -blood cx (-) x72hrs #Nicotine dependance -Nicotine patch 7 mg TD QD #Depression -cont Paxil 5 mg PO HS #DVT ppx -cont Lovenox 60 mg SQ BID #FEN -No fluids -Monitor electrolytes -Low fat/cholesterol diet Dispo -cont to monitor on tele -transfer to [facility] tomorrow, for cardiac cath, then will be going to SNF Visit type - Emergency Visit Emergency Visit: Yes ED Registration Date: 12/17/17 Care time: The patient presented to the Emergency Department on the above date and was hospitalized for further evaluation of their emergent condition. - New Patient This patient is new to me today: No - Critical Care Critical Care patient: No
[2017-12-21] MEDS: ALBUTEROL SO4 2.5/IPRATROPIUM 0.5 INH SOL 3 ML VIAL.NEB. NEB PRN ×2 (17:02→20:48)
[2017-12-21] MEDS ORDERED: MELATONIN 5 MG TABLETS PO PRN (22:00)
[2017-12-21] MEDS: ASPIRIN 81 MG CHEWABLE TABLETS PO SCH (22:21)
[2017-12-21] MEDS: ATORVASTATIN CA 80 MG TABLET (FP) PO SCH (22:21)
[2017-12-21] MEDS: PARoxetine HCL 10 MG TABLET (FP) PO SCH (22:21)
[2017-12-22] MEDS: DOCUSATE SODIUM 100 MG CAPSULE (FP) PO SCH (05:15)
[2017-12-22] MEDS ORDERED: DEXTROSE 5%-WATER - 50 ML IVPB ONE (08:58)
[2017-12-22] MEDS ORDERED: PT OWN MED DRAWER 7, Y5N ONE (08:58)
[2017-12-22] MEDS ORDERED: cefTRIAXone SODIUM 1 GM VIAL ONE (08:58)
[2017-12-22] MEDS: NICOTINE 7 MG/24 HOURS TOPICAL PATCH TD SCH (09:57)
[2017-12-22] MEDS: metoPROLOL SUCCINATE 25 MG TAB.SR.24H (FP) PO SCH (09:57)
[2017-12-22] MEDS: VALSARTAN 40 MG TABLET (FP) PO SCH (09:57)
[2017-12-22] MEDS: RANITIDINE HCL 150 MG TABLET (FP) PO SCH (09:58)
[2017-12-22] MEDS: CEFTRIAXONE 1 GM in DEXTROSE 5%-WATER - 50 ML IVPB SCH (09:58)
[2017-12-22] MEDS: TICAGRELOR 90 MG TABLET PO SCH (09:58)
[2017-12-22] MEDS: ENOXAPARIN NA (PORCINE) 40 MG/0.4 ML DISP.SYRIN SQ SCH (09:58)
[2017-12-22] MEDS: AZITHROMYCIN IVPB 250 MG in DEXTROSE 5%-WATER - 250 ML IVPB SCH (10:00)
--- NOTE | 2017-12-22 11:07 | PN ---
Progress Note, Physician History of Present Illness: Ambulates without any chest pain, dyspnea or fatigue, reports improvement in left arm discomfort at the fracture site. - Current Medication List Current Medications: Active Medications Acetaminophen (Tylenol -) 650 mg PO Q4H PRN PRN Reason: FEVER Last Admin: 12/21/17 22:21 Dose: 650 mg Albuterol/Ipratropium (Duoneb -) 1 amp NEB Q4H PRN PRN Reason: SHORTNESS OF BREATH Last Admin: 12/21/17 20:48 Dose: 1 amp Artificial Tears (Artificial Tears) 1 drop OU TID PRN PRN Reason: DRY EYES Last Admin: 12/21/17 10:00 Dose: 1 drop Aspirin (Asa -) 81 mg PO HS [facility] Last Admin: 12/21/17 22:21 Dose: 81 mg Atorvastatin Calcium (Lipitor -) 80 mg PO HS [facility] Last Admin: 12/21/17 22:21 Dose: 80 mg Docusate Sodium (Colace -) 100 mg PO TID [facility] Last Admin: 12/22/17 05:15 Dose: 100 mg Enoxaparin Sodium (Lovenox -) 40 mg SQ DAILY [facility] Last Admin: 12/22/17 09:58 Dose: 40 mg Azithromycin 250 mg/ Dextrose 250 mls @ 250 mls/hr IVPB DAILY [facility] Last Admin: 12/22/17 10:00 Dose: 250 mls/hr Ceftriaxone Sodium 1 gm/ (Dextrose) 50 mls @ 100 mls/hr IVPB DAILY [facility]; Protocol Last Admin: 12/22/17 09:58 Dose: 100 mls/hr Melatonin (Melatonin) 5 mg PO HS PRN PRN Reason: INSOMNIA Last Admin: 12/21/17 22:20 Dose: 5 mg Metoprolol Succinate (Toprol Xl -) 25 mg PO DAILY [facility] Last Admin: 12/22/17 09:57 Dose: Not Given Nicotine (Nicoderm Patch -) 7 mg TD DAILY [facility] Last Admin: 12/22/17 09:57 Dose: 7 mg Paroxetine HCl (Paxil -) 5 mg PO HS [facility] Last Admin: 12/21/17 22:21 Dose: 5 mg Ranitidine HCl (Zantac -) 150 mg PO BID [facility] Last Admin: 12/22/17 09:58 Dose: 150 mg Ticagrelor (Brilinta -) 90 mg PO BID [facility] Last Admin: 12/22/17 09:58 Dose: 90 mg Valsartan (Diovan -) 40 mg PO DAILY [facility] Last Admin: 12/22/17 09:57 Dose: Not Given - Objective Vital Signs: Vital Signs Temperature 97.4 F L 12/22/17 05:46 Pulse Rate 72 12/22/17 05:46 Respiratory Rate 18 12/22/17 05:46 Blood Pressure 109/65 12/22/17 05:46 O2 Sat by Pulse Oximetry (%) 100 12/21/17 20:52 Constitutional: Yes: No Distress, Calm, Thin Neck: Yes: Supple Cardiovascular: Yes: Regular Rate and Rhythm Respiratory: Yes: Regular, CTA Bilaterally Gastrointestinal: Yes: Normal Bowel Sounds, Soft Musculoskeletal: Yes: Other (Right humerus fracture) Edema: No Labs: CBC, BMP 12/21/17 06:00 12/21/17 06:00 INR, PTT INR 1.32 (0.83-1.09) H 12/18/17 05:30 Problem List - Problems (1) NSTEMI (non-ST elevated myocardial infarction) Code(s): I21.4 - NON-ST ELEVATION (NSTEMI) MYOCARDIAL INFARCTION (2) Closed fracture of left proximal humerus Code(s): S42.A - UNSP FRACTURE OF UPPER END OF LEFT HUMERUS, INIT FOR CLOS FX Qualifiers: Encounter type: initial encounter Fracture morphology: unspecified fracture morphology Qualified Code(s): S42.202A - Unspecified fracture of upper end of left humerus, initial encounter for closed fracture (3) Pneumonia Code(s): J18.9 - PNEUMONIA, UNSPECIFIED ORGANISM Qualifiers: Pneumonia type: due to unspecified organism Laterality: right Lung location: unspecified part of lung Qualified Code(s): J18.9 - Pneumonia, unspecified organism (4) Diastolic dysfunction Code(s): I51.9 - HEART DISEASE, UNSPECIFIED (5) History of endovascular stent graft for abdominal aortic aneurysm Code(s): Z95.828 - PRESENCE OF OTHER VASCULAR IMPLANTS AND GRAFTS Assessment/Plan ECHO: Moderately ascending thoracic Aorta (4.3cm) no effusion can't assess the LV function . 1. CAD post NSTEMI/posterior infarct angina pectoris, recommended [facility]& coronary angiography 2. 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 Pneumonia, probable community acquired, resolving 4. Hypercholesterolemia 5. History of abdominal aortic aneurysm post EVAR 6. Recent fall fracture Humerus for conservative management 7. Anemia 8. Pre-renal azotemia, resolved PLAN: 1. Continue Toprol XL 25 qd hemodynamics permitting 2. Continue Diovan 40 qd hemodynamics permitting 3. Continue Lipitor 80 qd 4. Continue ASA 81 qd, Brilinta 90 bid 5. Continue Lovenox for DVT prophylaxis 6. Complete antibiotic course as per the primary team 7. As outlined above transfer for [facility]& coronary angiography discussed in detailed with the patient, patient has decided to proceed
[2017-12-22 11:32] VITALS: BP 90/56; PULSE 88; TEMP 97.5
--- NOTE | 2017-12-22 12:36 | PN ---
Progress Note (short form) - Note Progress Note: Denies shortness of breath or chest pain. Still with some discomfort at fracture site. No fevers or chills. Intake & Output 12/19/17 12/20/17 12/21/17 12/22/17 23:59 23:59 23:59 23:59 Intake Total 10 920 650 Output Total 600 1150 2720 550 Balance -590 -1150 -1800 100 Last Vital Signs Temp Pulse Resp BP Pulse Ox 97.5 F L 88 18 90/56 98 12/22/17 10:00 12/22/17 10:00 12/22/17 10:00 12/22/17 10:00 12/22/17 09:00 Active Medications Acetaminophen (Tylenol -) 650 mg PO Q4H PRN PRN Reason: FEVER Last Admin: 12/21/17 22:21 Dose: 650 mg Albuterol/Ipratropium (Duoneb -) 1 amp NEB Q4H PRN PRN Reason: SHORTNESS OF BREATH Last Admin: 12/21/17 20:48 Dose: 1 amp Artificial Tears (Artificial Tears) 1 drop OU TID PRN PRN Reason: DRY EYES Last Admin: 12/21/17 10:00 Dose: 1 drop Aspirin (Asa -) 81 mg PO HS [facility] Last Admin: 12/21/17 22:21 Dose: 81 mg Atorvastatin Calcium (Lipitor -) 80 mg PO HS [facility] Last Admin: 12/21/17 22:21 Dose: 80 mg Docusate Sodium (Colace -) 100 mg PO TID [facility] Last Admin: 12/22/17 05:15 Dose: 100 mg Enoxaparin Sodium (Lovenox -) 40 mg SQ DAILY [facility] Last Admin: 12/22/17 09:58 Dose: 40 mg Azithromycin 250 mg/ Dextrose 250 mls @ 250 mls/hr IVPB DAILY [facility] Last Admin: 12/22/17 10:00 Dose: 250 mls/hr Ceftriaxone Sodium 1 gm/ (Dextrose) 50 mls @ 100 mls/hr IVPB DAILY [facility]; Protocol Last Admin: 12/22/17 09:58 Dose: 100 mls/hr Melatonin (Melatonin) 5 mg PO HS PRN PRN Reason: INSOMNIA Last Admin: 12/21/17 22:20 Dose: 5 mg Metoprolol Succinate (Toprol Xl -) 25 mg PO DAILY [facility] Last Admin: 12/22/17 09:57 Dose: Not Given Nicotine (Nicoderm Patch -) 7 mg TD DAILY [facility] Last Admin: 12/22/17 09:57 Dose: 7 mg Paroxetine HCl (Paxil -) 5 mg PO HS [facility] Last Admin: 12/21/17 22:21 Dose: 5 mg Ranitidine HCl (Zantac -) 150 mg PO BID [facility] Last Admin: 12/22/17 09:58 Dose: 150 mg Ticagrelor (Brilinta -) 90 mg PO BID [facility] Last Admin: 12/22/17 09:58 Dose: 90 mg Valsartan (Diovan -) 40 mg PO DAILY [facility] Last Admin: 12/22/17 09:57 Dose: Not Given Gen: NAD at rest Heart: RRR Lung: decreased breath sounds at the bases, scattered rhonchi Abd: soft, nontender Ext: no edema A/P Pneumonia Acute NSTEMI LV Systolic/Diastolic Dysfunction Hypercholesterolemia h/o AAA s/p EVAR Recent Left Humerus fracture - ABX - ASA / brilinta - VTE prophylaxis - beta oskar, statin - O2 to keep Spo2 >90% - For Cardiac Cath at [place] Dr [place]
--- NOTE | 2017-12-22 13:18 | DS ---
Physical Exam: SUBJECTIVE: Patient seen and examined at bedside. Pt has no complaints. OBJECTIVE: Vital Signs Period Temp Pulse Resp BP Sys/Verde Pulse Ox Last 24 Hr 97.4 F-98.6 F 72-88 16-18 90-110/56-69 98-100 PHYSICAL EXAM GENERAL: AAOx3. NAD. Resting comfortably. HEAD: Normal with no signs of trauma. EYES: Pupils equal, round and reactive to light, extraocular movements intact, sclera anicteric, conjunctiva clear. No lid lag. EARS, NOSE, THROAT: Ears normal, nares patent, oropharynx clear without exudates. Moist mucous membranes. NECK: Normal range of motion, supple without lymphadenopathy, JVD, or masses. LUNGS: Breath sounds equal, crackles to bilateral bases, clear to apexes. No wheezes. No accessory muscle use. HEART: Regular rate and rhythm, normal S1 and S2 without murmur, rub or gallop. ABDOMEN: Soft, nontender, not distended, normoactive bowel sounds, no guarding, no rebound, no masses. No hepatomegaly or splenomegaly. MUSCULOSKELETAL: Normal range of motion at all joints. No bony deformities or tenderness. No CVA tenderness. UPPER EXTREMITIES: Ecchymosis noted to the left proximal humerus. No deformity noted. Sling in place, 2+ pulses, warm, well-perfused. No cyanosis. No clubbing. No peripheral edema. LOWER EXTREMITIES: 2+ pulses, warm, well-perfused. No calf tenderness. No peripheral edema. NEUROLOGICAL: Cranial nerves II-XII intact. Normal speech. Normal gait. PSYCHIATRIC: Cooperative. Good eye contact. Appropriate mood and affect. SKIN: Warm, dry, normal turgor, no rashes or lesions noted, normal capillary refill. LABS HOSPITAL COURSE: Date of Admission:12/17/17 CXR: Right infiltrate. Old left rib trauma. Recent proximal left humeral trauma. Prominent mediastinum. CT chest: Mild COPD changes w/ airspace disease/pna mainly in the R lung and minimal airspace opacities/infiltrates in the L lower lobe. ECG: NORMAL SINUS RHYTHM. POSTERIOR INFARCT , POSSIBLY ACUTE -Urine Ag presumptive (-) for Legionella/Pneumococcal ASSESSMENT/PLAN: 77M w/ PMH of AAA repair (2012), BPH, depression, L proximal humeral fracture presented in the ED with cough and generalized weakness and was found to have pneumonia. CXR was done and showed R sided infiltrate. A CT chest was also done that showed mild COPD changes w/ airspace disease/pna mainly in the R lung and minimal airspace opacities/infiltrates in the L lower lobe. Pt was given Ceftriaxone and Azithromycin for antibiotic treatment of the pneumonia. Additionally, an ECG was done in the ED that showed a possible acute posterior infarct. As a result, pt was found to have a concurrent NSTEMI. Cardio was consulted. Upon cardio evaluation, a MPI study was attempted, but could not be performed due to pt's L proximal humeral fracture. As a result, cardio recommended pt for transfer to an acute care hospital for early LHC & coronary angiography. Throughout the duration of his hospital stay, pt's symptoms improved with no complaints of chest pain, shortness of breath, fever, or chills. He was transferred to an acute care hospital for a cardiac catherization and continuation of his hospital care. Date of Discharge: 12/22/17 Minutes to complete discharge: 35 Discharge Summary Reason For Visit: PNEUMONIA/CLOSED FRACTURE LT HUMERUS/SEPSIS Current Active Problems Closed fracture of left proximal humerus (Acute) NSTEMI (non-ST elevated myocardial infarction) (Acute) Pneumonia (Acute) Condition: Stable - Instructions Diet, Activity, Other Instructions: You were admitted to the hospital for pneumonia. You were treated with antibiotics during your hospital stay. Additionally, you had an ECG that showed you had a mild heart attack. You were evaluated by cardiology and it was decided that you needed a cardiac catheterization. Your symptoms improved during your hospital stay. You are being transferred to another acute care hospital for this procedure per recommendation of the switchboard operator. Please follow all recommendations given by the [facility] upon your discharge. Disposition: TRANSFER ACUTE CARE/OTHER HOSP - Home Medications Comprehensive Discharge Medication List: Ambulatory Orders Paroxetine HCl [Paxil -] 20 mg PO HS 04/01/16 Acetaminophen [Tylenol .Regular Strength -] 650 mg PO Q4H PRN tablet 12/22/17 Albuterol 2.5/Ipratropium 0.5 [Duoneb -] 1 amp NEB Q4H PRN amp 12/22/17 Aspirin [ASA -] 81 mg PO HS tab.chew 12/22/17 Atorvastatin Ca [Lipitor] 80 mg PO HS tablet 12/22/17 Azithromycin Ivpb [Zithromax Ivpb -] 250 mg IVPB DAILY vial 12/22/17 Ceftriaxone [Rocephin -] 1 gm IVPB DAILY vial 12/22/17 Docusate Sodium [Colace -] 100 mg PO TID capsule 12/22/17 Enoxaparin [Lovenox -] 40 mg SQ DAILY disp.syrin 12/22/17 Melatonin 5 mg PO HS PRN tab 12/22/17 Nicotine Patch [Nicoderm Patch -] 7 mg TD DAILY patch 12/22/17 Polyvinyl Alcohol [Artificial Tears] 1 drop OU TID PRN drops 12/22/17 Ranitidine [Zantac -] 150 mg PO BID tablet 12/22/17 Ticagrelor [Brilinta -] 90 mg PO BID tablet 12/22/17 Valsartan [Diovan] 40 mg PO DAILY tablet 12/22/17 This patient is new to me today: No Emergency Visit: Yes ED Registration Date: 12/17/17 Care time: The patient presented to the Emergency Department on the above date and was hospitalized for further evaluation of their emergent condition. Critical Care patient: No - Discharge Referral Referred to [facility] Med P.C.: No
--- NOTE | 2017-12-22 16:52 | PN ---
Teaching Attending Note Name of Resident: Bailee Zhou ATTENDING PHYSICIAN STATEMENT I saw and evaluated the patient. I reviewed the resident's note and discussed the case with the resident. I agree with the resident's findings and plan as documented. SUBJECTIVE: Patient has no complaints. OBJECTIVE: Vital Signs Period Temp Pulse Resp BP Sys/Verde Pulse Ox Last 24 Hr 97.4 F-98.6 F 72-88 18-18 90-110/56-69 98-100 HEART; S1S2, RRR LUNGS: Clear ABDOMEN: Soft, non-tender, non-distended, normal BS EXTREMITIES: No edema ASSESSMENT AND PLAN: This is a 77 year old man with a history of depression, BPH, AAA repair who presented to the ED with generalized weakness, malaise, and productive cough. 1. Bilateral pneumonia - Continue Rocephin, Zithromax 2. NSTEMI - Continue Lovenox, Brilinta, aspirin, Toprol XL, Lipitor - Transfer to [facility] or cath today 3. Chronic systolic and diastolic heart failure - Continue Diovan, Toprol XL 4. Hyperlipidemia - Continue Lipitor 5. History of endovascular AAA repair 6. Recent fall with fracture of left humerus - Continue LUE sling 7. Anemia 8. BPH 9. Depression - Continue Paxil 10. Nicotine dependence - Continue nicotine patch
== END 2017-12-22 13:27 | disposition short-term general hospital (02) | DRG 280 ==
LOC: FER 09:30 → FM/S 13:09 → JICU 12-18 01:34 → J4S 12-18 15:30
PROVIDERS: ADMIT Internal Medicine; ATTEND Internal Medicine
DX: I21.4 Non-ST elevation (NSTEMI) myocardial infarction (principal); J18.9 Pneumonia, unspecified organism; I50.42 Chronic combined systolic (congestive) and diastolic (congestive) heart failure; E78.5 Hyperlipidemia, unspecified; D64.9 Anemia, unspecified; N40.0 Benign prostatic hyperplasia without lower urinary tract symptoms; F32.9 Major depressive disorder, single episode, unspecified; K59.00 Constipation, unspecified; F17.200 Nicotine dependence, unspecified, uncomplicated; S42.302D Unspecified fracture of shaft of humerus, left arm, subsequent encounter for fracture with routine healing; W19.XXXA Unspecified fall, initial encounter; Y93.9 Activity, unspecified; Y92.89 Other specified places as the place of occurrence of the external cause; Y99.9 Unspecified external cause status
CPT/HCPCS: 36415; 71045-TC-FY; 71250-TC; 80048; 80053; 80061; 81003; 82550; 82553; 82803; 83605; 83721; 84484; 85025; 85027; 85610; 85730; 87040; 87086; 87899; 93005; 93010; 93306-TC; 94640; 97116-GP; 97162-GP; 99283-25; J7030; J7620

== ENCOUNTER 2018-07-31 20:14 | Emergency (ER) | payer OTHER ==
--- NOTE | 2018-07-31 20:16 | PDOC ---
History of Present Illness - History of Present Illness Initial Comments: 07/31/18 20:32 The patient is a 78 year old male, with a significant PMH of bilateral PNA, NSTEMI, chronic systolic and diastolic heart failure, HLD, AAA repair, anemia, BPH, and depression who presents to the emergency department with a discomfort to the right foot. Patient states he had a splinter on his right foot yesterday , which he tried removing but is unsure if he removed it all. Patient presents to the ER to ensure he removed all of the splinter. The patient denies chest pain, shortness of breath, headache and dizziness. Denies fever, chills, nausea, vomit, diarrhea and constipation. Denies dysuria, frequency, urgency and hematuria. Allergies: NKA Past surgical history: AAA repair Social history: No reported alcohol or drug use. On a nicotine patch. PCP: Dr. Story Adult ROS General: No fevers or chills, no weakness, no weight loss HEENT: No change in vision. No sore throat,. No ear pain CardioVascular: No chest pain or shortness of breath Respiratory:No cough, or wheezing. Gastrointestinal: no nausea, vomiting, diarrhea or constipation, No rectal bleeding Genitourinary: No dysuria, hematuria, or frequency Musculoskeletal: No joint or muscle pain or swelling Neurologic: No headache, vertigo, dizziness or loss of consciousness Psychiatric: nor depression Skin: No rashes or easy bruising. (+) Foreign body on the right foot. Endocrine: no increased thirst or abnormal weight change Allergic: no skin or latex allergy All other systems reviewed and normal Basic PE GENERAL: The patient is awake, alert, and fully oriented, in no acute distress. HEAD: Normal with no signs of trauma. EYES: Pupils equal, round and reactive to light, extraocular movements intact, sclera anicteric, conjunctiva clear. EXTREMITIES: Normal range of motion, no edema. (+) very small foreign body visible on the ball of the right foot. NEUROLOGICAL: Normal speech, normal gait. PSYCH: Normal mood, normal affect. SKIN: Warm, Dry, normal turgor, no rashes noted. <Josi Raymundo - Last Filed: 07/31/18 20:32> - General History Source: Patient Exam Limitations: No Limitations - History of Present Illness Initial Comments: A portion of this note was documented by scribe services under my direction. I have reviewed the details of the note, within reason, and agree with the documentation with the following case summary and management plan written by me. Patient treated in the ED. Nursing notes are reviewed and incorporated into the medical decision-making. Vital signs reviewed. 07/31/18 20:37 Procedure note removal foreign body bottom of foot There appeared to be very superficial foreign body still embedded in the ball of the foot. Area was anesthetized with lidocaine and a small piece of wood splinter was removed from the area. 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) Disorders: Yes (ENLARGED PROSTATE) HTN: No Hypercholesterolemia: No Liver Disease: No Psychiatric Problems: Yes (DEPRESSION) Seizures: No Thyroid Disease: No - Surgical History Abdominal Surgery: Yes (ABDOMINAL AORTIC ANEURYSM 2012) Appendectomy: No Cardiac Surgery: No Cholecystectomy: No Lung Surgery: No Neurologic Surgery: No Orthopedic Surgery: Yes (L SHOULDER DISLOCATION, PARTIAL LEFT KNEE REPLACEMENT) - Suicide/Smoking/Psychosocial Hx Smoking History: Never smoked Have you smoked in the past 12 months: No If you are a former smoker, when did you quit?: 2000 'Breaking Loose' booklet given: 12/08/17 Hx Alcohol Use: No Drug/Substance Use Hx: No Substance Use Type: None Hx Substance Use Treatment: No <Mary Jane Kennedy I - Last Filed: 07/31/18 20:39> - Past Medical History Allergies/Adverse Reactions: Allergies Allergy/AdvReac Type Severity Reaction Status Date / Time No Known Drug Allergies Allergy Verified 07/31/18 20:15 Home Medications: Ambulatory Orders Paroxetine HCl [Paxil -] 20 mg PO HS 04/01/16 Acetaminophen [Tylenol .Regular Strength -] 650 mg PO Q4H PRN tablet 12/22/17 Albuterol 2.5/Ipratropium 0.5 [Duoneb -] 1 amp NEB Q4H PRN amp 12/22/17 Aspirin [ASA -] 81 mg PO HS tab.chew 12/22/17 Atorvastatin Ca [Lipitor] 80 mg PO HS tablet 12/22/17 Azithromycin Ivpb [Zithromax Ivpb -] 250 mg IVPB DAILY vial 12/22/17 Ceftriaxone [Rocephin -] 1 gm IVPB DAILY vial 12/22/17 Docusate Sodium [Colace -] 100 mg PO TID capsule 12/22/17 Enoxaparin [Lovenox -] 40 mg SQ DAILY disp.syrin 12/22/17 Melatonin 5 mg PO HS PRN tab 12/22/17 Nicotine Patch [Nicoderm Patch -] 7 mg TD DAILY patch 12/22/17 Polyvinyl Alcohol [Artificial Tears] 1 drop OU TID PRN drops 12/22/17 Ranitidine [Zantac -] 150 mg PO BID tablet 12/22/17 Ticagrelor [Brilinta -] 90 mg PO BID tablet 12/22/17 Valsartan [Diovan] 40 mg PO DAILY tablet 12/22/17 Pt Doesnt Recall His Meds 07/31/18 *Physical Exam - Vital Signs Last Vital Signs Temp Pulse Resp BP Pulse Ox 97.5 F L 73 18 104/56 L 97 07/31/18 20:15 07/31/18 20:15 07/31/18 20:15 07/31/18 20:15 07/31/18 20:15 <Josi Raymundo - Last Filed: 07/31/18 20:32> Moderate Sedation - Procedure Monitoring Vital Signs: Procedure Monitoring Vital Signs Temperature 97.5 F L 07/31/18 20:15 Pulse Rate 73 07/31/18 20:15 Respiratory Rate 18 07/31/18 20:15 Blood Pressure 104/56 L 07/31/18 20:15 O2 Sat by Pulse Oximetry (%) 97 07/31/18 20:15 <Josi Raymundo - Last Filed: 07/31/18 20:32> *DC/Admit/Observation/Transfer - Attestations Scribe Attestion: 07/31/18 20:35 Documentation prepared by Josi Zackary, acting as medical records tech for Mary Jane Kennedy MD. <Josi Raymundo - Last Filed: 07/31/18 20:32> - Discharge Dispostion Decision to Admit order: No <Mary Jane Kennedy I - Last Filed: 07/31/18 20:39> Diagnosis at time of Disposition: Foreign body in right foot Qualifiers: Encounter type: initial encounter Qualified Code(s): S90.851A - Superficial foreign body, right foot, initial encounter - Discharge Dispostion Disposition: HOME Condition at time of disposition: Stable - Referrals Referrals: Dirk Funez MD [Primary Care Provider] - - Patient Instructions Additional Instructions: I was able to remove a very small amount of what appeared to be a wooden foreign body. I was unable to visualize any additional foreign body. If there is still discomfort or pain on walking and should follow-up with a spring forger as you will need a more extensive probing of the area to discover the foreign body, Return to the emergency department immediately with ANY new, persistent or worsening symptoms. Continue any medications as previously prescribed by your physician. You should follow up with your primary doctor as soon as possible regarding today's emergency department visit. . Please make sure your doctor reviews the results of your emergency evaluation. Thank you for coming to the Emergency Department today for your care. It was a pleasure to see you today. Please note that your evaluation is INCOMPLETE until you follow-up with your doctor. - Post Discharge Activity
[2018-07-31 20:21] VITALS: BP 104/56; PULSE 73; TEMP 97.5; BMI 25.8
[2018-07-31] MEDS ORDERED: DIPHTH,PERTUSS(ACELL),TET 0.5 ML DISP.SYRIN IM ONE ×2 (20:38→20:40)
== END 2018-07-31 20:54 | disposition home or self-care (01) ==
LOC: FER 20:14
PROC: 3E0234Z Introduction of Serum, Toxoid and Vaccine into Muscle, Percutaneous Approach (ICD-10-PCS; principal; 2018-07-31)
DX: S90.851A Superficial foreign body, right foot, initial encounter (principal); I21.3 ST elevation (STEMI) myocardial infarction of unspecified site; E78.5 Hyperlipidemia, unspecified; I71.4 Abdominal aortic aneurysm, without rupture; N40.0 Benign prostatic hyperplasia without lower urinary tract symptoms; F32.9 Major depressive disorder, single episode, unspecified; I50.9 Heart failure, unspecified
CPT/HCPCS: 90715; 99282-25

== ENCOUNTER 2019-02-24 14:29 | Emergency (ER) | payer OTHER ==
--- NOTE | 2019-02-24 14:53 | PDOC ---
History of Present Illness - General Chief Complaint: Injury Stated Complaint: LEFT UPPER ARM PAIN S/P FALL 3 DAYS AGO Time Seen by Provider: 02/24/19 14:31 - History of Present Illness Initial Comments: 02/24/19 15:22 78 year old man with L arm bruising presents with concern over blood clot and for constipation for 1 week Past History - Past Medical History Allergies/Adverse Reactions: Allergies Allergy/AdvReac Type Severity Reaction Status Date / Time No Known Drug Allergies Allergy Verified 07/31/18 20:15 Home Medications: Ambulatory Orders Aspirin 81 mg PO DAILY 02/24/19 Atorvastatin Ca [Lipitor] 40 mg PO HS 02/24/19 Famotidine 20 mg PO BID 02/24/19 Metoprolol Succinate 50 mg PO DAILY 02/24/19 Paroxetine HCl [Paxil] 20 mg PO DAILY 02/24/19 Polyethylene Glycol 3350 [Miralax (For Bowel Prep) -] 17 gm PO DAILY #1 bottle 02/24/19 Tamsulosin HCl [Flomax] 0.4 mg PO DAILY 02/24/19 Ticagrelor [Brilinta] 90 mg PO BID 02/24/19 Valsartan 40 mg PO DAILY 02/24/19 Anemia: No Asthma: No Cancer: No Cardiac Disorders: No CVA: No COPD: No CHF: No Dementia: No Diabetes: No 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) Disorders: Yes (ENLARGED PROSTATE) HTN: No Hypercholesterolemia: No Liver Disease: No Psychiatric Problems: Yes (DEPRESSION) Seizures: No Thyroid Disease: No - Surgical History Abdominal Surgery: Yes (ABDOMINAL AORTIC ANEURYSM 2012) Appendectomy: No Cardiac Surgery: No Cholecystectomy: No Lung Surgery: No Neurologic Surgery: No Orthopedic Surgery: Yes (L SHOULDER DISLOCATION, PARTIAL LEFT KNEE REPLACEMENT) - Psycho Social/Smoking Cessation Hx Smoking History: Never smoked Have you smoked in the past 12 months: No If you are a former smoker, when did you quit?: 2000 'Breaking Loose' booklet given: 12/08/17 Hx Alcohol Use: No Drug/Substance Use Hx: No Substance Use Type: None Hx Substance Use Treatment: No Discharge - Discharge Information Problems reviewed: Yes Clinical Impression/Diagnosis: Bruising Condition: Stable Disposition: HOME - Admission No - Additional Discharge Information Prescriptions: Polyethylene Glycol 3350 [Miralax (For Bowel Prep) -] 17 gm PO DAILY #1 bottle - Follow up/Referral - Patient Discharge Instructions Patient Printed Discharge Instructions: DI for Hematoma (Bruise) Additional Instructions: You were seen in the ED for complaints of L arm bruising and constipation In the ED you were evaluated There does not appear to be an acute need for immediate hospitalization. You are advised to follow up with your Primary Care Physician within 1 week. You were given a prescription for Miralax a stool softener Return to the ED immediately if you experience worsening pain in the arm, numbness, tingling, fevers or abdominal pain. - Post Discharge Activity
--- NOTE | 2019-02-24 14:56 | PDOC ---
Attending Attestation - Resident Resident Name: Erin Redding - HPI HPI: 02/24/19 16:11 Pt presents to the Ed complaining of persistent hematoma on his upper arm after fall one week ago. States that he has no pain and the hematoma is not expanding. He is concerned that there may a "blood clot". Denies swelling. - Physicial Exam PE: 02/24/19 16:14 Agree with resident exam. Patient has large, healing hematoma to his L upper arm. No deformity. No tenderness. - Medical Decision Making 02/24/19 16:14 Pt presents to the ED with hematoma of the L arm. No concern for fracture or clot. Will discharge home with instructions to return for worsening symptoms.
[2019-02-24 14:57] VITALS: BP 120/90; PULSE 110; TEMP 97.3; BMI 24.6
[2019-02-24] MEDS ORDERED: POLYETHYLENE GLYCOL 3350 119 GM BTL PO ONE (15:19)
[2019-02-25] MEDS ORDERED: MAGNESIUM CITRATE 300 ML BOTTLE ONE (19:20)
== END 2019-02-24 15:45 | disposition home or self-care (01) ==
LOC: FER 14:29
DX: S40.022A Contusion of left upper arm, initial encounter (principal); W19.XXXA Unspecified fall, initial encounter; Y93.9 Activity, unspecified; Y92.9 Unspecified place or not applicable; N40.0 Benign prostatic hyperplasia without lower urinary tract symptoms; Z86.79 Personal history of other diseases of the circulatory system; Z79.82 Long term (current) use of aspirin
CPT/HCPCS: 99281-25

== ENCOUNTER 2019-02-25 18:40 | Emergency (ER) | payer OTHER ==
[2019-02-25 18:48] VITALS: BP 115/73; PULSE 91; TEMP 97.9; BMI 25.2
[2019-02-25] MEDS ORDERED: MAGNESIUM CITRATE 300 ML BOTTLE PO ONE (19:28)
[2019-02-25] MEDS ORDERED: BISACODYL 10 MG SUPP.RECT PR ONE (19:29)
[2019-02-25] MEDS ORDERED: BISACODYL 10 MG SUPP.RECT RC ONE (19:37)
--- NOTE | 2019-02-25 22:46 | PDOC ---
Documentation entered by Estevan Duarte SCRIBE, acting as scribe for Marcin Martins MD. Marcin Martins MD: This documentation has been prepared by the Felicia delgado Xhesika, SCRIBE, under my direction and personally reviewed by me in its entirety. I confirm that the documentation accurately reflects all work, treatment, procedures, and medical decision making performed by me. History of Present Illness - General Chief Complaint: Constipation Stated Complaint: CONSTIPATION History Source: Patient Exam Limitations: No Limitations - History of Present Illness Initial Comments: 02/25/19 19:16 The patient is a 78 year old male with a significant PMH of GA (, AAA sp repair, depression, bph who presents to the emergency department for constipation x 1 week. Patient notes he had heart surgery at [facility] 4 weeks ago ( does not remember the name), has been taking numerous amounts of antibiotics that have been making him constipated. Patient notes he was seen here in the ED 02/23/19 for similar complaints (constipation and L arm hematoma) and was given miralax. patient notes he endorses abdominal pain, secondary to his symptoms. Patient notes he last took miralax this morning, had a nbnb BM, however, he still feels constipated. The patient denies chest pain, shortness of breath, headache and dizziness. Denies fever, chills, cough, nausea, vomiting, diarrhea. Denies dysuria, frequency, urgency and hematuria. Allergies: NKDA PMD:Dr. Savage 02/25/19 23:36 Physical exam: Alert oriented well-developed well-nourished no acute distress cooperative Afebrile, vital signs normal PERRLA, fundi benign, ENT clear Neck supple without bruit mass or nodes Chest clear, no wheezes rales or rhonchi, full breath sounds bilaterally CV regular without murmur rub or gallop pulses full and symmetric no JVD or edema no bruits Abdomen soft nontender without mass organomegaly. Bowel sounds normal. Nondistended Rectal exam: No masses or tenderness. However, the ampulla and sigmoid appear to be full of bulky, soft, medium brown stool. The rectum is somewhat distended with stool. Impression: Constipation, no impaction. No abdominal pain or tenderness that would suggest intra-abdominal disease Plan: The patient was manually disimpacted and felt much better. He was administered magnesium citrate and Dulcolax suppository, which then resulted in a large bowel movement and marked improvement of his symptoms. 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 Fully ambulatory and in no distress at discharge, specifically, no abdominal pain, to follow-up as directed Past History - Past Medical History Allergies/Adverse Reactions: Allergies Allergy/AdvReac Type Severity Reaction Status Date / Time No Known Drug Allergies Allergy Verified 02/25/19 18:42 Home Medications: Ambulatory Orders Aspirin 81 mg PO DAILY 02/24/19 Atorvastatin Ca [Lipitor] 40 mg PO HS 02/24/19 Famotidine 20 mg PO BID 02/24/19 Metoprolol Succinate 50 mg PO DAILY 02/24/19 Paroxetine HCl [Paxil] 20 mg PO DAILY 02/24/19 Polyethylene Glycol 3350 [Miralax 255 gm Btl -] 17 gm PO DAILY #1 bottle Tamsulosin HCl [Flomax -] 0.4 mg PO DAILY 02/24/19 Ticagrelor [Brilinta -] 90 mg PO BID 02/24/19 Valsartan 40 mg PO DAILY 02/24/19 Bisacodyl [Dulcolax] 10 mg RC BID PRN #10 supp.rect 02/25/19 Anemia: No Asthma: No Cancer: No Cardiac Disorders: No CVA: No COPD: No CHF: No Dementia: No Diabetes: No 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) Disorders: Yes (ENLARGED PROSTATE) HTN: No Hypercholesterolemia: No Liver Disease: No Psychiatric Problems: Yes (DEPRESSION) Seizures: No Thyroid Disease: No - Surgical History Abdominal Surgery: Yes (ABDOMINAL AORTIC ANEURYSM 2012) Appendectomy: No Cardiac Surgery: No Cholecystectomy: No Lung Surgery: No Neurologic Surgery: No Orthopedic Surgery: Yes (L SHOULDER DISLOCATION, PARTIAL LEFT KNEE REPLACEMENT) - Psycho Social/Smoking Cessation Hx Smoking History: Former smoker Have you smoked in the past 12 months: No If you are a former smoker, when did you quit?: 2000 Information on smoking cessation initiated: No 'Breaking Loose' booklet given: 12/08/17 Hx Alcohol Use: (occasional) Drug/Substance Use Hx: No Substance Use Type: None Hx Substance Use Treatment: No Review of Systems - Review of Systems Able to Perform ROS?: Yes Comments:: 02/25/19 19:18 GENERAL/CONSTITUTIONAL: No fever or chills. No weakness. HEAD, EYES, EARS, NOSE AND THROAT: No change in vision. No ear pain or discharge. No sore throat. CARDIOVASCULAR: No chest pain or shortness of breath. RESPIRATORY: No cough, wheezing, or hemoptysis. GASTROINTESTINAL: No nausea, vomiting, diarrhea. +constipation. +abdominal pain GENITOURINARY: No dysuria, frequency, or change in urination. MUSCULOSKELETAL: No joint or muscle swelling or pain. No neck or back pain. SKIN: No rash NEUROLOGIC: No headache, vertigo, loss of consciousness, or change in strength/ sensation. ENDOCRINE: No increased thirst. No abnormal weight change. HEMATOLOGIC/LYMPHATIC: No anemia, easy bleeding, or history of blood clots. ALLERGIC/IMMUNOLOGIC: No hives or skin allergy. *Physical Exam - Vital Signs Last Vital Signs Temp Pulse Resp BP Pulse Ox 97.9 F 91 H 18 115/73 98 02/25/19 18:40 02/25/19 18:40 02/25/19 18:40 02/25/19 18:40 02/25/19 18:40 ED Treatment Course - ADDITIONAL ORDERS Additional order review: Laboratory Results 02/25/19 19:08 Stool Occult Blood Negative - Medications Given in the ED: ED Medications Discontinued Medications Generic Name Dose Route Start Last Admin Trade Name Freq PRN Reason Stop Dose Admin Bisacodyl 10 mg 02/25/19 19:29 02/25/19 19:41 Dulcolax Suppository - MA 02/25/19 19:30 10 mg ONCE ONE Administration Magnesium Citrate 300 ml 02/25/19 19:28 02/25/19 19:20 Citroma - PO 02/25/19 19:29 300 ml ONCE ONE Administration Discharge - Discharge Information Problems reviewed: Yes Clinical Impression/Diagnosis: Constipation Qualifiers: Constipation type: slow transit constipation Qualified Code(s): K59.01 - Slow transit constipation Condition: Improved Disposition: HOME - Admission No - Additional Discharge Information Prescriptions: Bisacodyl [Dulcolax] 10 mg RC BID PRN #10 supp.rect PRN Reason: Constipation - Follow up/Referral Referrals: Dirk Funez MD [Primary Care Provider] - Emmett Bergman MD [Staff Physician] - 3 days - Patient Discharge Instructions Patient Printed Discharge Instructions: DI for Constipation Additional Instructions: Increase fiber intake.. Continue MiraLAX. Use Dulcolax as needed. See gastroenterology specialist if symptoms persist. Return to ER if you develop abdominal pain or other significant symptoms. - Post Discharge Activity
== END 2019-02-25 22:53 | disposition home or self-care (01) ==
LOC: FER 18:40
DX: K59.01 Slow transit constipation (principal); I25.2 Old myocardial infarction; I71.4 Abdominal aortic aneurysm, without rupture; F32.9 Major depressive disorder, single episode, unspecified; N40.0 Benign prostatic hyperplasia without lower urinary tract symptoms; Z87.891 Personal history of nicotine dependence
CPT/HCPCS: 36415; 82272; 99281-25

== ENCOUNTER 2019-06-24 00:20 | Emergency (ER) | payer OTHER ==
[2019-06-24 00:35] VITALS: BP 132/75; PULSE 72; TEMP 97.5; BMI 25.8
[2019-06-24] MEDS ORDERED: MAGNESIUM CITRATE 300 ML BOTTLE ONE (01:05)
[2019-06-24] MEDS ORDERED: MAGNESIUM CITRATE 300 ML BOTTLE PO ONE ×2 (01:08→01:09)
--- NOTE | 2019-06-24 01:09 | PDOC ---
History of Present Illness - General Chief Complaint: Constipation Stated Complaint: CONSTIPATION Time Seen by Provider: 06/24/19 00:40 History Source: Patient Exam Limitations: No Limitations - History of Present Illness Initial Comments: 06/24/19 01:05 This is a 79-year-old gentleman who has history of constipation has been here in the emergency department x2 in the past for constipation. Patient does not take a laxative on a regular basis. Patient comes in after having no bowel movement for 1 week. Patient took Dulcolax yesterday and today without results. Otherwise patient denies any nausea vomiting or diarrhea. Patient denies any fevers or chills. Patient denies any crampy abdominal pain or rectal pain. Allergies: as per nursing notes Past Medical History: none Social history: Lives with family. No smoking. No alcohol. No illicit drugs. Surgical history: None General: No fevers or chills, no weakness, no weight loss HEENT: No change in vision. No sore throat,. No ear pain CardioVascular: no chest discomfort. No shortness of breath Respiratory:No cough, or wheezing. Gastrointestinal: no nausea, vomiting, diarrhea + constipation, No rectal bleeding Genitourinary: No dysuria, hematuria, or frequency Musculoskeletal: No joint or muscle pain or swelling Neurologic: No headache, vertigo, dizziness or loss of consciousness Psychiatric: nor depression Skin: No rashes or easy bruising Endocrine: no increased thirst or abnormal weight change Allergic: no skin or latex allergy All other systems reviewed and normal GENERAL: The patient is awake, alert, and fully oriented, in no acute distress. HEAD: Normal with no signs of trauma. EYES: Pupils equal, round and reactive to light, extraocular movements intact, sclera anicteric, conjunctiva clear. EXTREMITIES:atraumatic, Normal range of motion, no edema. ABD: Soft nondistended, nontender normal abdominal exam Rectal: Large amount of brown stool in the rectal vault NEUROLOGICAL: Normal speech, normal gait. PSYCH: Normal mood, normal affect. SKIN: Warm, Dry, normal turgor, no rashes or lesions noted. Procedure note large amount of stool was disimpacted manually from the rectal vault and a saline enema was administered post disimpaction Assessment and plan: This is a 79-year-old male with constipation. Patient was disimpacted and given an enema and discharged home with a bottle of mag citrate. Past History - Past Medical History Allergies/Adverse Reactions: Allergies Allergy/AdvReac Type Severity Reaction Status Date / Time No Known Drug Allergies Allergy Verified 02/25/19 18:42 Home Medications: Ambulatory Orders Aspirin 81 mg PO DAILY 02/24/19 Atorvastatin Ca [Lipitor] 40 mg PO HS 02/24/19 Famotidine 20 mg PO BID 02/24/19 Metoprolol Succinate 50 mg PO DAILY 02/24/19 Paroxetine HCl [Paxil] 20 mg PO DAILY 02/24/19 Polyethylene Glycol 3350 [Miralax 255 gm Btl -] 17 gm PO DAILY #1 bottle Tamsulosin HCl [Flomax -] 0.4 mg PO DAILY 02/24/19 Ticagrelor [Brilinta -] 90 mg PO BID 02/24/19 Valsartan 40 mg PO DAILY 02/24/19 Bisacodyl [Dulcolax] 10 mg RC BID PRN #10 supp.rect 02/25/19 Anemia: No Asthma: No Cancer: No Cardiac Disorders: No CVA: No COPD: No CHF: No Dementia: No Diabetes: No 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) Disorders: Yes (ENLARGED PROSTATE) HTN: No Hypercholesterolemia: No Liver Disease: No Psychiatric Problems: Yes (DEPRESSION) Seizures: No Thyroid Disease: No - Surgical History Abdominal Surgery: Yes (ABDOMINAL AORTIC ANEURYSM 2012) Appendectomy: No Cardiac Surgery: No Cholecystectomy: No Lung Surgery: No Neurologic Surgery: No Orthopedic Surgery: Yes (L SHOULDER DISLOCATION, PARTIAL LEFT KNEE REPLACEMENT) - Psycho Social/Smoking Cessation Hx Smoking History: Never smoked Have you smoked in the past 12 months: No If you are a former smoker, when did you quit?: 2000 Information on smoking cessation initiated: No 'Breaking Loose' booklet given: 12/08/17 Hx Alcohol Use: (occasional) Drug/Substance Use Hx: No Substance Use Type: None Hx Substance Use Treatment: No *Physical Exam - Vital Signs Last Vital Signs Temp Pulse Resp BP Pulse Ox 97.5 F L 72 17 132/75 98 06/24/19 00:21 06/24/19 00:21 06/24/19 00:21 06/24/19 00:21 06/24/19 00:21 Discharge - Discharge Information Problems reviewed: Yes Clinical Impression/Diagnosis: Constipation Qualifiers: Constipation type: unspecified constipation type Qualified Code(s): K59.00 - Constipation, unspecified Condition: Stable Disposition: HOME - Admission No - Follow up/Referral Referrals: Dirk Funez MD [Primary Care Provider] - - Patient Discharge Instructions Additional Instructions: Take a Dulcolax every day you do not have a bowel movement. In addition to that get some Metamucil or fiber and take that on a daily basis. Drink the bottle of mag citrate either tonight or tomorrow morning. Return to the emergency department immediately with ANY new, persistent or worsening symptoms. Continue any medications as previously prescribed by your physician. You should follow up with your primary doctor as soon as possible regarding today's emergency department visit. . Please make sure your doctor reviews the results of your emergency evaluation. Thank you for coming to the Emergency Department today for your care. It was a pleasure to see you today. Please note that your evaluation is INCOMPLETE until you follow-up with your doctor. - Post Discharge Activity
== END 2019-06-24 01:23 | disposition home or self-care (01) ==
LOC: FER 00:20
DX: K59.00 Constipation, unspecified (principal); Z87.891 Personal history of nicotine dependence; F32.9 Major depressive disorder, single episode, unspecified; N40.0 Benign prostatic hyperplasia without lower urinary tract symptoms
CPT/HCPCS: 99282-25

== ENCOUNTER 2021-08-03 16:49 | Inpatient (IN) | payer OTHER ==
[2021-08-03] MEDS ORDERED: ASPIRIN 325 MG ENTERIC COATED TABLET (FP) PO ONE (17:58)
[2021-08-03] MEDS ORDERED: ACETAMINOPHEN 325 MG TABLET (FP) PO ONE (17:59)
[2021-08-03 18:33] LABS: BASO % 0.3 % (0-2.0); EOS % 0.3 % (0-4.5); HEMATOCRIT 33.8 % (35.4-49); HEMOGLOBIN 11.3 GM/dL (11.7-16.9); LYMPH % 9.4 % (8-40); MCH 30.5 pg (25.7-33.7); MCHC 33.4 g/dl (32.0-35.9); MEAN CELL VOLUME 91.2 fl (80-96); MEAN PLT VOLUME 8.3 fl (7.5-11.1); MONO % 8.5 % (3.8-10.2); NEUT % 81.5 % (42.8-82.8); PLATELET COUNT 148 10^3/uL (134-434); RDW 14.1 % (11.9-15.9); WHITE BLOOD COUNT 10.1 K/mm3 (4.0-10.0)
[2021-08-03] MEDS ORDERED: ACETAMINOPHEN 325 MG TABLET (FP) ONE (18:38)
[2021-08-03] MEDS ORDERED: ASPIRIN 325 MG ENTERIC COATED TABLET (FP) ONE (18:38)
[2021-08-03 18:54] LABS: CHLORIDE 102 mmol/L (98-107); SODIUM 139 mmol/L (136-145)
[2021-08-03 18:56] LABS: ALBUMIN 3.3 g/dl (3.4-5.0); ANION GAP 7 MMOL/L (8-16); BLOOD UREA NITROGEN 26.1 mg/dL (7-18); CALCIUM 8.9 mg/dL (8.5-10.1); CO2 30 mmol/L (21-32); GLUCOSE,RANDOM 105 mg/dL (74-106); MAGNESIUM 2.2 mg/dL (1.8-2.4)
[2021-08-03 18:59] LABS: SGPT/ALT 18 U/L (13-61)
[2021-08-03 19:00] LABS: CREATININE 1.1 mg/dL (0.55-1.3); SGOT/AST 23 U/L (15-37)
[2021-08-03 19:02] LABS: BILIRUBIN,TOTAL 0.7 mg/dL (0.2-1); TOT PROT 7.1 g/dl (6.4-8.2)
[2021-08-03 19:03] LABS: ALK PHOS 111 U/L (45-117)
[2021-08-03] MEDS ORDERED: ATORVASTATIN CA 80 MG TABLET (FP) PO ONE (19:22)
[2021-08-03] MEDS ORDERED: ATORVASTATIN CA 80 MG TABLET (FP) ONE (20:39)
[2021-08-03 22:12] LABS: PH,URINE 6.5 (5.0-8.0); URINE APPEARANCE CLEAR; URINE BILIRUBIN NEGATIVE (NEGATIVE); URINE COLOR YELLOW; URINE GLUCOSE (UA) NEGATIVE (NEGATIVE); URINE KETONE NEGATIVE (NEGATIVE); URINE LEUK ESTERASE NEGATIVE (NEGATIVE); URINE NITRITE NEGATIVE (NEGATIVE); URINE PROTEIN NEGATIVE (NEGATIVE); URINE UROBILINOGEN 0.2 mg/dL (0.2-1.0)
[2021-08-03] MEDS ORDERED: AZITHROMYCIN 250 MG TABLET PO ONE (23:28)
[2021-08-03] MEDS ORDERED: MAG HYDROX/AL HYDROX/SIMETH 30 ML UNIT-DOSE CUP PO ONE (23:31)
[2021-08-04] MEDS ORDERED: AZITHROMYCIN 250 MG TABLET ONE ×2 (01:11→09:54)
[2021-08-04] MEDS ORDERED: CEFTRIAXONE 1 GM/50 ML BAG ONE ×2 (01:11→09:54)
[2021-08-04] MEDS ORDERED: MAG HYDROX/AL HYDROX/SIMETH 30 ML UNIT-DOSE CUP ONE (01:11)
[2021-08-04] MEDS: CEFTRIAXONE 1 GM in DEXTROSE 5%-WATER - 50 ML IVPB SCH ×2 (01:20→10:01)
[2021-08-04 05:50] LABS: BASO % 0.3 % (0-2.0); EOS % 1.7 % (0-4.5); HEMATOCRIT 33.5 % (35.4-49); HEMOGLOBIN 11.2 GM/dL (11.7-16.9); LYMPH % 14.3 % (8-40); MCH 30.4 pg (25.7-33.7); MCHC 33.5 g/dl (32.0-35.9); MEAN CELL VOLUME 90.9 fl (80-96); MEAN PLT VOLUME 8.5 fl (7.5-11.1); MONO % 9.9 % (3.8-10.2); NEUT % 73.8 % (42.8-82.8); PLATELET COUNT 138 10^3/uL (134-434); RBC 3.69 M/mm3 (4.00-5.60); RDW 14.3 % (11.9-15.9); WHITE BLOOD COUNT 7.5 K/mm3 (4.0-10.0)
[2021-08-04 06:16] LABS: CALCIUM 8.6 mg/dL (8.5-10.1)
[2021-08-04 06:18] LABS: ALBUMIN 2.9 g/dl (3.4-5.0); BLOOD UREA NITROGEN 20.1 mg/dL (7-18); MAGNESIUM 2.2 mg/dL (1.8-2.4)
[2021-08-04 06:19] LABS: PHOSPHOROUS 2.8 mg/dL (2.5-4.9)
[2021-08-04 06:21] LABS: BILIRUBIN,TOTAL 0.6 mg/dL (0.2-1); TOT PROT 6.6 g/dl (6.4-8.2)
[2021-08-04] MEDS ORDERED: TAMSULOSIN HCL 0.4 MG CAP PO SCH (08:30)
[2021-08-04] MEDS ORDERED: ASPIRIN COATED 81 MG TABLET.EC ONE (09:07)
[2021-08-04] MEDS ORDERED: TAMSULOSIN HCL 0.4 MG CAP ONE (09:07)
[2021-08-04] MEDS ORDERED: ENOXAPARIN NA (PORCINE) 40 MG/0.4 ML DISP.SYRIN SQ ONE (09:07)
[2021-08-04] MEDS ORDERED: ASPIRIN COATED 81 MG TABLET.EC PO SCH (10:00)
[2021-08-04] MEDS ORDERED: AZITHROMYCIN 250 MG TABLET PO SCH (10:00)
[2021-08-04] MEDS ORDERED: ENOXAPARIN NA (PORCINE) 40 MG/0.4 ML DISP.SYRIN SQ SCH (10:00)
[2021-08-04 15:39] VITALS: BMI 30.8
[2021-08-04] MEDS ORDERED: MELATONIN 5 MG TABLETS PO PRN (18:20)
[2021-08-04] MEDS: VALSARTAN 40 MG TABLET PO SCH (18:27)
[2021-08-04] MEDS: PARoxetine HCL 20 MG TABLET PO SCH (18:27)
[2021-08-04] MEDS: ARTIFICIAL TEARS (POLYVINYL ALCOHOL) OPTH DROPS OU PRN (21:57)
[2021-08-04] MEDS ORDERED: ATORVASTATIN CA 80 MG TABLET (FP) PO SCH (22:00)
[2021-08-04] MEDS ORDERED: TICAGRELOR 90 MG TABLET PO SCH (22:00)
[2021-08-05] MEDS: VALSARTAN 40 MG TABLET PO SCH (10:23)
[2021-08-05] MEDS ORDERED: cefTRIAXone SODIUM 1 GM VIAL ONE (10:27)
[2021-08-05] MEDS ORDERED: DEXTROSE 5%-WATER - 50 ML IVPB ONE (10:27)
[2021-08-05] MEDS: ASPIRIN COATED 81 MG TABLET.EC PO SCH (10:29)
[2021-08-05] MEDS: PARoxetine HCL 20 MG TABLET PO SCH (10:30)
[2021-08-05] MEDS: AZITHROMYCIN 250 MG TABLET PO SCH (10:30)
[2021-08-05] MEDS: ENOXAPARIN NA (PORCINE) 40 MG/0.4 ML DISP.SYRIN SQ SCH (10:30)
[2021-08-05] MEDS: CEFTRIAXONE 1 GM in DEXTROSE 5%-WATER - 50 ML IVPB SCH (10:30)
[2021-08-05] MEDS: TAMSULOSIN HCL 0.4 MG CAP PO SCH (10:30)
[2021-08-05] MEDS: ARTIFICIAL TEARS (POLYVINYL ALCOHOL) OPTH DROPS OU PRN (10:31)
[2021-08-05] MEDS ORDERED: POLYETHYLENE GLYCOL (HEALTHYLAX) 3350 17 GM PACKET PO PRN (19:42)
[2021-08-05] MEDS: ATORVASTATIN CA 80 MG TABLET (FP) PO SCH (22:09)
[2021-08-06] MEDS ORDERED: DEXTROSE 5%-WATER - 50 ML IVPB ONE (08:53)
[2021-08-06] MEDS ORDERED: cefTRIAXone SODIUM 1 GM VIAL ONE (08:53)
[2021-08-06] MEDS: AZITHROMYCIN 250 MG TABLET PO SCH (09:02)
[2021-08-06] MEDS: ASPIRIN COATED 81 MG TABLET.EC PO SCH (09:02)
[2021-08-06] MEDS: ENOXAPARIN NA (PORCINE) 40 MG/0.4 ML DISP.SYRIN SQ SCH (09:02)
[2021-08-06] MEDS: CEFTRIAXONE 1 GM in DEXTROSE 5%-WATER - 50 ML IVPB SCH (09:03)
[2021-08-06] MEDS: TAMSULOSIN HCL 0.4 MG CAP PO SCH (09:03)
[2021-08-06] MEDS: VALSARTAN 40 MG TABLET PO SCH (09:03)
[2021-08-06] MEDS: PARoxetine HCL 20 MG TABLET PO SCH (09:03)
[2021-08-06] MEDS: ATORVASTATIN CA 80 MG TABLET (FP) PO SCH (22:25)
[2021-08-07] MEDS ORDERED: cefTRIAXone SODIUM 1 GM VIAL ONE (09:18)
[2021-08-07] MEDS ORDERED: DEXTROSE 5%-WATER - 50 ML IVPB ONE (09:18)
[2021-08-07] MEDS: VALSARTAN 40 MG TABLET PO SCH (09:25)
[2021-08-07] MEDS: CEFTRIAXONE 1 GM in DEXTROSE 5%-WATER - 50 ML IVPB SCH (09:25)
[2021-08-07] MEDS: ASPIRIN COATED 81 MG TABLET.EC PO SCH (09:25)
[2021-08-07] MEDS: TAMSULOSIN HCL 0.4 MG CAP PO SCH (09:25)
[2021-08-07] MEDS: ENOXAPARIN NA (PORCINE) 40 MG/0.4 ML DISP.SYRIN SQ SCH (09:25)
[2021-08-07] MEDS: PARoxetine HCL 20 MG TABLET PO SCH (09:25)
[2021-08-07] MEDS ORDERED: AZITHROMYCIN IVPB 500 MG/250 ML BAG IVPB ONE (10:00)
[2021-08-07] MEDS: ATORVASTATIN CA 80 MG TABLET (FP) PO SCH (21:57)
[2021-08-07] MEDS: ARTIFICIAL TEARS (POLYVINYL ALCOHOL) OPTH DROPS OU PRN (21:58)
[2021-08-08 06:39] VITALS: PULSE 63
[2021-08-08] MEDS ORDERED: cefTRIAXone SODIUM 1 GM VIAL ONE (09:22)
[2021-08-08] MEDS ORDERED: DEXTROSE 5%-WATER - 50 ML IVPB ONE (09:22)
[2021-08-08] MEDS: CEFTRIAXONE 1 GM in DEXTROSE 5%-WATER - 50 ML IVPB SCH (09:33)
[2021-08-08] MEDS: ASPIRIN COATED 81 MG TABLET.EC PO SCH (09:34)
[2021-08-08] MEDS: ENOXAPARIN NA (PORCINE) 40 MG/0.4 ML DISP.SYRIN SQ SCH (09:34)
[2021-08-08] MEDS: PARoxetine HCL 20 MG TABLET PO SCH (09:35)
[2021-08-08] MEDS: TAMSULOSIN HCL 0.4 MG CAP PO SCH (09:35)
[2021-08-08] MEDS ORDERED: metoPROLOL SUCCINATE 25 MG TAB.SR.24H (FP) PO SCH (10:00)
[2021-08-08 13:59] VITALS: BP 94/51; TEMP 98.3
== END 2021-08-08 16:16 | disposition home or self-care (01) | DRG 194 ==
LOC: JER 16:49 → JERBED 22:33 → J5S 08-04 14:42
PROVIDERS: ADMIT Hospitalist; ATTEND Nurse Practitioner Acute Care
DX: J18.9 Pneumonia, unspecified organism (principal); J44.0 Chronic obstructive pulmonary disease with (acute) lower respiratory infection; I24.8 Other forms of acute ischemic heart disease; I25.2 Old myocardial infarction; N40.0 Benign prostatic hyperplasia without lower urinary tract symptoms; F32.A Depression, unspecified; R77.8 Other specified abnormalities of plasma proteins; R07.9 Chest pain, unspecified; I25.10 Atherosclerotic heart disease of native coronary artery without angina pectoris; I73.9 Peripheral vascular disease, unspecified; E78.5 Hyperlipidemia, unspecified; K30 Functional dyspepsia
CPT/HCPCS: 36415; 71046-TC-FY; 71250-TC; 80053; 80061; 81003; 83036; 83735; 84100; 84443; 84484; 85025; 87086; 87899; 93005; 93010; 93306-TC; 94010; 97116-GP; 97162-GP; 99285-25; C9803-CS; U0003; U0005

== ENCOUNTER 2023-04-02 02:23 | Emergency (ER) | payer OTHER ==
[2023-04-02 02:35] VITALS: BP 116/78; PULSE 95; RESP 18; TEMP 99; BMI 25.0
[2023-04-02] MEDS ORDERED: AZITHROMYCIN 500 MG TABLET PO ONE (02:55)
[2023-04-02] MEDS ORDERED: guaiFENesin/D-METHORPHAN HB 10 ML UNIT-DOSE CUPS PO ONE (02:56)
[2023-04-02] MEDS ORDERED: guaiFENesin/D-METHORPHAN HB 10 ML UNIT-DOSE CUPS ONE (03:01)
[2023-04-02] MEDS ORDERED: AZITHROMYCIN 500 MG TABLET ONE (03:01)
== END 2023-04-02 03:09 | disposition home or self-care (01) ==
LOC: FER 02:23
DX: R05.9 Cough, unspecified (principal); R09.3 Abnormal sputum; J20.9 Acute bronchitis, unspecified
CPT/HCPCS: 99283-25

== ENCOUNTER 2023-11-26 15:58 | Emergency (ER) | payer OTHER ==
[2023-11-26 16:06] VITALS: BP 128/79; PULSE 78; RESP 18; TEMP 98.1; BMI 24.5
[2023-11-26] MEDS ORDERED: CEPHALEXIN MONOHYDRATE 500 MG CAPSULE (UD) ONE (18:20)
[2023-11-26] MEDS: CEPHALEXIN MONOHYDRATE 500 MG CAPSULE (UD) PO ONE (18:25)
== END 2023-11-26 18:25 | disposition home or self-care (01) ==
LOC: FER 15:58
DX: S91.202A Unspecified open wound of left great toe with damage to nail, initial encounter (principal); W22.8XXA Striking against or struck by other objects, initial encounter
CPT/HCPCS: 73630-TC-LT; 99283-25

== ENCOUNTER 2024-02-24 04:11 | Day surgery (SDC) | payer OTHER ==
[2024-02-23 12:11] VITALS: BMI 26.6
[2024-02-24 13:23] VITALS: RESP 16
[2024-02-24] MEDS: LIDOCAINE HCL 1% PRESERVATIVE FREE - 30ML VIAL IJ ONE ×2 (13:53)
[2024-02-24] MEDS: DEXAMETHASONE SOD PHOSPHATE 10 MG/1 ML VIAL IVPUSH ONE ×2 (13:53)
[2024-02-24] MEDS: IOHEXOL 180 MG/1 ML ML IJ ONE ×2 (13:53)
[2024-02-24 14:37] VITALS: BP 132/74; PULSE 75; TEMP 98.2
[2024-02-24] MEDS ORDERED: ACETAMINOPHEN 325 MG TABLET (FP) ONE (15:03)
[2024-02-24] MEDS: ACETAMINOPHEN 500 MG TABLET (FP) PO PRN (15:13)
== END 2024-02-24 16:10 | disposition home or self-care (01) ==
LOC: JASU-SURG 04:11
PROVIDERS: ATTEND Pain Medicine Pain Medicine
PROC: 3E0R3BZ Introduction of Anesthetic Agent into Spinal Canal, Percutaneous Approach (ICD-10-PCS; 2024-02-24)
PROC: 3E0R33Z Introduction of Anti-inflammatory into Spinal Canal, Percutaneous Approach (ICD-10-PCS; principal; 2024-02-24 13:45)
DX: M54.16 Radiculopathy, lumbar region (principal)
CPT/HCPCS: 76000-TC-FY; J1100